=== PATIENT | female | born 1995 | race African-American/Black ===

== ENCOUNTER 2021-12-07 07:15 | Emergency (ER) | payer BC, SELFPAY ==
--- NOTE | ~2021-12-07 | CT_ITS ---
EXAMINATION: CT abdomen pelvis w con DATE: 12/07/2021 09:13 INDICATION: Right lower quadrant abdominal pain TECHNIQUE: Computed tomography (CT) of the abdomen and pelvis was performed with 100 cc Omnipaque 350 intravenous contrast. Automated exposure control and iterative reconstruction technique were employe d. Exam dose: 885.40 mGy-cm total exam DLP. COMPARISON: None. FINDINGS: There is minimal dependent atelectasis in the left lower lobe. Heart size is normal. No per icardial or pleural effusion. The liver, gallbladder, bile ducts, pancreas, pancreatic duct, spleen, adrenal glands and kidneys are unremarkable. No urinary tract calculus or hydroureteronephrosis. The urinary bladder is largely janna cuated. The uterus and adnexal areas are unremarkable. No evidence of appendicitis is noted. No bowel obstruction, bowel wall thickening, pneumatosis or int raperitoneal free air is detected. Normal caliber of the abdominal aorta. No intraperitoneal or retroperitoneal or pelvic mass lesion or adenopathy or ascites. There is mild to moderate degenerative disc disease at L5-S1 with posterior disc bulging at this leve l. Included skeletal structures are otherwise unremarkable. IMPRESSION: Degenerative disc disease and posterior disc bulging at L5-S1 No significant abnormality of the abdomen or pelvis Reviewed, dictated and finalized at [facility]. Reviewed, dictated and finalized at location A. DRYER
[2021-12-07 07:32] VITALS: BP 132/72; PULSE 82; RESP 16; TEMP 36.1; O2SAT 100
--- NOTE | 2021-12-07 07:54 | ED.ABDPAIN ---
HPI - Abdominal Pain General Chief Complaint: Abdominal Pain Stated Complaint: abd pain, nausea Time Seen by Provider: 12/07/21 07:24 Source: patient Mode of arrival: ambulatory Limitations: no limitations History of Present Illness HPI narrative: Patient complaining of right lower quadrant pain started 2 days ago, sharp, stabbing, intermittent, is constant today. Worse when she bends over, better if she keeps standing. Patient denies any fever, chills, vomiting, diarrhea, constipation. Patient have history of dysfunctional uterine bleeding for the last 6 months, has been on Provera for the last 2 months without significant improvement. Patient is sexually active, never been before. Patient drove herself to the emergency room from work, no history of abdominal surgery, smoking or drug use Related Data Allergies Allergy/AdvReac Type Severity Reaction Status Date / Time No Known Allergies Allergy Verified 12/07/21 07:38 Review of Systems Review of Systems: CONSTITUTIONAL: Denies fever, chills, or sweats. EYES: Denies visual changes, redness, or discharge. ENT: Denies rhinorrhea, congestion, sore throat, or otalgia. CARDIOVASCULAR: Denies chest pain, palpitations, or edema. RESPIRATORY: Denies cough or dyspnea. GASTROINTESTINAL: Denies abdominal pain, nausea, vomiting, or diarrhea. GENITOURINARY: Denies dysuria or hematuria. SKIN: Denies rash or itching. MUSCULOSKELETAL: Denies back pain, joint pain, or myalgia. NEUROLOGIC: Denies headache, numbness, or weakness. PSYCHIATRIC: Denies anxiety or depression. Exam Narrative: General appearance: Well-developed, well-nourished Skin: Normal color Head: Normocephalic, nontraumatic Eyes: Clear conjunctiva ENT: Oropharynx normal, ears normal, nose normal Neck: Supple, nontender Chest and respiratory: Airway patent, no respiratory distress, no accessory muscle use Heart: Regular rate/rhythm Abdomen: Soft, moderate tenderness right lower quadrant, positive guarding and rebound, no organomegaly, quiet bowel sounds Vascular: Normal peripheral pulses, normal capillary refill. Musculoskeletal: Normal range of motion, nontender back Neurologic: Alert and oriented ?3, CLAIMS CORRESPONDENCE CLERK is normal as tested, no gross motor deficit Course Course Emergency Course: Stable Vital Signs Vital signs: Vital Signs Temperature 36.1 C L 12/07/21 07:32 Pulse Rate 82 12/07/21 07:32 Respiratory Rate 16 12/07/21 07:32 Blood Pressure 132/72 12/07/21 07:32 Pulse Oximetry 100 12/07/21 07:32 Temperature 36.1 C L 12/07/21 07:32 Pulse Rate 82 12/07/21 07:32 Respiratory Rate 16 12/07/21 07:32 Blood Pressure 132/72 12/07/21 07:32 Pulse Oximetry 100 12/07/21 07:32 MDM - Abdominal Pain MDM Narrative Medical decision making narrative: Right lower quadrant pain. Depression diagnosis as below Differential Diagnosis Differential diagnosis: Likely abdominal pain, acute appendicitis, calculus of kidney, constipation, diverticulitis and other (Ovarian cyst, urinary tract infection) Lab Data Result diagrams: 12/07/21 07:59 12/07/21 07:59 Labs: Lab Results 12/07/21 12/07/21 12/07/21 Range/Units 07:59 07:59 08:29 WBC 4.3 L (4.5-10.0) K/mm3 RBC 3.80 L (4.2-5.4) M/mm3 Hgb 8.1 L (12.0-15.0) g/dL Hct 27.7 L (37.0-47.0) % MCV 72.9 L (80-100) fl MCH 21.3 L (26-34) pg MCHC 29.2 L (32-36) g/dl RDW 16.8 H (11.5-14.5) % Plt Count 341 (150-375) k/mm3 MPV 10.0 (7.4-10.4) fl Immature Gran % (Auto) 0.2 (0-0.5) % Neut % (Auto) 50.4 (45.5-73.1) % Lymph % (Auto) 38.2 (18.3-44.2) % [place] % (Auto) 7.2 (2.6-8.5) % Eos
[2021-12-07] MEDS: MORPHINE SULFATE (*CRX) 4 MG/ML INJ IV PUSH (08:02)
[2021-12-07] MEDS: ONDANSETRON INJ 4 MG/2 ML VIAL IV PUSH (08:02)
[2021-12-07] MEDS: SODIUM CHLORIDE 0.9% IV 1,000 ML 999 ML IV CONT (08:03)
[2021-12-07 08:06] LABS: Basophils Absolute Auto 0.1 K/mm3 (0.0-0.1); Basophils Percent Auto 1.2 % (0.2-1.2); Eosinophils Absolute Auto 0.1 K/mm3 (0-0.3); Eosinophils Percent Auto 2.8 % (0-4.4); Hematocrit 27.7 % (37.0-47.0); Hemoglobin 8.1 g/dL (12.0-15.0); Immature Granulocyte Absolute 0.01 K/mm3 (0.00-0.031); Immature Granulocyte Percent A 0.2 % (0-0.5); Lymphocytes Absolute Auto 1.64 K/mm3 (0.9-3.2); Lymphocytes Percent Auto 38.2 % (18.3-44.2); Mean Corpuscular HGB Conc 29.2 g/dl (32-36); Mean Corpuscular Hemoglobin 21.3 pg (26-34); Mean Corpuscular Volume 72.9 fl (80-100); Monocytes Absolute Auto 0.3 K/mm3 (0.1-0.6); Monocytes Percent Auto 7.2 % (2.6-8.5); Neutrophils Absolute Auto 2.2 K/mm3 (1.3-6.7); Neutrophils Percent Auto 50.4 % (45.5-73.1); Platelet Count Result 341 k/mm3 (150-375); Red Cell Distribution Width 16.8 % (11.5-14.5); White Blood Count 4.3 K/mm3 (4.5-10.0)
[2021-12-07 08:17] LABS: Anisocytosis 1+ (NORMAL); Hypochromasia 2+ (NORMAL); Platelet Estimate Adequate (Adequate)
[2021-12-07 08:18] LABS: Acanthocytes 1+ (NORMAL); Helmet Cells 1+ (NORMAL); Ovalocytes 2+ (NORMAL); Schistocytes 1+ (NORMAL); Tear Drop Cells 1+ (NORMAL)
[2021-12-07 08:20] LABS: Alanine Aminotransferase 18 U/L (4-35); Albumin Level 4.1 g/dL (3.5-5.1); Alkaline Phosphatase 37 U/L (38-126); Anion Gap 6 mmol/L (8-16); Aspartate Amino Transferase 43 U/L (14-36); Bilirubin,Total 0.5 mg/dL (0.2-1.3); Blood Urea Nitrogen 13 mg/dL (7-17); Calcium 8.5 mg/dL (8.4-10.2); Carbon Dioxide 23 mmol/L (22-30); Chloride 107 mmol/L (98-107); Estimated CRCL calculation 93 ml/min; Estimated Glomerular Filt Rate > 60; Glucose 91 mg/dL (65-110); Lipase 66 U/L (23-300); Potassium 3.9 mmol/L (3.4-5.0); Sodium 136 mmol/L (137-145)
[2021-12-07 08:40] LABS: Add Urine Microscopic? YES; Appearance Urine Clear (Clear); Bilirubin Urine Negative (Negative); Blood Urine Negative (Negative); Color Urine Yellow (Yellow); Glucose Urine UA Negative (Negative); Ketones Urine Negative (Negative); Leukocyte Esterase Ur Negative LEU/UL (Negative); Mucus Urine Heavy /lpf; Nitrate Urine Negative (Negative); Protein Urine 1+ mg/dL (Negative); RBC Urine 0-2 /hpf (0-2); Squamous Epithelial Cell Urine Occasional /hpf (Few); Urobilinogen Urine Negative mg/dL (<2.0); WBC Urine 0-3 /hpf
[2021-12-07 08:43] LABS: Specific Grav Ur 1.031 (1.001-1.035)
[2021-12-07 08:47] LABS: SPREG INTERNAL CONTROL Positive; Serum Qual hCG Negative
[2021-12-07 10:07] VITALS: BP 112/78; PULSE 73; RESP 16
== END 2021-12-07 10:07 | disposition home or self-care (01) ==
PROVIDERS: Emergency Provider Emergency Medicine
DX: N93.8 Other specified abnormal uterine and vaginal bleeding (principal); R10.30 Lower abdominal pain, unspecified; D50.0 Iron deficiency anemia secondary to blood loss (chronic)
CPT/HCPCS: 36415; 74177; 80053; 81001; 83690; 84703; 85025; 96361; 96374; 96375; 99284; J2270; J2405; J7030; Q9967

== ENCOUNTER 2022-01-03 15:04 | Outpatient (CLI) | payer BC, SELFPAY ==
--- NOTE | ~2022-01-03 | US_ITS ---
EXAMINATION: US pelvic complete w TV DATE: 01/03/2022 15:55 INDICATION: Abnormal uterine and vaginal bleeding. TECHNIQUE: Multiple transabdominal and endovaginal sonographic images of the pelvis were obtained. COMPARISON: None. FINDINGS: The uterus measures 7.5 x 3.6 x 4.6 cm. The endometrial complex measures 3 mm in thickness. The righ t ovary measures 4.1 x 3.2 x 2.5 cm. The left ovary measures 4.0 x 2.6 x 2.2 cm. There are multiple s ubcentimeter cysts at the periphery of both ovaries. Larger 2.2 cm anechoic cyst at the periphery of the left ovary. There is normal vascular flow in the ovaries. There is no free fluid in the pelvis. IMPRESSION: 1. 2.2 cm left adnexal cyst with multiple subcentimeter cysts at the periphery of both ovaries, the l atter which can be seen in the setting of polycystic ovarian disease. Reviewed, dictated and finalized at location A. CULTURAL ENGINEERING TEACHER IMPRESSION: 1. 2.2 cm left adnexal cyst with multiple subcentimeter cysts at the periphery of both ovaries, the latter which can be seen in the setting of polycystic ovar yuliana disease.
== END 2022-01-03 15:05 | disposition home or self-care (01) ==
LOC: ANHIMG 15:09
PROVIDERS: Visit Provider Student in an Organized Health Care Education/Training Program
DX: N93.8 Other specified abnormal uterine and vaginal bleeding (principal); R19.09 Other intra-abdominal and pelvic swelling, mass and lump
CPT/HCPCS: 76830; 76856

== ENCOUNTER 2022-01-25 11:41 | Outpatient (CLI) | payer BC, SELFPAY ==
[2022-01-25 12:22] LABS: Glucose 90 mg/dL (65-110)
[2022-01-25 12:42] LABS: Free T4 Free Thyroxine 0.82 ng/mL (0.78-2.19)
[2022-01-28 03:14] LABS: DHEA-Sulfate 127 mcg/dL (18-391); Insulin Level Total 4.3 uIU/mL (<=19.6)
[2022-01-28 08:19] LABS: LH 21.7 mIU/mL (***); Prolactin 11.1 ng/mL (***); Triiodothyronine T3 Free 3.2 pg/mL (2.3-4.2)
[2022-01-29 14:14] LABS: Testosterone Free 10.3 pg/mL (0.2-5.0); Testosterone Total 137 ng/dL (2-45)
== END 2022-01-25 11:42 | disposition home or self-care (01) ==
LOC: ANHLAB 11:43
PROVIDERS: Visit Provider Student in an Organized Health Care Education/Training Program
DX: E28.2 Polycystic ovarian syndrome (principal)
CPT/HCPCS: 36415; 82627; 82947; 83001; 83002; 83498; 83525; 84146; 84402; 84403; 84439; 84443; 84481

== ENCOUNTER 2022-03-01 11:15 | Outpatient (CLI) | payer OTHER, SELFPAY ==
[2022-03-01 11:49] LABS: Hemoglobin A1C 4.9 % (<5.7)
[2022-03-01 12:03] LABS: Beta HCG Quantitative < 2.39 mIU/ML
== END 2022-03-01 11:16 | disposition home or self-care (01) ==
LOC: ANHLAB 11:21
PROVIDERS: Visit Provider Student in an Organized Health Care Education/Training Program
DX: E28.2 Polycystic ovarian syndrome (principal)
CPT/HCPCS: 36415; 83036; 84702

== ENCOUNTER 2022-05-08 21:42 | Emergency (ER) | payer OTHER, SELFPAY ==
--- NOTE | ~2022-05-08 | CT_ITS ---
EXAMINATION: CT abdomen pelvis w con DATE: 05/09/2022 04:55 INDICATION: Left lower quadrant abdominal pain. TECHNIQUE: Computed tomography (CT) of the abdomen and pelvis was performed with 100 mL Omnipaque 300 intravenous contrast. Automated exposure control and iterative reconstruction technique were employe d. The dose-length product was 998.96 mGy-cm. COMPARISON: CT abdomen and pelvis 12/07/2021 FINDINGS: The visualized portions of the lung bases are clear without pneumonia or pleural effusion. The heart size is normal. No pericardial effusion. The liver, gallbladder, spleen, pancreas, adrenal glands, and kidneys are normal. There are no dilated loops of bowel. The appendix is normal. There ar e no pathologically enlarged lymph nodes. There is physiologic fluid in the pelvis. There is severe d egenerative disc disease at L5-S1. IMPRESSION: 1. No etiology for the patient's symptoms. Reviewed, dictated and finalized at location A.
[2022-05-08 21:57] VITALS: BP 129/94; PULSE 78; RESP 16; TEMP 36.3; O2SAT 98
[2022-05-09] VITALS (16 sets, daily range): BP systolic 123–137; BP diastolic 85–93; PULSE 52–100; RESP 16–18; TEMP 36.8; O2SAT 98–100
[2022-05-09 03:22] LABS: Basophils Absolute Auto 0.1 K/mm3 (0.0-0.1); Eosinophils Absolute Auto 0.4 K/mm3 (0-0.3); Eosinophils Percent Auto 5.7 % (0-4.4); Hematocrit 40.9 % (37.0-47.0); Hemoglobin 12.6 g/dL (12.0-15.0); Immature Granulocyte Absolute 0.02 K/mm3 (0.00-0.031); Immature Granulocyte Percent A 0.3 % (0-0.5); Lymphocytes Absolute Auto 3.04 K/mm3 (0.9-3.2); Lymphocytes Percent Auto 41.6 % (18.3-44.2); Mean Corpuscular HGB Conc 30.8 g/dl (32-36); Mean Corpuscular Volume 81.3 fl (80-100); Mean Platelet Volume 9.6 fl (7.4-10.4); Monocytes Absolute Auto 0.6 K/mm3 (0.1-0.6); Monocytes Percent Auto 8.6 % (2.6-8.5); Neutrophils Absolute Auto 3.1 K/mm3 (1.3-6.7); Neutrophils Percent Auto 42.8 % (45.5-73.1); Platelet Count Result 239 k/mm3 (150-375); Red Blood Count 5.03 M/mm3 (4.2-5.4); Red Cell Distribution Width 15.3 % (11.5-14.5); White Blood Count 7.3 K/mm3 (4.5-10.0)
[2022-05-09 03:31] LABS: Appearance Urine Clear (Clear); Bilirubin Urine Negative (Negative); Blood Urine Negative (Negative); Color Urine Yellow (Yellow); Glucose Urine UA Negative (Negative); Ketones Urine Trace mg/dL (Negative); Leukocyte Esterase Ur Negative LEU/UL (Negative); Nitrate Urine Negative (Negative); Protein Urine Trace mg/dL (Negative); Specific Grav Ur >= 1.030 (1.001-1.035); Urobilinogen Urine 0.2 mg/dL (<2.0)
[2022-05-09 03:32] LABS: Alanine Aminotransferase 27 U/L (6-35); Albumin Level 4.4 g/dL (3.5-5.1); Alkaline Phosphatase 53 U/L (38-126); Anion Gap 5 mmol/L (8-16); Aspartate Amino Transferase 41 U/L (14-36); Bilirubin,Total 0.3 mg/dL (0.2-1.3); Blood Urea Nitrogen 19 mg/dL (7-17); Carbon Dioxide 28 mmol/L (22-30); Chloride 107 mmol/L (98-107); Estimated CRCL calculation 99 ml/min; Estimated Glomerular Filt Rate > 60; Glucose 88 mg/dL (65-110); Lipase 73 U/L (23-300); Potassium 4.2 mmol/L (3.4-5.0); Sodium 140 mmol/L (137-145)
[2022-05-09 03:42] LABS: Mucus Urine Few /lpf; Squamous Epithelial Cell Urine Occasional /hpf (Few); WBC Urine 0-3 /hpf
[2022-05-09 03:47] LABS: Add Urine Microscopic? YES
--- NOTE | 2022-05-09 06:04 | ED.GENADULT ---
HPI - General Adult General Chief complaint: Abdominal Pain Stated complaint: abd pain Time Seen by Provider: 05/09/22 03:31 History of Present Illness HPI narrative: Patient is a 27-year-old female who presents ER with left-sided abdominal pain. Ongoing for 3 to 4 days. Associate with some diarrhea. Developed some bright red blood within her stool today that is only when she wipes. No fevers or chills or sweats. Pain is become more sharp in the left lower quadrant. No history of diverticulitis. No known sick contacts. Has not had any recent travel. Has not treated from any untreated water sources. Related Data Allergies Allergy/AdvReac Type Severity Reaction Status Date / Time No Known Allergies Allergy Verified 05/08/22 22:01 Review of Systems Review of Systems: All systems reviewed & are unremarkable except as noted in HPI and below Constitutional: Constitutional: Denies chills and Denies fever(s) Cardiovascular: Cardiovascular: Denies chest pain and Denies rapid heart rate Respiratory: Respiratory: Denies cough and Denies dyspnea Gastrointestinal: Gastrointestinal: Reports abdominal pain, Reports diarrhea, Denies nausea and Denies vomiting Genitourinary: Genitourinary: Denies dysuria and Denies flank pain PMFSH Past Medical History Medical History Anemia Asthma History of pulmonary embolism From OCP's History of uterine fibroid ??? Per pt Surgical History Surgical History [place] teeth removed Family History Family History Mother Asthma Diabetes mellitus Hypertension Heart disease Cerebrovascular accident Thyroid disorder Sibling Asthma Diabetes mellitus Depression Social History Social History Smoking status: Never smoker Alcohol intake: current Substance use: never Exam Narrative: GENERAL: Well-appearing, well-nourished, and in no acute distress. HEAD: Normocephalic, atraumatic. EYES: PERRL and EOMI. ENT: Mucous membranes moist. CHEST: Clear to auscultation. No respiratory distress. HEART: Regular rate and rhythm. Normal peripheral pulses. ABDOMEN: Soft, tender palpation left lower quadrant, no rebound or guarding. Nondistended. EXTREMITIES: Normal range of motion. No edema. SKIN: Warm, dry, no rash. NEURO: Alert and oriented x3. PSYCH: Normal mood and affect. Course Course Emergency Course: Patient resting comfortably. Informed results. Discharge home. Vital Signs Vital signs: Vital Signs Temperature 97.3 F L 05/08/22 21:57 Pulse Rate 78 05/08/22 21:57 Respiratory Rate 16 05/08/22 21:57 Blood Pressure 129/94 H 05/08/22 21:57 Pulse Oximetry 98 05/08/22 21:57 Oxygen Delivery Room Air 05/08/22 21:57 Temperature 98.2 F 05/09/22 02:33 Pulse Rate 76 05/09/22 03:46 Respiratory Rate 16 05/09/22 03:46 Blood Pressure 132/92 H 05/09/22 04:31 Pulse Oximetry 100 05/09/22 05:45 Oxygen Delivery Room Air 05/08/22 21:57 Medical Decision Making Vital Signs Vital Signs: Vital Signs Temperature 97.3 F L 05/08/22 21:57 Pulse Rate 78 05/08/22 21:57 Respiratory Rate 16 05/08/22 21:57 Blood Pressure 129/94 H 05/08/22 21:57 Pulse Oximetry 98 05/08/22 21:57 Oxygen Delivery Room Air 05/08/22 21:57 Temperature 98.2 F 05/09/22 02:33 Pulse Rate 76 05/09/22 03:46 Respiratory Rate 16 05/09/22 03:46 Blood Pressure 132/92 H 05/09/22 04:31 Pulse Oximetry 100 05/09/22 05:45 Oxygen Delivery Room Air 05/08/22 21:57 Lab Data Result diagrams: 05/09/22 03:14 05/09/22 03:14 Labs: Lab Results 05/09/22 05/09/22 05/09/22 Range/Units 03:14 03:14 03:25 WBC 7.3 (4.5-10.0) K/mm3 RBC 5.03 (4.2-5.4) M/mm3 Hgb 12.6 D (12.0-1
== END 2022-05-09 06:57 | disposition home or self-care (01) ==
PROVIDERS: Emergency Provider Emergency Medicine
DX: K52.9 Noninfective gastroenteritis and colitis, unspecified (principal); D64.9 Anemia, unspecified; J45.909 Unspecified asthma, uncomplicated; Z86.711 Personal history of pulmonary embolism
CPT/HCPCS: 36415; 74177; 80053; 81001; 81025; 83690; 85025; 99284; Q9967

== ENCOUNTER 2022-07-20 15:21 | Outpatient (CLI) | payer OTHER, SELFPAY ==
--- NOTE | ~2022-07-20 | CT_ITS ---
EXAMINATION: CT BRAIN W/O DATE: 07/20/2022 15:37 INDICATION: Headache TECHNIQUE: Computed tomography (CT) of the head was performed without intravenous contrast. The dose- length product was 605.33 mGy-cm. Automated exposure control and iterative reconstruction technique w ere employed. COMPARISON: No prior studies for comparison. FINDINGS: Normal brain parenchymal volume for age. Normal mark-white differentiation. No acute intrac ranial hemorrhage, infarction, mass or mass effect. No ventriculomegaly or midline shift. Midline sagittal images demonstrate a normal corpus callosum, c raniovertebral junction and sella turcica. Basilar cisterns are patent. Paranasal sinuses and mastoids are pneumatized. No depressed skull fractures. IMPRESSION: 1. No acute intracranial abnormality. Reviewed, dictated and finalized at location A.
== END 2022-07-20 15:22 | disposition home or self-care (01) ==
PROVIDERS: PCP Emergency Medicine; Visit Provider Emergency Medicine
DX: R51.9 Headache, unspecified (principal)
CPT/HCPCS: 70450

== ENCOUNTER 2022-08-21 11:18 | Emergency (ER) | payer OTHER, SELFPAY ==
[2022-08-21 11:22] VITALS: BP 113/85; PULSE 63; RESP 16; TEMP 36.4; O2SAT 100
--- NOTE | 2022-08-21 11:46 | ED.HA ---
HPI - Headache General Chief Complaint: Headache Stated Complaint: Headache Time Seen by Provider: 08/21/22 11:22 History of Present Illness HPI Narrative: 27-year-old female with a history of migraine headaches presents the emergency room for evaluation of a headache. Patient states that headache has been present since last night and located behind her right eye. Describes pain as a stabbing pain. Headache is associated with photophobia, phonophobia. Patient also endorses nausea. Headache is typical of prior migraines headaches. Related Data Allergies Allergy/AdvReac Type Severity Reaction Status Date / Time No Known Allergies Allergy Verified 08/21/22 12:05 Review of Systems Review of Systems: CONSTITUTIONAL: Denies fever, chills, or sweats. EYES: Denies visual changes, redness, or discharge. ENT: Denies rhinorrhea, congestion, sore throat, or otalgia. CARDIOVASCULAR: Denies chest pain, palpitations, or edema. RESPIRATORY: Denies cough or dyspnea. GASTROINTESTINAL: Reports nausea GENITOURINARY: Denies dysuria or hematuria. SKIN: Denies rash or itching. MUSCULOSKELETAL: Denies back pain, joint pain, or myalgia. NEUROLOGIC: Reports headache PSYCHIATRIC: Denies anxiety or depression. PMFSH Past Medical History Medical History Anemia Asthma History of pulmonary embolism From OCP's History of uterine fibroid ??? Per pt Surgical History Surgical History [place] teeth removed Family History Family History Mother Asthma Diabetes mellitus Hypertension Heart disease Cerebrovascular accident Thyroid disorder Sibling Asthma Diabetes mellitus Depression Social History Social History Smoking status: Never smoker Alcohol intake: current Substance use: never Exam Narrative: GENERAL: Well-appearing, well-nourished, no physical limitations, and in no acute distress. HEAD: Normocephalic, atraumatic. EYES: Conjunctivae normal, PERRLA and EOMI. ENT: External nose normal, Nares clear, no rhinorrhea or epistaxis. Mucous membranes moist. Oropharynx without tonsillar hypertrophy exudate or other lesions. External ears normal, bilateral TMs normal bilaterally NECK: Supple. No meningeal signs. CHEST: Clear to auscultation. No respiratory distress. No wheezes rales or rhonchi. HEART: Regular rate and rhythm. No murmur heard. Normal peripheral pulses. EXTREMITIES: Normal range of motion. No edema. No clubbing or cyanosis SKIN: Warm, dry, no rash. No noted wounds NEURO: No focal deficits. Alert and oriented x3. MAEW. CN's II-XI intact bilaterally, normal gait PSYCH: Cooperative. Normal mood and affect. Course Vital Signs Vital signs: Vital Signs Temperature 36.4 C L 08/21/22 11:22 Pulse Rate 63 08/21/22 11:22 Respiratory Rate 16 08/21/22 11:22 Blood Pressure 113/85 08/21/22 11:22 Pulse Oximetry 100 08/21/22 11:22 Oxygen Delivery Room Air 08/21/22 11:22 Temperature 36.4 C L 08/21/22 11:22 Pulse Rate 63 08/21/22 11:22 Respiratory Rate 16 08/21/22 11:22 Blood Pressure 113/85 08/21/22 11:22 Pulse Oximetry 100 08/21/22 11:22 Oxygen Delivery Room Air 08/21/22 11:22 Discharge Plan Discharge Clinical Impression: Headache Patient Disposition: Home, Self-Care Condition: Stable Instructions: Antibiotic Form, Acute Headache (ED) Additional Instructions: May take Tylenol as needed today for your headaches. Recommend following with your primary care physician, as you may need a medication to alleviate future migraines such as rizatriptan or sumatriptan. Prescriptions: No Action ferrous sulfate 325 mg (65 mg iron) tablet 325 mg PO DAILY Qty: 90 0RF metformin 500 mg tablet 500 mg PO DAILY Qty: 90 0RF Follow-up/Re
[2022-08-21] MEDS: SODIUM CHLORIDE 0.9% IV 1,000 ML 999 ML IV CONT (12:02)
[2022-08-21] MEDS: METOCLOPRAMIDE HCL INJ 10 MG/2 ML VIAL IV PUSH (12:02)
[2022-08-21] MEDS: KETOROLAC 30 MG/ML VIAL (*BKC) IV PUSH (12:03)
[2022-08-21] MEDS: methylPREDNISolone SOD SUCC 125 MG VIAL IV PUSH (12:03)
[2022-08-21] MEDS: diphenhydrAMINE HCl INJ 50 MG/ML VIAL 25 MG IV PUSH (12:03)
[2022-08-21 14:04] VITALS: BP 115/80; PULSE 74; RESP 18; O2SAT 100
== END 2022-08-21 14:05 | disposition home or self-care (01) ==
PROVIDERS: Emergency Provider Nurse Practitioner Family; PCP Emergency Medicine
DX: R51.9 Headache, unspecified (principal); J45.909 Unspecified asthma, uncomplicated; Z86.711 Personal history of pulmonary embolism; Z86.2 Personal history of diseases of the blood and blood-forming organs and certain disorders involving the immune mechanism
CPT/HCPCS: 96361; 96374; 96375; 99284; J1200; J1885; J2765; J2930; J7030

== ENCOUNTER 2022-08-28 15:06 | Outpatient (CLI) | payer OTHER, SELFPAY ==
[2022-08-28 15:49] LABS: Iron 87 ug/dL (37-170)
[2022-08-28 15:59] LABS: Percent Iron Saturation 25 % (20-50)
== END 2022-08-28 15:07 | disposition home or self-care (01) ==
PROVIDERS: PCP Emergency Medicine; Visit Provider Emergency Medicine
DX: D64.9 Anemia, unspecified (principal)
CPT/HCPCS: 36415; 83540; 83550

== ENCOUNTER 2022-10-09 14:52 | Emergency (ER) | payer OTHER, SELFPAY ==
--- NOTE | ~2022-10-09 | CT_ITS ---
EXAMINATION: CTA chest PE protocol DATE: 10/09/2022 20:12 INDICATION: SOA, h/o PE TECHNIQUE: Computed tomography angiography (CTA) of the chest was performed with 100 mL Omnipaque-350 intravenous contrast timed to evaluate the pulmonary arteries. Coronal maximum intensity projection 3D-reconstructions were created by the technologist. The dose-length product (DLP) was 497.81 mGy-cm. Automated exposure control and iterative reconstruction technique were employed. COMPARISON: X-ray chest, same date; CT abdomen and pelvis 05/09/2022. FINDINGS: Lung parenchyma and airways: Granuloma or intrapulmonary lymph node in the left upper lobe adjacent t o the major fissure. Minimal dependent atelectasis. The lungs are otherwise clear. Pleura: Unremarkable. Thoracic inlet, axillae and chest wall: Unremarkable. Thoracic aorta: Normal. Mediastinum: Normal. Heart and pericardium: Normal. Coronary artery calcifications: Absent. Upper abdomen: No significant finding. Bones: No acute osseous finding. Pulmonary arteries: Study quality: Adequate. No pulmonary emboli detected. IMPRESSION: No CT evidence of acute pulmonary embolus. No acute thoracic process detected. Reviewed, dictated and finalized at location K. OECONOMICS PROFESSOR
--- NOTE | ~2022-10-09 | XR_ITS ---
Clinical Indication: Shortness of breath, hemoptysis PA and lateral views of the chest: Comparison: None Findings: The lungs are clear, without evidence of focal consolidation or pleural effusion. Cardiome diastinal silhouette is within normal limits. Bones and soft tissues are unremarkable. Impression: Normal chest. Reviewed, dictated and finalized at location [] TIVE WRITING PROFESSOR Impression: Normal chest.
[2022-10-09 15:00] VITALS: BP 132/75; PULSE 63; RESP 18; TEMP 36.7; O2SAT 100
--- NOTE | 2022-10-09 15:03 | ECG_ITS ---
Measurements Intervals [place] Rate: 61 P: 41 OR: 180 QRS: 49 QRSD: 102 T: 29 QT: 432 QTc: 436 Interpretive Statements SINUS RHYTHM WITH SINUS ARRHYTHMIA INCOMPLETE RIGHT BUNDLE BRANCH BLOCK NO PREVIOUS ECG AVAILABLE FOR COMPARISON Electronically Signed On 10-09-2022 16:39:35 MEMBERSHIP COUNSELOR by Morenita Nevarez M.D.
[2022-10-09 15:30] LABS: Basophils Absolute Auto 0.1 K/mm3 (0.0-0.1); Basophils Percent Auto 0.9 % (0.2-1.2); Eosinophils Absolute Auto 0.3 K/mm3 (0-0.3); Eosinophils Percent Auto 4.5 % (0-4.4); Hematocrit 41.2 % (37.0-47.0); Immature Granulocyte Absolute 0.01 K/mm3 (0.00-0.031); Immature Granulocyte Percent A 0.1 % (0-0.5); Lymphocytes Absolute Auto 3.17 K/mm3 (0.9-3.2); Lymphocytes Percent Auto 47.5 % (18.3-44.2); Mean Corpuscular HGB Conc 31.6 g/dl (32-36); Mean Corpuscular Hemoglobin 26.1 pg (26-34); Mean Corpuscular Volume 82.7 fl (80-100); Mean Platelet Volume 9.9 fl (7.4-10.4); Monocytes Absolute Auto 0.5 K/mm3 (0.1-0.6); Monocytes Percent Auto 6.9 % (2.6-8.5); Neutrophils Absolute Auto 2.7 K/mm3 (1.3-6.7); Neutrophils Percent Auto 40.1 % (45.5-73.1); Platelet Count Result 247 k/mm3 (150-375); Red Blood Count 4.98 M/mm3 (4.2-5.4); Red Cell Distribution Width 13.8 % (11.5-14.5); White Blood Count 6.7 K/mm3 (4.5-10.0)
[2022-10-09 15:38] LABS: Alanine Aminotransferase 25 U/L (6-35); Albumin Level 4.2 g/dL (3.5-5.1); Alkaline Phosphatase 49 U/L (38-126); Anion Gap 6 mmol/L (8-16); Aspartate Amino Transferase 33 U/L (14-36); Bilirubin,Total 0.6 mg/dL (0.2-1.3); Blood Urea Nitrogen 15 mg/dL (7-17); Calcium 8.5 mg/dL (8.4-10.2); Carbon Dioxide 27 mmol/L (22-30); Chloride 104 mmol/L (98-107); Estimated CRCL calculation 91 ml/min; Estimated Glomerular Filt Rate > 60; Glucose 97 mg/dL (65-110); Potassium 3.5 mmol/L (3.4-5.0); Sodium 137 mmol/L (137-145)
[2022-10-09] MEDS: KETOROLAC 30 MG/ML VIAL (*BKC) IV PUSH (19:52)
--- NOTE | 2022-10-09 20:53 | ED.SOB ---
HPI - SOB/Dyspnea General Chief Complaint: Shortness of Breath/Dyspnea Stated Complaint: shortness of breath with cough - hemoptysis Time Seen by Provider: 10/09/22 19:19 History of Present Illness HPI Narrative: Patient is a 27-year-old female with history of PE who presents ER with concerns for recurrence of PE. Her previous one was related to control which she is no longer on. She completed her course of blood thinners and is no longer taking those. She reports over the last couple days she is developed some cough and pain with deep breaths. She has had some scant hemoptysis. No exertional chest pain or chest pressure. 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 She has not noticed any lower extremity swelling but has felt fatigue in her legs recently. Related Data Allergies Allergy/AdvReac Type Severity Reaction Status Date / Time No Known Allergies Allergy Verified 10/09/22 14:53 Review of Systems Review of Systems: All systems reviewed & are unremarkable except as noted in HPI and below Constitutional: Constitutional: Denies chills, Denies fatigue and Denies fever(s) ENT: Denies nasal congestion and Denies sore throat Cardiovascular: Cardiovascular: Reports chest pain, Denies rapid heart rate and Denies radiating jaw, neck or arm pain Respiratory: Respiratory: Denies cough and Denies dyspnea Comments: Pain with deep breath Gastrointestinal: Gastrointestinal: Denies abdominal pain, Denies nausea and Denies vomiting PMFSH Past Medical History Medical History Anemia Asthma History of pulmonary embolism From OCP's History of uterine fibroid ??? Per pt Surgical History Surgical History [place] teeth removed Family History Family History Mother Asthma Diabetes mellitus Hypertension Heart disease Cerebrovascular accident Thyroid disorder Sibling Asthma Diabetes mellitus Depression Social History Social History Smoking status: Never smoker Alcohol intake: current Substance use: never Exam Narrative: GENERAL: Well-appearing, well-nourished, and in no acute distress. HEAD: Normocephalic, atraumatic. EYES: PERRL and EOMI. CHEST: Clear to auscultation. No respiratory distress. HEART: Regular rate and rhythm. Normal peripheral pulses. ABDOMEN: Soft, nontender, nondistended. EXTREMITIES: Normal range of motion. No edema. Negative Homans' sign. SKIN: Warm, dry, no rash. NEURO: Alert and oriented x3. PSYCH: Normal mood and affect. Course Course Emergency Course: No PE. Suspect pleurisy. Will place on anti-inflammatories. She had improvement with Toradol. Vital Signs Vital signs: Vital Signs Temperature 98.0 F 10/09/22 15:00 Pulse Rate 63 10/09/22 15:00 Respiratory Rate 18 10/09/22 15:00 Blood Pressure 132/75 10/09/22 15:00 Pulse Oximetry 100 10/09/22 15:00 Oxygen Delivery Room Air 10/09/22 15:00 Temperature 98.0 F 10/09/22 15:00 Pulse Rate 64 10/09/22 21:15 Respiratory Rate 19 10/09/22 21:15 Blood Pressure 122/92 H 10/09/22 21:15 Pulse Oximetry 100 10/09/22 21:15 Oxygen Delivery Room Air 10/09/22 19:28 MDM - SOB/Dyspnea Lab Data 10/09/22 15:16 10/09/22 15:16 Labs: Lab Results 10/09/22 10/09/22 Range/Units 15:16 15:16 WBC 6.7 (4.5-10.0) K/mm3 RBC 4.98 (4.2-5.4) M/mm3 Hgb 13.0 (12.0-15.0) g/dL Hct 41.2 (37.0-47.0) % MCV 82.7 (80-100) fl MCH 26.1 (26-34) pg MCHC 31.6 L (32-36) g/dl RDW 13.8 (11.5-14.5) % Plt Count 247 (150-375) k/mm3 MPV 9.9 (7.4-10.4) fl Immature Gran % (Auto) 0.1 (0-0.5) % Neut % (Auto) 40.1 L (45.5-73.1) % Lymph % (Auto) 47.
[2022-10-09 21:03] VITALS: BP 120/72; PULSE 55; RESP 18; O2SAT 100
[2022-10-09 21:15] VITALS: BP 122/92; PULSE 64; RESP 19; O2SAT 100
== END 2022-10-09 21:16 | disposition home or self-care (01) ==
PROVIDERS: Emergency Medicine; Emergency Provider Emergency Medicine; PCP Emergency Medicine
DX: R09.1 Pleurisy (principal); Z86.711 Personal history of pulmonary embolism
CPT/HCPCS: 36415; 71046; 71275; 80053; 81025; 85025; 93005; 96374; 99284; J1885; Q9967

== ENCOUNTER 2022-11-18 09:49 | Emergency (ER) | payer OTHER, SELFPAY ==
--- NOTE | ~2022-11-18 | XR_ITS ---
EXAMINATION: XR knee RT min 4V DATE: 11/18/2022 10:08 INDICATION: Right knee injury and pain. TECHNIQUE: 4 views of right knee were obtained. COMPARISON: None. FINDINGS: Bone alignment is normal. No fracture. There is mild tricompartmental osteoarthritis. No kn ee joint effusion. IMPRESSION: 1. Mild right knee osteoarthritis. Reviewed, dictated and finalized at location A. 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
[2022-11-18 09:52] VITALS: BP 127/95; PULSE 61; RESP 16; TEMP 36.6; O2SAT 100
--- NOTE | 2022-11-18 10:04 | ED.EXTPRO ---
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 Patient has been evaluated by her primary care provider was instructed to wait before they ordered an x-ray . Patient is here today requesting an x-ray of her right knee. No new injury. Related Data Allergies Allergy/AdvReac Type Severity Reaction Status Date / Time No Known Allergies Allergy Verified 11/18/22 10:05 Review of Systems Review of Systems: CONSTITUTIONAL: Denies chills, or sweats. Reports fever and generalized body aches EYES: Denies visual changes, redness, or discharge. ENT: Denies otalgia. Reports nasal congestion runny nose and sore throat CARDIOVASCULAR: Denies chest pain, palpitations, or edema. RESPIRATORY: Denies dyspnea. Reports occasional cough GASTROINTESTINAL: Denies abdominal pain, nausea, vomiting, or diarrhea. GENITOURINARY: Denies dysuria or hematuria. SKIN: Denies rash or itching. MUSCULOSKELETAL: Denies back pain, joint pain, or myalgia. Reports generalized body aches NEUROLOGIC: Denies headache, numbness, or weakness. PSYCHIATRIC: Denies anxiety or depression. PMFSH Past Medical History Medical History Anemia Asthma History of pulmonary embolism From OCP's History of uterine fibroid ??? Per pt Surgical History Surgical History [place] teeth removed Family History Family History Mother Asthma Diabetes mellitus Hypertension Heart disease Cerebrovascular accident Thyroid disorder Sibling Asthma Diabetes mellitus Depression Social History Social History Smoking status: Never smoker Alcohol intake: current Substance use: never Comments At time of signature, agree with nursing past medical, surgical, social and family history. There is no relevant family history pertinent to the presenting complaint Exam Narrative: GENERAL: Well-appearing, well-nourished, and in no acute distress. HEAD: Normocephalic, atraumatic. EYES: PERRLA and EOMI. ENT: Nares clear, no rhinorrhea or epistaxis. Mucous membranes moist. NECK: Supple. CHEST: Clear to auscultation. No respiratory distress. HEART: Regular rate and rhythm. No murmur heard. Normal peripheral pulses. ABDOMEN: Soft, nontender, nondistended, normal active bowel sounds. EXTREMITIES: Normal range of motion. No edema. SKIN INTACT. NO DEFORMITY. NORMAL ROM, HAS FULL EXTENSION AND FLEXION. COMPARTMENTS SOFT. NEGATIVE ANTERIOR, POSTERIOR DRAWER SIGNS ON TEST. NO CREPITUS. DP PULSE, NORMAL CAPILLARY REFILL MCMURRAYS, PAIN TO RIGHT MEDIAL AND DISTAL KNEE WITH KNEE FLEXION, INTERNAL AND EXTERNAL FOOT ROTATION.NO ERYTHEMA OR INCREASED WARMTH TO CALF. . SKIN: Warm, dry, no rash. NEURO: No focal deficits. Alert and oriented x3. John Coma Scale Eye Opening: Spontaneous 4 John Coma Scale Motor: Obeys Commands 6 John Coma Scale Verbal: Oriented 5 Jackson Coma Scale Total 15 Course Course Level of Care: Express Care Visit Vital Signs Vital signs: Vital Signs Temperature 36.6 C 11/18/22 09:52 Pulse Rate 61 11/18/22 09:52 Respiratory Rate 16 11/18/22 09:52 Blood Pressure 127/95 H 11/18/22 09:52 Pulse Oximetry 100 11/18/22 09:52 Oxygen Delivery Room Air 11/18/22 09:52 Temperature 36.6 C 11/18/22 09:52 Pulse Rate 61 11/18/22 09:52 Respiratory Rate 16 11/18/22 09:52 Blood Pressure 127/95 H 11/18/22 09:52 Pulse Oximetry 100 11/18/22 09:52 Oxygen Delivery Room Air 11/18/22 09:52 MDM - Extremity (Nontraumatic) Different
== END 2022-11-18 10:30 | disposition home or self-care (01) ==
PROVIDERS: Emergency Provider Nurse Practitioner Family; PCP Emergency Medicine
DX: S80.01XA Contusion of right knee, initial encounter (principal); X58.XXXA Exposure to other specified factors, initial encounter; Y93.9 Activity, unspecified; Y99.0 Civilian activity done for income or pay; J45.909 Unspecified asthma, uncomplicated
CPT/HCPCS: 73564; 99213; G0463

== ENCOUNTER → 2022-12-20 16:20 | Outpatient (CLI) | payer OTHER, SELFPAY ==
--- NOTE | ~2022-12-20 | MR_ITS ---
MRI of the right knee Clinical history: Patellar dislocation Technique: Coronal proton density and proton density-weighted images, sagittal proton-density and T2 fat-sat images, and axial proton-density fat-saturated images were acquired. Findings: Anterior and posterior cruciate ligaments are intact. Medial collateral ligament and the la teral collateral ligament complex are intact. Popliteus tendon is intact. Horizontal tear of the posterior horn of the medial meniscus is present, extending into the body segm ent. No lateral meniscus tear seen. Articular cartilage in the medial lateral compartments, and along the femoral trochlea, as well prese rved. There is extensive high-grade chondromalacia along the lateral patellar facet. Tricompartmental osteophytes are present. Bone marrow signals are unremarkable. Minimal joint effusion present. No Tadeo's cyst. There is mild amorphous edema within Hoffa's fat pad . Impression: Horizontal tear of the posterior horn of the medial meniscus, extending into the body segment. 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 Moderate tricompartmental degen erative spurring. No imaging findings to suggest acute lateral patellar dislocation injury. Mild amorphous edema within Hoffa's fat pad, consistent with nonspecific inflammatory/edematous padilla e. Minimal joint effusion. Reviewed, dictated and finalized at location . 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 Moderate tricompartmental degenerative spurring. No imaging findings to suggest acute lateral patellar dislocation injury. Mild amorphous edema within Hoffa's fat pad, consistent with nonspecific inflam matory/edematous change. Minimal joint effusion.
== END ==
PROVIDERS: PCP Emergency Medicine; Visit Provider Orthopaedic Surgery
DX: M25.461 Effusion, right knee (principal); S83.241A Other tear of medial meniscus, current injury, right knee, initial encounter; X58.XXXA Exposure to other specified factors, initial encounter
CPT/HCPCS: 73721

== ENCOUNTER 2023-04-24 09:24 | Outpatient (CLI) | payer OTHER, SELFPAY ==
[2023-04-24 09:49] LABS: Basophils Absolute Auto 0.1 K/mm3 (0.0-0.1); Eosinophils Absolute Auto 0.4 K/mm3 (0-0.3); Eosinophils Percent Auto 5.3 % (0-4.4); Hematocrit 35.8 % (37.0-47.0); Immature Granulocyte Absolute 0.02 K/mm3 (0.00-0.031); Immature Granulocyte Percent A 0.3 % (0-0.5); Lymphocytes Absolute Auto 2.75 K/mm3 (0.9-3.2); Lymphocytes Percent Auto 39.1 % (18.3-44.2); Mean Corpuscular HGB Conc 30.7 g/dl (32-36); Mean Corpuscular Hemoglobin 24.9 pg (26-34); Mean Platelet Volume 9.8 fl (7.4-10.4); Monocytes Absolute Auto 0.5 K/mm3 (0.1-0.6); Monocytes Percent Auto 7.1 % (2.6-8.5); Neutrophils Absolute Auto 3.3 K/mm3 (1.3-6.7); Neutrophils Percent Auto 47.2 % (45.5-73.1); Platelet Count Result 270 k/mm3 (150-375); Red Blood Count 4.42 M/mm3 (4.2-5.4); Red Cell Distribution Width 16.4 % (11.5-14.5)
[2023-04-24 09:53] LABS: Alanine Aminotransferase 25 U/L (6-35); Alkaline Phosphatase 45 U/L (38-126); Anion Gap 5 mmol/L (8-16); Aspartate Amino Transferase 33 U/L (14-36); Bilirubin,Total 0.4 mg/dL (0.2-1.3); Blood Urea Nitrogen 11 mg/dL (7-17); Calcium 8.7 mg/dL (8.4-10.2); Carbon Dioxide 29 mmol/L (22-30); Chloride 107 mmol/L (98-107); Cholesterol 159 mg/dL (0-200); Estimated Glomerular Filt Rate > 60; Glucose 89 mg/dL (65-110); HDL Direct 54 mg/dL; Sodium 141 mmol/L (137-145); Triglycerides 45 mg/dL (<150)
[2023-04-24 10:04] LABS: LDL Cholesterol Direct 78 mg/dL
== END 2023-04-24 09:25 | disposition home or self-care (01) ==
LOC: ANHLAB 09:25
PROVIDERS: PCP Emergency Medicine; Visit Provider Nurse Practitioner Family
DX: Z13.0 Encounter for screening for diseases of the blood and blood-forming organs and certain disorders involving the immune mechanism (principal); Z13.228 Encounter for screening for other metabolic disorders
CPT/HCPCS: 36415; 80053; 80061; 85025

== ENCOUNTER 2023-04-26 15:19 | Outpatient (CLI) | payer OTHER, SELFPAY ==
[2023-04-26 15:56] LABS: Hematocrit 34.5 % (37.0-47.0); Hemoglobin 10.5 g/dL (12.0-15.0)
== END 2023-04-26 15:20 | disposition home or self-care (01) ==
LOC: ANHLAB 15:21
PROVIDERS: PCP Emergency Medicine; Visit Provider Registered Nurse
DX: N93.9 Abnormal uterine and vaginal bleeding, unspecified (principal)
CPT/HCPCS: 36415; 85014; 85018

== ENCOUNTER 2023-04-29 12:36 | Outpatient (CLI) | payer OTHER, SELFPAY ==
--- NOTE | ~2023-04-29 | US_ITS ---
EXAMINATION: US pelvic complete w TV DATE: 04/29/2023 14:28 INDICATION: Abnormal vaginal bleeding TECHNIQUE: Multiple transabdominal and endovaginal sonographic images of the pelvis were obtained. COMPARISON: None. FINDINGS: The uterus measures 6.6 x 3.8 x 4.0 cm. The endometrial complex measures 9 mm. A nabothian cyst is noted in the cervix. The right ovary measures 3.9 x 4.0 x 2.8 cm. The left ovary measures 4.6 x 2.6 x 3.6 cm. There is a 2.4 cm left adnexal cyst. There is normal vascular flow in the ovaries. T here is no free fluid in the pelvis. IMPRESSION: 1. No sonographic correlate for the patient's symptoms. Reviewed, dictated and finalized at location A.
== END 2023-04-29 12:37 | disposition home or self-care (01) ==
PROVIDERS: PCP Nurse Practitioner Family; Visit Provider Registered Nurse
DX: N93.9 Abnormal uterine and vaginal bleeding, unspecified (principal)
CPT/HCPCS: 76830; 76856

== ENCOUNTER 2023-06-25 11:02 | Emergency (ER) | payer OTHER, SELFPAY ==
[2023-06-25 11:02] VITALS: BP 147/72; PULSE 77; RESP 16; TEMP 36.6; O2SAT 100
--- NOTE | 2023-06-25 12:15 | ED.GENADULT ---
HPI - General Adult General Chief complaint: Unspecified Stated complaint: tongue pain Time Seen by Provider: 06/25/23 12:15 Source: patient Mode of arrival: ambulatory Limitations: no limitations History of Present Illness HPI narrative: Ms. White is a 28-year-old female patient presenting to the clinic today with complaints of tongue pain x2 weeks. She reports that the pain got worse yesterday when she was eating an onion ring. States that she had a burning sensation to her tongue and the pain radiated into her right ear. She denies any known injury to her tongue. Rates her pain currently 07/07. Related Data Home Medications Medication Instructions Recorded Confirmed rizatriptan 5 mg tablet See Rx Instructions PO .COMPLEX 04/23/23 04/23/23 topiramate 25 mg tablet 25 mg PO DAILY 04/23/23 04/23/23 Allergies Allergy/AdvReac Type Severity Reaction Status Date / Time No Known Allergies Allergy Verified 06/25/23 11:40 Review of Systems Review of Systems: Pertinent positives per HPI. Patient denies any fever, chills, rash, headache, visual changes, dizziness, cough, runny nose, sore throat, shortness of breath, chest pain, palpitations, nausea, vomiting, diarrhea, constipation, abdominal pain, or any urinary issues. [facility] Past Medical History Medical History Anemia Anxiety Asthma History of airborne allergies History of pulmonary embolism From OCP's History of uterine fibroid ??? Per pt Osteoporosis Surgical History Surgical History [place] teeth removed Family History Family History Mother Asthma Diabetes mellitus Hypertension Heart disease Cerebrovascular accident Thyroid disorder Depression Sibling Asthma Diabetes mellitus Depression Hypertension Heart disease Grandparent Asthma Hypertension Father Hypertension Social History Social History Smoking status: Never smoker Alcohol intake: current Alcohol use details: Rarely, special occasions Substance use: never Substance use type: does not use Lack of Transportation: No Lack of Food: Never True Current Housing: I Have Housing Concerned About Future Housing: No Difficulty Paying Gas/Electric Bills: No Difficulty Paying for Meds: No Currently Unemployed: No Education: Bachelor's Degree Difficulty w/ Childcare or Family Care: No Living arrangements: alone Gender identity (if verbalized by the patient): Female Exam Narrative: General: Well-developed, well nourished, in no apparent distress Head: Normocephalic, atraumatic Eyes: Pupils equally round and reactive to light bilaterally, EOM intact, sclera and conjunctive clear, no discharge, lids normal Ears: TMs intact and clear, ear canals clear, no drainage, grossly hearing normal. Nose: Nares patent, no discharge, no inflammation, no sinus tenderness. Mouth: Oropharynx without lesions or masses, good dentition, MMM. Pain along the right lateral aspect of the tongue without any obvious lesion or mass. No plaque-like lesions suggestive of thrush Neck: Supple, trachea midline, no enlargement of anterior or posterior cervical nodes, no thyroid masses or goiter palpable. Cardio: Regular rate and rhythm, s1 and s2 normal, no murmur appreciated. Resp: Clear to auscultation bilaterally anteriorly and posteriorly, no rhonchi, rales, wheezing or rubs Course Vital Signs Vital signs: Vital Signs Temperature 36.6 C 06/25/23 11:02 Pulse Rate 77 06/25/23 11:02 Respiratory Rate 16 06/25/23 11:02 Blood Pressure 147/72 H 06/25/23 11:02 Pulse Oximetry 100 06/25/23 11:02 Oxygen Delivery Room Air 06/25/23 11:02 Temperature 36.6 C 06/25/23 11:02 Pulse Rate 77 06/25/23 11:02
== END 2023-06-25 12:52 | disposition home or self-care (01) ==
LOC: ANHED 12:49
PROVIDERS: Emergency Provider Nurse Practitioner Family; PCP Nurse Practitioner Family
DX: K14.6 Glossodynia (principal); D64.9 Anemia, unspecified; J45.909 Unspecified asthma, uncomplicated; M81.0 Age-related osteoporosis without current pathological fracture; F41.9 Anxiety disorder, unspecified; Z86.711 Personal history of pulmonary embolism
CPT/HCPCS: 99283

== ENCOUNTER 2023-06-26 08:48 | Emergency (ER) | payer OTHER, SELFPAY ==
--- NOTE | 2023-06-26 09:04 | ED.GENADULT ---
[facility] - General Adult General Chief complaint: Unspecified Stated complaint: nerve pain Time Seen by Provider: 06/26/23 09:03 Source: patient Mode of arrival: ambulatory Limitations: no limitations History of Present Illness HPI narrative: This is a 28-year-old female who presents to the ED with chief complaint of right-sided tongue pain ongoing intermittently for the past 2 weeks. Patient states that in the last couple of days the pain seems to be radiating into the inner ear on the right side of the tongue. She reports a burning sensation. Denies electric shock pain. Denies any loss of taste. She reports sometimes swallowing is painful but not difficult. Denies any injuries. Denies any history of oral associated viral infections. Denies shingles. Denies fevers, chills, numbness, weakness, speech difficulty, drooling, trismus, recent illness. Related Data Home Medications Medication Instructions Recorded Confirmed rizatriptan 5 mg tablet See Rx Instructions PO .COMPLEX 04/23/23 04/23/23 topiramate 25 mg tablet 25 mg PO DAILY 04/23/23 04/23/23 Allergies Allergy/AdvReac Type Severity Reaction Status Date / Time No Known Allergies Allergy Verified 06/26/23 09:17 Review of Systems Review of Systems: All systems as dictated in [facility] Past Medical History Medical History Anemia Anxiety Asthma History of airborne allergies History of pulmonary embolism From OCP's History of uterine fibroid ??? Per pt Osteoporosis Surgical History Surgical History [place] teeth removed Family History Family History Mother Asthma Diabetes mellitus Hypertension Heart disease Cerebrovascular accident Thyroid disorder Depression Sibling Asthma Diabetes mellitus Depression Hypertension Heart disease Grandparent Asthma Hypertension Father Hypertension Social History Social History Smoking status: Never smoker Alcohol intake: current Alcohol use details: Rarely, special occasions Substance use: never Substance use type: does not use Lack of Transportation: No Lack of Food: Never True Current Housing: I Have Housing Concerned About Future Housing: No Difficulty Paying Gas/Electric Bills: No Difficulty Paying for Meds: No Currently Unemployed: No Education: Bachelor's Degree Difficulty w/ Childcare or Family Care: No Living arrangements: alone Gender identity (if verbalized by the patient): Female Exam Narrative: GENERAL: Well-appearing, well-nourished, and in no acute distress. HEAD: Normocephalic, atraumatic. EYES: PERRLA and EOMI. ENT: No lesions throughout the entire oral cavity. No lesions of the tongue. No loss of papillae. Nares clear, no rhinorrhea or epistaxis. Mucous membranes moist. Oropharynx without tonsillar hypertrophy exudate or other lesions. NECK: Supple. No adenopathy or masses. CHEST: No respiratory distress. Clear to auscultation. No wheezes rales or rhonchi HEART: Regular rate and rhythm. No murmur heard. Normal peripheral pulses. ABDOMEN: Soft, nontender, nondistended, normal active bowel sounds. MSK: Normal range of motion. No edema. SKIN: Warm, dry, no rash. NEURO: Alert and oriented x3. No focal deficits. PSYCH: Normal mood and affect. Course Vital Signs Vital signs: Vital Signs Temperature 97.6 F 06/26/23 09:09 Pulse Rate 65 06/26/23 09:09 Respiratory Rate 18 06/26/23 09:09 Blood Pressure 161/89 H 06/26/23 09:09 Pulse Oximetry 100 06/26/23 09:09 Oxygen Delivery Room Air 06/26/23 09:09 Temperature 97.6 F 06/26/23 09:09 Pulse Rate 65 06/26/23 09:09 Respiratory Rate 18 06/26/23 09:09 Blood Pressure 161/89 H 06/26/23 09:09 Pulse Oximetry 100
[2023-06-26 09:09] VITALS: BP 161/89; PULSE 65; RESP 18; TEMP 36.4; O2SAT 100
== END 2023-06-26 09:54 | disposition home or self-care (01) ==
PROVIDERS: Emergency Provider Physician Assistant; PCP Nurse Practitioner Family
DX: K14.6 Glossodynia (principal)
CPT/HCPCS: 99281

== ENCOUNTER 2023-06-27 07:51 | Outpatient (CLI) | payer OTHER, SELFPAY | END 2023-06-27 07:52 | disposition home or self-care (01) | PROVIDERS: PCP Nurse Practitioner Family; Visit Provider Registered Nurse | DX: N92.0 Excessive and frequent menstruation with regular cycle (principal) | CPT/HCPCS: 36415; 85014; 85018 ==

== ENCOUNTER 2023-08-11 08:24 | Outpatient (CLI) | payer OTHER, SELFPAY ==
--- NOTE | ~2023-08-11 | MR_ITS ---
EXAMINATION: MRA brain wo con DATE: 08/11/2023 09:16 INDICATION: Disorder of trigeminal nerve, unspecified. Right jaw and tongue pain. TECHNIQUE: Magnetic resonance angiography (MRA) of the brain was performed without intravenous contra st with T1-weighted SPGR by the 3D [id number] technique. Maximum intensity projection 3D-reconstr uctions were obtained. COMPARISON: Head CT 07/20/2022 FINDINGS: There are mucous retention cysts in the maxillary sinuses. The vertebral arteries are codominant. The re is no significant stenosis of basilar artery or the posterior cerebral arteries. There is no signi ficant stenosis of the intracranial internal carotid arteries or anterior or middle cerebral arteries . Anterior communicating artery is normal. The posterior communicating arteries are normal. There is no aneurysm. Right trigeminal nerve is normal. IMPRESSION: 1. Normal MRA. No vascular loop compression to explain right face pain. Reviewed, dictated and finalized at location A.
== END 2023-08-11 08:25 | disposition home or self-care (01) ==
PROVIDERS: PCP Nurse Practitioner Family; Visit Provider Nurse Practitioner Family
DX: G50.9 Disorder of trigeminal nerve, unspecified (principal)
CPT/HCPCS: 70544

== ENCOUNTER 2023-11-01 11:56 | Outpatient (CLI) | payer OTHER, SELFPAY ==
--- NOTE | ~2023-11-01 | MR_ITS ---
EXAMINATION: MR shoulder LT wo con DATE: 11/01/2023 12:31 INDICATION: Unspecified left shoulder injury TECHNIQUE: Magnetic resonance imaging (MRI) of the left shoulder was performed without intravenous co ntrast. Sequences included axial PD-weighted FS FSE, coronal oblique PD-weighted FS FSE, coronal obli que T2-weighted FS FSE, sagittal PD-weighted FS FSE, and sagittal T1-weighted SE. COMPARISON: None. FINDINGS: Coracoacromial arch: The acromion undersurface is flat in morphology (type I). The coracoacromial ligament is normal. Mild acromioclavicular osteoarthritis. Rotator cuff: The supraspinatus, infraspinatus and teres minor tendons are normal. The subscapularis tendon is norm al. Normal rotator cuff muscle bulk and signal. Biceps tendon, glenoid labrum and glenohumeral cartilage: Long head of the biceps tendon is normal. Glenoid labrum is normal. Glenohumeral cartilage is normal. Fluid: Small amount of fluid in the long head biceps tendon sheath which is disproportionate to the physiolo gic amount fluid in the glenohumeral joint space consistent with mild bicipital tenosynovitis. No loo se osteochondral bodies. Prior small amount of fluid in the subacromial/subdeltoid bursa consistent w ith minimal bursitis. Bones: Normal marrow signal with no edema, fracture or abnormal marrow replacing process. IMPRESSION: 1. Mild bicipital tenosynovitis. 2. Mild acromioclavicular osteoarthritis. 3. Minimal subacromial/subdeltoid bursitis. Reviewed, dictated and finalized at location A. FIREMAN
== END 2023-11-01 11:57 ==
LOC: MICIMG 11:57
PROVIDERS: PCP Orthopaedic Surgery; Visit Provider Nurse Practitioner Family
DX: S49.92XA Unspecified injury of left shoulder and upper arm, initial encounter (principal); M75.22 Bicipital tendinitis, left shoulder; M19.012 Primary osteoarthritis, left shoulder; M75.52 Bursitis of left shoulder; X58.XXXA Exposure to other specified factors, initial encounter
CPT/HCPCS: 73221

== ENCOUNTER 2024-01-24 15:46 | Outpatient (CLI) | payer OTHER, SELFPAY ==
--- NOTE | ~2024-01-24 | XR_ITS ---
EXAMINATION: XR chest 2V Exam Date/Time: 01/24/2024 16:14 CDT HISTORY: R05.8 - Other specified cough WITH CHEST PAIN Comparison: 10/09/2022. RESULT: Lines, tubes, and devices: None. Lungs and pleura: Clear. Cardiomediastinal silhouette: Stable. Other: No acute osseous or upper abdominal finding. IMPRESSION: No acute cardiopulmonary process. Reviewed, dictated and finalized at location K.
[2024-01-24 16:28] LABS: D Dimer 0.33 ug/mL (<0.48)
== END 2024-01-24 15:47 | disposition home or self-care (01) ==
LOC: ANHLAB 15:47
PROVIDERS: PCP Nurse Practitioner Family; Visit Provider Nurse Practitioner Family
DX: M79.604 Pain in right leg (principal); R05.8 Other specified cough; R06.02 Shortness of breath; R07.9 Chest pain, unspecified
CPT/HCPCS: 36415; 71046; 85380

== ENCOUNTER 2024-05-23 12:50 | Emergency (ER) | payer OTHER, SELFPAY ==
[2024-05-23 12:52] VITALS: BP 132/95; PULSE 75; RESP 16; TEMP 36.6; O2SAT 100
--- NOTE | 2024-05-23 13:28 | ED.HA ---
HPI - Headache General Chief Complaint: Headache Stated Complaint: Spinal Tab Pain Since Yesterday Time Seen by Provider: 05/23/24 13:09 History of Present Illness HPI Narrative: This is a 29-year-old female with a past medical history significant for chronic migraine headaches. Yesterday she underwent a lumbar puncture at [facility]. Patient states she had an uncomplicated procedure and went home feeling okay but woke up in the middle of the night with a headache she describes as a pulling sensation down her neck. She states that it is worse when she sits up and her back at the insertion site of the needle also hurts slightly. Denies any fever, chills, vision changes, nausea, vomiting, weakness, fatigue. Patient states that she underwent a lumbar puncture for evaluation for chronic headaches that are not explained according to her neurologist. She has a follow-up neurology appointment in the upcoming weeks. Denies any trauma and does not take any blood thinner medications or any kind of antiepileptic medications. Related Data Home Medications Medication Instructions Recorded Confirmed rizatriptan 5 mg tablet See Rx Instructions PO .COMPLEX 04/23/23 02/10/24 topiramate 25 mg tablet 25 mg PO DAILY 04/23/23 02/10/24 levonorgestrel 21 mcg/24 hr (up to 1 device intrauterine ONCE 11/20/23 02/10/24 8 years) 52 mg intrauterine device (Mirena) Allergies Allergy/AdvReac Type Severity Reaction Status Date / Time No Known Allergies Allergy Verified 05/23/24 12:55 Review of Systems Review of Systems: As reviewed [facility] Past Medical History Medical History Anemia Anxiety Asthma History of airborne allergies History of pulmonary embolism From OCP's History of uterine fibroid ??? Per pt Osteoporosis Surgical History Surgical History [place] teeth removed Family History Family History Mother Asthma Diabetes mellitus Hypertension Heart disease Cerebrovascular accident Thyroid disorder Depression Sibling Asthma Diabetes mellitus Depression Hypertension Heart disease Grandparent Asthma Hypertension Father Hypertension Social History Social History Smoking status: Never smoker Alcohol intake: current Alcohol use details: Rarely, special occasions Substance use: never Substance use type: does not use Lack of Transportation: No Lack of Food: Never True Current Housing: I Have Housing Concerned About Future Housing: No Difficulty Paying Gas/Electric Bills: No Difficulty Paying for Meds: No Currently Unemployed: No Education: Bachelor's Degree Difficulty w/ Childcare or Family Care: No Living arrangements: alone Gender identity (if verbalized by the patient): Female Exam Narrative: GENERAL: [Well-appearing, well-nourished, and in no acute distress.] HEAD: [Normocephalic, atraumatic.] EYES: [PERRLA and EOMI.] ENT: Nares clear, no rhinorrhea or epistaxis. Mucous membranes moist. NECK: Supple. CHEST: [Clear to auscultation. No respiratory distress.] HEART: [Regular rate and rhythm]. No murmur heard. [Normal peripheral pulses.] ABDOMEN: [Soft, nondistended], [nontender], [No rigidity or guarding] EXTREMITIES: Normal range of motion. [No edema.] SKIN: Warm, dry, no rash. NEURO: [No focal deficits]. Alert and oriented [x3.] PSYCH: [Normal mood and affect.] Course Vital Signs Vital signs: Vital Signs Temperature 36.6 C 05/23/24 12:52 Pulse Rate 75 05/23/24 12:52 Respiratory Rate 16 05/23/24 12:52 Blood Pressure 132/95 H 05/23/24 12:52 Pulse Oximetry 100 05/23/24 12:52 Oxygen Delivery Room Air 05/23/24 12:52 Temperature 36.6 C 04/28
[2024-05-23] MEDS: LACTATED RINGERS 1,000 ML 999 ML IV CONT (13:55)
[2024-05-23] MEDS: dexAMETHasone SOD PHOS INJ 10 MG/ML 1 ML VIAL IV PUSH (13:57)
[2024-05-23] MEDS: diphenhydrAMINE HCl INJ 50 MG/ML VIAL 25 MG IV PUSH (13:59)
[2024-05-23] MEDS: PROCHLORPERAZINE EDISYLATE 10 MG/2 ML VIAL IV PUSH ×2 (14:00→15:42)
[2024-05-23] MEDS: MAGNESIUM SULF 2 GM/WATER 50ML 2 GM/50 ML BAG IVPB (14:05)
[2024-05-23 14:19] LABS: Basophils Percent Auto 0.8 % (0.2-1.2); Eosinophils Absolute Auto 0.1 K/mm3 (0-0.3); Eosinophils Percent Auto 2.8 % (0-4.4); Hemoglobin 12.6 g/dL (12.0-15.0); Immature Granulocyte Absolute 0.02 K/mm3 (0.00-0.031); Immature Granulocyte Percent A 0.4 % (0-0.5); Lymphocytes Absolute Auto 1.37 K/mm3 (0.9-3.2); Lymphocytes Percent Auto 27.1 % (18.3-44.2); Mean Corpuscular HGB Conc 31.5 g/dl (32-36); Mean Corpuscular Hemoglobin 26.3 pg (26-34); Mean Corpuscular Volume 83.5 fl (80-100); Mean Platelet Volume 9.6 fl (7.4-10.4); Monocytes Absolute Auto 0.4 K/mm3 (0.1-0.6); Monocytes Percent Auto 7.7 % (2.6-8.5); Neutrophils Absolute Auto 3.1 K/mm3 (1.3-6.7); Neutrophils Percent Auto 61.2 % (45.5-73.1); Platelet Count Result 229 k/mm3 (150-375); Red Blood Count 4.79 M/mm3 (4.2-5.4); Red Cell Distribution Width 15.2 % (11.5-14.5); White Blood Count 5.1 K/mm3 (4.5-10.0)
[2024-05-23 14:29] LABS: Alanine Aminotransferase 22 U/L (6-35); Alkaline Phosphatase 50 U/L (38-126); Anion Gap 7 mmol/L (4-12); Aspartate Amino Transferase 29 U/L (14-36); Bilirubin,Total 0.2 mg/dL (0.2-1.3); Blood Urea Nitrogen 16 mg/dL (7-17); Calcium 8.8 mg/dL (8.4-10.2); Carbon Dioxide 30 mmol/L (22-30); Chloride 102 mmol/L (98-107); Estimated CRCL calculation 83 ml/min; Estimated Glomerular Filt Rate > 60; Glucose 99 mg/dL (65-110); Potassium 3.7 mmol/L (3.4-5.0); Sodium 139 mmol/L (137-145)
[2024-05-23 14:51] LABS: BEDSIDEPREGUCG Negative
[2024-05-23] MEDS: methocarbamoL 500 MG TABLET PO (15:42)
[2024-05-23 16:05] VITALS: BP 140/90; PULSE 64; RESP 16; O2SAT 100
== END 2024-05-23 16:05 | disposition home or self-care (01) ==
PROVIDERS: Emergency Provider Student in an Organized Health Care Education/Training Program; PCP Nurse Practitioner Family
DX: G97.1 Other reaction to spinal and lumbar puncture (principal); G43.909 Migraine, unspecified, not intractable, without status migrainosus; F41.9 Anxiety disorder, unspecified; J45.909 Unspecified asthma, uncomplicated; M81.0 Age-related osteoporosis without current pathological fracture; Z86.711 Personal history of pulmonary embolism
CPT/HCPCS: 36415; 80053; 81025; 83735; 85025; 96365; 96366; 96375; 99284; A9270; J0780; J1100; J1200; J3475; J7120

== ENCOUNTER 2024-06-22 14:53 | Outpatient (CLI) | payer OTHER, SELFPAY ==
--- NOTE | ~2024-06-22 | US_ITS ---
EXAMINATION: US soft tissue head and neck DATE: 06/22/2024 15:28 INDICATION: Right submandibular lump. TECHNIQUE: Multiple grayscale and Doppler ultrasound images of the head and neck were obtained. COMPARISON: None FINDINGS: There is a normal submandibular lymph node in the patient's area of concern in right neck. There is a borderline-enlarged left submandibular lymph node measuring 2.8 x 1.0 cm. IMPRESSION: 1. No abnormal neck mass or lymphadenopathy in the patient's area of concern in right submandibular r egion. 2. Borderline enlarged left submandibular lymph node, likely reactive. Reviewed, dictated and finalized at location A. IMPRESSION: 1. No abnormal neck mass or lymphadenopathy in the patient's area of concern in right submandibular region. 2. Borderline enlarged left submandibular lymph node, likely reactive.
== END 2024-06-22 14:54 | disposition home or self-care (01) ==
LOC: ANHIMG 14:55
PROVIDERS: PCP Nurse Practitioner Family; Visit Provider Nurse Practitioner Family
DX: R22.1 Localized swelling, mass and lump, neck (principal)
CPT/HCPCS: 76536

== ENCOUNTER 2024-12-01 06:00 | Emergency (ER) | payer OTHER, SELFPAY ==
[2024-12-01 06:01] VITALS: BP 126/87; PULSE 73; RESP 18; TEMP 36.8; O2SAT 100
--- OUTSIDE RECORDS SUMMARY | 2024-12-01 06:02 | XMS_ITS | Patient Health Summary ---
Author Organization [facility] Address [address] [place] [address] Care Team Providers Care Reading Instructor Name Role Phone Suzanna Soto LACHELLE-DRAWER FITTER Primary Care Provider + Note from [facility],non-owned Affiliates and Associated Physician Practices is amultiple site organization consisting of ambulatory clinics and hospital sitesin [place], [place], [place] and [place]. This disclosure is being madepursuant to the Care Everywhere program and may not contain all information available regarding this patient. Last updated 18.[facility] Allergies * Seasonal(Cough,Eye Discomfort,Eye Itching,Eye Redness,Headache,Itching, Shortness of Breath,Wheezing) -High Criticality Medications * Be aware that medications may not be up to date on this document. Alwaysverify current medications with the patient. * rizatriptan (Maxalt) 5 MG tablet(Started 02/19/2024) TAKE 1 TABLET BY MOUTH 1 TIME AT EARLY ONSET OF MIGRAINE. MAY REPEAT 1 TIME AFTER 2 HOURS NEEDED 11 refills by 02/18/2025 * fluticasone propionate (Flonase) 50 MCG/ACT nasal spray(Started 05/31/2023) SHAKE LIQUID AND USE 1 SPRAY IN EACH NOSTRIL TWICE DAILY * hydrocortisone (Hytone) 1 % ointment(Started 02/10/2024) APPLY TOPICALLY TO THE AFFECTED AREA THREE TIMES DAILY NEEDED FOR RASH * Mirena, 52 MG, 20 MCG/DAY IUD(Started 11/04/2023) * acetaZOLAMIDE ER 12hr (Diamox Sequel) 500 MG capsule(Started 05/26/2024) Take 1 (one) capsule by mouth 2 times daily 11 refills by 05/26/2025 * doxycycline hyclate 100 MG tablet(Started 07/02/2024) * buPROPion XL 24hr (Wellbutrin-XL) 300 MG tablet 1 tablet in the morning Orally Once a day for 90 days * sertraline (Zoloft) 50 MG tablet 1.5 tablet Oral Once a day for 90 days * traZODone (Desyrel) 50 MG tablet(Started 02/26/2024) 1 tablet at bedtime as needed Oral Once a day for 90 days * albuterol HFA (Proventil; Ventolin; Proair) 108 (90 Base) MCG/ACT inhaler (Started 07/28/2024) * Levonorgestrel (MIRENA, 52 MG, IU)(Started 02/26/2024) MIRENA 21 MCG/24 HR (UP TO 8 YEARS) 52 MG INTRAUTERINE DEVICE * valACYclovir (Valtrex) 500 MG tablet(Started 02/26/2024) Oral * fluticasone diskus (Flovent Diskus) 50 MCG/ACT inhaler(Started 02/26/2024) Inhalation * topiramate (Topamax) 25 MG tablet(Started 09/07/2024) TAKE 1 TABLET BY MOUTH TWICE DAILY 3 refills by 09/07/2025 Active Problems No known active problems Social History Tobacco Use Types Packs/Day Years Used Date Smoking Tobacco: Never Smokeless Tobacco: Never Tobacco Cessation:Counseling Given: Not Answered Alcohol Use Standard Drinks/Week Comments Yes 0 (1 standard drink = 0.6 oz pur e alcohol) Occassionally AUDIT-C Answer Date Recorded Q1: How often do you have a drink containing alc ohol? 2-4 times a month 05/22/2024 Average Number of Drinks Not on file 024 Frequency of Binge Drinking Not on file 04/28 Sex and Gender Information Value Date Recorded Sex Assigned at Female 05/11/2024 7:36 AM CDT Gender Identity Female 05/11/2024 7:36 AM CDT Sexual Orientation Straight 05/11/2024 7: 36 AM CDT Last Filed Vital Signs Vital Sign Reading Time Taken Comments Blood Pressure 154/95 05/26/2024 6:54 AM CDT Pulse 65 05/26/2024 6:54 AM CDT Temperature 36.4 ??C (97.6 ??F) 05/26/2024 6:54 AM CD T Respiratory Rate 18 05/26/2024 6:54 AM CDT Oxygen Saturation 100% 05/26/2024 6:54 AM CDT Inhaled Oxygen Concentration - - Weight 86.2 kg (190 lb) 05/26/2024 6:54 AM CDT Height 180.3 cm (5' 11 ) 05/26/2024 6:54 AM CDT Body Mass Index 26.5 05/26/2024 6:54 AM CDT Procedures * OPTIC NERVE ANALYSIS OCT(Performed 08/05/2024) Performed for IIH (idiopathic intracranial hypertension) * BRANCH AUTO VISUAL FIELD EXTENDED(Performed 08/05/2024) Performed for IIH (idiopathic intracranial hypertension) * FUNDUS PHOTO BOTH EYES(Performed 07/15/2024) Performed for IIH (idiopathic intracranial hypertension) * RETINAL ANALYSIS OCT(Performed 07/15/2024) Performed for IIH (idiopathic intracranial hypertension) * BRANCH AUTO VISUAL FIELD EXTENDED(Performed 07/15/2024) Performed for Papilledema * MRI ANGIO BRAIN VENOUS WWO CONT(Performed 07/04/2024) Performed for Papilledema * MRI BRAIN WWO CONTRAST(Performed 07/04/2024) Performed for Papilledema * MRI ORBITS OR FACE WWO CONTRAST(Performed 07/04/2024) Performed for Papilledema * CREATININE - POCT INTERFACED(Performed 07/04/2024) * CBC W AUTO DIFFERENTIAL(Performed 05/26/2024) * COMPREHENSIVE METABOLIC PANEL(Performed 05/26/2024) * CELL COUNT W DIFFERENTIAL CSF(Performed 05/22/2024) Performed for Papilledema * PROTEIN CSF(Performed 05/22/2024) Performed for Papilledema * GLUCOSE CSF(Performed 05/22/2024) Performed for Papilledema * FL LUMBAR PUNCTURE(Performed 05/22/2024) Performed for Papilledema * HCG URINE QUALITATIVE - POCT (IP) INTERFACED(Performed 05/22/2024) * HCG URINE QUAL POCT NOTIFICATION(Performed 05/22/2024) Performed for Preop examination * PROPHYLAXIS RETINA DETACH PHOTOCOAG OS(Performed 05/15/2024) 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 * PROPHYLAXIS RETINA DETACH PHOTOCOAG OD(Performed 05/07/2024) 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, Lattice degeneration of peripheral retina, bilateral * RETINAL ANALYSIS OCT(Performed 05/07/2024) Performed for Retinal tear of right eye * MRI ORBITS OR FACE WWO CONTRAST(Performed 03/21/2024) Performed for Trigeminal neuralgia, Other complicated headache syndrome * MRI ANGIO BRAIN ARTERIAL WO CONT(Performed 03/21/2024) Performed for Trigeminal neuralgia, Other complicated headache syndrome * MRI BRAIN WWO CONTRAST(Performed 03/21/2024) Performed for Trigeminal neuralgia, Other complicated headache syndrome * CREATININE - POCT INTERFACED(Performed 03/21/2024) * CT HEAD WO CONTRAST(Performed 10/29/2022) Performed for Other complicated headache syndrome * XR LUMBAR SPINE 2 OR 3VW(Performed 09/06/2022) Performed for Low back pain, unspecified back pain laterality, unspecified chronicity, unspecified whether sciatica present Results * OPTIC NERVE ANALYSIS OCT (08/05/2024 9:18 AM CDT) Anatomical Region Laterality Modality Head External-Camera Photography Narrative 08/05/2024 10:44 AM CDT Images from the original result were not included. Pieter Knott MD OPHTHALMOLOGY SCHED ORD W PACS * BRANCH AUTO VISUAL FIELD EXTENDED (08/05/2024 9:18 AM CDT) Anatomical Region Laterality Modality Head External-Camera Photography Pieter Knott MD OPHTHALMOLOGY SCHED ORD W PACS * FUNDUS PHOTO BOTH EYES (07/15/2024 12:32 PM CDT) Anatomical Region Laterality Modality Head External-Camera Photography Narrative 07/15/2024 12:44 PM CDT Images from the original result were not included. Fundus photos: No papilledema, Jaron's lines, high water violeta seen OU. Retinopexy seen far temporal periphery OD. Pieter Knott MD OPHTHALMOLOGY SCHED ORD W PACS * RETINAL ANALYSIS OCT (07/15/2024 12:32 PM CDT) Anatomical Region Laterality Modality Head External-Camera Photography Narrative 07/15/2024 12:59 PM CDT Images from the original result were not included. OCT [place] Nerve - no significant swelling/edema or thinning of RNFL OU. Avg 102 OD, 103 OS. OCT [place] Macula - normal retinal layers without disruption OU Pieter Knott MD OPHTHALMOLOGY SCHED ORD W PACS * BRANCH AUTO VISUAL FIELD EXTENDED (07/15/2024 10:20 AM CDT) Anatomical Region Laterality Modality Head External-Camera Photography Narrative 07/15/2024 1:12 PM CDT Images from the original result were not included. HVF 24-2 07/15/24 Superonasal defect OD. Full field OS. Good reliability OU. Foveal threshold 36 dB OD, 37 dB OS. VFI 93% OD, 97% OS. MD -2.85 OD, -1.95 OS. Pieter Knott MD OPHTHALMOLOGY SCHED ORD W PACS * MRI ANGIO BRAIN VENOUS WWO CONT (07/04/2024 2:00 PM CDT) Anatomical Region Laterality Modality Head Magnetic Resonan ce 07/06/2024 1:30 PM CDT Impressions 07/06/2024 10:08 PM CDT IMPRESSION: Compared to the prior MRI from 03/21/2024: 1.No significant change in the scan features compared to the prior. 2.No evidence of acute intracranial findings or abnormal enhancement. 3.No acute MRI findings are identified in the orbits. 4.The right transverse and sigmoid sinuses and the right internal jugular vein are dominant. The left transverse and sigmoid sinuses and the left internal jugular vein are nondominant and small in caliber. There is mild to moderate stenosis of the proximal and distal aspects of the nondominant left transverse sinus. 5.Considering the recent lumbar puncture demonstrating elevated intracranial hypertension, patient's symptoms, and the presence of low-lying cerebellar tonsils, and the presence of reduced caliber of the left transverse sinus with mild proximal and distal stenosis, the overall findings are concerning for idiopathic intracranial hypertension, (IIH). Clinical correlation is recommended. 6.No evidence of dural venous sinus thrombosis. > Interpreting Provider: Taj Ramos MD on 07/06/2024 10:08 PM Narrative 07/06/2024 10:08 PM CDT PROCEDURE: ??MRI BRAIN WWO CONTRAST, MRI ORBITS OR FACE WWO CONTRAST, MRI ANGIO BRAIN VENOUS WWO CONT, DATE/TIME OF EXAM: ??07/04/2024 1:56 PM, LOCATION [facility] INDICATION: H47.10: Papilledema ADDITIONAL CLINICAL INFORMATION: Ordering Provider Reason For Exam: ??Papilledema. Technologist Note: ??None. Additional: ??None. CONTRAST: ??GADOBUTROL 1 MMOL/ML IV SSM SO:10 mL EXAMINATION: 1.Magnetic resonance imaging (MRI) of the brain without and with contrast 2.MRI of the orbits without and with contrast 3.Magnetic resonance venography (MRV) of the head with contrast HISTORY: H47.10: Papilledema TECHNIQUE: 1.MRI of the brain was performed prior to and following the uneventful administration of 10 mL intravenous GADAVIST contrast according to standard protocol. 2.MRI of the orbits was performed prior to and following the uneventful administration of 10 mL intravenous GADAVIST contrast according to standard protocol. 3.MRV of the head was performed utilizing contrast enhanced time-resolved technique after the uneventful administration of 10 mL GADAVIST intravenous gadolinium contrast. COMPARISON: MRI of the brain, orbits, and MRV from 03/21/2024. FINDINGS: Brain: Small linear focus of susceptibility artifacts in the medial anterior right parietal region, (series 9, image 36), correlates with a small developmental venous anomaly, a normal variant. Otherwise, no evidence of acute or chronic hemorrhage is identified. No evidence of acute cerebral infarction is seen. The ventricles are of stable size, shape, and morphology. A tiny septum pellucidum is present. No mass effect or midline shift is seen. Trace periventricular white matter FLAIR hyperintensity is a nonspecific finding. A small developmental venous anomaly is noted in the medial anterior parasagittal right parietal lobe, a normal variant, grossly similar to the prior. There is a smaller developmental venous anomaly in the left cerebellar hemisphere posterior lateral aspect. No enhancing lesions are otherwise identified. The pituitary height measures approximately 5.4 mm, within normal limits. The corpus callosum and sella appear normal and stable compared to the prior. Borderline low-lying cerebellar tonsils approximately 2 mm below the level of the foramen magnum, resulting in mild crowding at the level of the foramen magnum, likely representing mild cerebellar ectopia, grossly unchanged from prior. The posterior fossa, brainstem, and craniocervical junction appear otherwise grossly unremarkable. The visualized portions of the mastoids appear normal. Normal flow voids are demonstrated in the carotid arteries and basilar artery. The calvarium and visualized cervical spine appear normal. Orbits: The globes and extraocular muscles appear normal. The lacrimal glands appear normal. Mildly dilated optic nerve sheaths. The optic nerves are symmetric in size and signal. No abnormal enhancement is identified in either optic nerve. The optic chiasm and suprasellar cistern appear normal. Meckel's cave and the cavernous sinuses appear normal. There is a mucous retention cyst in the left maxillary sinus, grossly similar to prior. There is a smaller mucous retention cyst in the right maxillary sinus, grossly similar or slightly decreased compared to prior. Trace mucosal thickening in the ethmoid air cells. Mild hypertrophy of the inferior turbinates, right more than left. There is a small small focus of T2 hyperintensity adjacent to the left middle turbinate, (series 12, image 5), and appears abutting the nasal septum and the inferior turbinate as well. Venographic findings: The right transverse and sigmoid sinuses and the right internal jugular vein are dominant. The left transverse and sigmoid sinuses and the left internal jugular vein are nondominant and small in caliber. There is mild to moderate stenosis of the proximal and distal aspects of the nondominant left transverse sinus. The dural sinuses appear otherwise grossly normal without evidence of thrombosis. The internal cerebral veins, veins of Joseph, and visible portions of the internal jugular veins appear otherwise grossly normal without evidence of thrombosis. Procedure Note Taj Ramos MD - 07/06/2024 PROCEDURE: MRI BRAIN WWO CONTRAST, MRI ORBITS OR FACE WWO CONTRAST, MRI ANGIO BRAIN VENOUS WWO CONT, DATE/TIME OF EXAM: 07/04/2024 1:56 PM,LOCATION [facility] INDICATION: H47.10: Papilledema ADDITIONAL CLINICAL INFORMATION: Ordering Provider Reason For Exam: Papilledema. Technologist Note: None. Additional: None. CONTRAST: GADOBUTROL 1 MMOL/ML IV SSM SO:10 mL EXAMINATION: 1.Magnetic resonance imaging (MRI) of the brain without and withcontrast 2.MRI of the orbits without and with contrast 3.Magnetic resonance venography (MRV) of the head with contrast HISTORY: H47.10: Papilledema TECHNIQUE: 1.MRI of the brain was performed prior to and following the uneventful administration of 10 mL intravenous GADAVIST contrast according tostandard protocol. 2.MRI of the orbits was performed prior to and following the uneventful administration of 10 mL intravenous GADAVIST contrast according tostandard protocol. 3.MRV of the head was performed utilizing contrast enhancedtime-resolved technique after the uneventful administration of 10 mL GADAVISTintravenous gadolinium contrast. COMPARISON: MRI of the brain, orbits, and MRV from 03/21/2024. FINDINGS: Brain: Small linear focus of susceptibility artifacts in the medial anteriorright parietal region, (series 9, image 36), correlates with a small developmental venous anomaly, a normal variant. Otherwise, no evidenceof acute or chronic hemorrhage is identified. No evidence of acute cerebral infarction is seen. The ventricles are of stable size, shape, and morphology. A tiny septum pellucidum is present. No mass effect ormidline shift is seen. Trace periventricular white matter FLAIR hyperintensity shaji nonspecific finding. A small developmental venous anomaly is noted inthe medial anterior parasagittal right parietal lobe, a normal variant,grossly similar to the prior. There is a smaller developmental venous anomaly in the left cerebellar hemisphere posterior lateral aspect. No enhancing lesions are otherwise identified. The pituitary height measures approximately 5.4 mm, within normal limits. The corpus callosum andsella appear normal and stable compared to the prior. Borderline low-lying cerebellar tonsils approximately 2 mm below the level of the foramen magnum, resulting in mild crowding at the level of the foramen magnum, likely representing mild cerebellar ectopia, grossly unchanged fromprior. The posterior fossa, brainstem, and craniocervical junction appear otherwise grossly unremarkable. The visualized portions of the mastoids appear normal. Normal flow voids are demonstrated in the carotid arteries and basilar artery. Thecalvarium and visualized cervical spine appear normal. Orbits: The globes and extraocular muscles appear normal. The lacrimal glands appear normal. Mildly dilated optic nerve sheaths. The optic nerves are symmetric in size and signal. No abnormal enhancement is identified in either optic nerve. The optic chiasm and suprasellar cistern appearnormal. Meckel's cave and the cavernous sinuses appear normal. There is a mucous retention cyst in the left maxillary sinus, grossly similar to prior. There is a smaller mucous retention cyst in the right maxillary sinus, grossly similar or slightly decreased compared toprior. Trace mucosal thickening in the ethmoid air cells. Mild hypertrophy ofthe inferior turbinates, right more than left. There is a small small focusof T2 hyperintensity adjacent to the left middle turbinate, (series 12,image 5), and appears abutting the nasal septum and the inferior turbinate as well. Venographic findings: The right transverse and sigmoid sinuses and the right internal jugular vein are dominant. The left transverse and sigmoid sinuses and the left internal jugular vein are nondominant and small in caliber. There ismild to moderate stenosis of the proximal and distal aspects of thenondominant left transverse sinus. The dural sinuses appear otherwise grossly normal without evidence of thrombosis. The internal cerebral veins, veins of Joseph, and visible portions of the internal jugular veins appearotherwise grossly normal without evidence of thrombosis. IMPRESSION: Compared to the prior MRI from 03/21/2024: 1.No significant change in the scan features compared to the prior. 2.No evidence of acute intracranial findings or abnormal enhancement. 3.No acute MRI findings are identified in the orbits. 4.The right transverse and sigmoid sinuses and the right internaljugular vein are dominant. The left transverse and sigmoid sinuses and the left internal jugular vein are nondominant and small in caliber. There ismild to moderate stenosis of the proximal and distal aspects of thenondominant left transverse sinus. 5.Considering the recent lumbar puncture demonstrating elevated intracranial hypertension, patient's symptoms, and the presence of low-lying cerebellar tonsils, and the presence of reduced caliber of the left transverse sinus with mild proximal and distal stenosis, theoverall findings are concerning for idiopathic intracranial hypertension, (IIH). Clinical correlation is recommended. 6.No evidence of dural venous sinus thrombosis. > Interpreting Provider: Taj Ramos MD on 07/06/2024 10:08 PM Pieter Knott MD MR ORDERABLES * MRI BRAIN WWO CONTRAST (07/04/2024 1:55 PM CDT) Only the most recent of2 resultswithin the time period is included. Anatomical Region Laterality Modality Head Magnetic Resonan ce 07/06/2024 1:30 PM CDT Impressions 07/06/2024 10:08 PM CDT IMPRESSION: Compared to the prior MRI from 03/21/2024: 1.No significant change in the scan features compared to the prior. 2.No evidence of acute intracranial findings or abnormal enhancement. 3.No acute MRI findings are identified in the orbits. 4.The right transverse and sigmoid sinuses and the right internal jugular vein are dominant. The left transverse and sigmoid sinuses and the left internal jugular vein are nondominant and small in caliber. There is mild to moderate stenosis of the proximal and distal aspects of the nondominant left transverse sinus. 5.Considering the recent lumbar puncture demonstrating elevated intracranial hypertension, patient's symptoms, and the presence of low-lying cerebellar tonsils, and the presence of reduced caliber of the left transverse sinus with mild proximal and distal stenosis, the overall findings are concerning for idiopathic intracranial hypertension, (IIH). Clinical correlation is recommended. 6.No evidence of dural venous sinus thrombosis. > Interpreting Provider: Taj Ramos MD on 07/06/2024 10:08 PM Narrative 07/06/2024 10:08 PM CDT PROCEDURE: ??MRI BRAIN WWO CONTRAST, MRI ORBITS OR FACE WWO CONTRAST, MRI ANGIO BRAIN VENOUS WWO CONT, DATE/TIME OF EXAM: ??07/04/2024 1:56 PM, LOCATION [facility] INDICATION: H47.10: Papilledema ADDITIONAL CLINICAL INFORMATION: Ordering Provider Reason For Exam: ??Papilledema. Technologist Note: ??None. Additional: ??None. CONTRAST: ??GADOBUTROL 1 MMOL/ML IV SSM SO:10 mL EXAMINATION: 1.Magnetic resonance imaging (MRI) of the brain without and with contrast 2.MRI of the orbits without and with contrast 3.Magnetic resonance venography (MRV) of the head with contrast HISTORY: H47.10: Papilledema TECHNIQUE: 1.MRI of the brain was performed prior to and following the uneventful administration of 10 mL intravenous GADAVIST contrast according to standard protocol. 2.MRI of the orbits was performed prior to and following the uneventful administration of 10 mL intravenous GADAVIST contrast according to standard protocol. 3.MRV of the head was performed utilizing contrast enhanced time-resolved technique after the uneventful administration of 10 mL GADAVIST intravenous gadolinium contrast. COMPARISON: MRI of the brain, orbits, and MRV from 03/21/2024. FINDINGS: Brain: Small linear focus of susceptibility artifacts in the medial anterior right parietal region, (series 9, image 36), correlates with a small developmental venous anomaly, a normal variant. Otherwise, no evidence of acute or chronic hemorrhage is identified. No evidence of acute cerebral infarction is seen. The ventricles are of stable size, shape, and morphology. A tiny septum pellucidum is present. No mass effect or midline shift is seen. Trace periventricular white matter FLAIR hyperintensity is a nonspecific finding. A small developmental venous anomaly is noted in the medial anterior parasagittal right parietal lobe, a normal variant, grossly similar to the prior. There is a smaller developmental venous anomaly in the left cerebellar hemisphere posterior lateral aspect. No enhancing lesions are otherwise identified. The pituitary height measures approximately 5.4 mm, within normal limits. The corpus callosum and sella appear normal and stable compared to the prior. Borderline low-lying cerebellar tonsils approximately 2 mm below the level of the foramen magnum, resulting in mild crowding at the level of the foramen magnum, likely representing mild cerebellar ectopia, grossly unchanged from prior. The posterior fossa, brainstem, and craniocervical junction appear otherwise grossly unremarkable. The visualized portions of the mastoids appear normal. Normal flow voids are demonstrated in the carotid arteries and basilar artery. The calvarium and visualized cervical spine appear normal. Orbits: The globes and extraocular muscles appear normal. The lacrimal glands appear normal. Mildly dilated optic nerve sheaths. The optic nerves are symmetric in size and signal. No abnormal enhancement is identified in either optic nerve. The optic chiasm and suprasellar cistern appear normal. Meckel's cave and the cavernous sinuses appear normal. There is a mucous retention cyst in the left maxillary sinus, grossly similar to prior. There is a smaller mucous retention cyst in the right maxillary sinus, grossly similar or slightly decreased compared to prior. Trace mucosal thickening in the ethmoid air cells. Mild hypertrophy of the inferior turbinates, right more than left. There is a small small focus of T2 hyperintensity adjacent to the left middle turbinate, (series 12, image 5), and appears abutting the nasal septum and the inferior turbinate as well. Venographic findings: The right transverse and sigmoid sinuses and the right internal jugular vein are dominant. The left transverse and sigmoid sinuses and the left internal jugular vein are nondominant and small in caliber. There is mild to moderate stenosis of the proximal and distal aspects of the nondominant left transverse sinus. The dural sinuses appear otherwise grossly normal without evidence of thrombosis. The internal cerebral veins, veins of Joseph, and visible portions of the internal jugular veins appear otherwise grossly normal without evidence of thrombosis. Procedure Note Taj Ramos MD - 07/06/2024 PROCEDURE: MRI BRAIN WWO CONTRAST, MRI ORBITS OR FACE WWO CONTRAST, MRI ANGIO BRAIN VENOUS WWO CONT, DATE/TIME OF EXAM: 07/04/2024 1:56 PM,[facility]ATION [facility] [facility] INDICATION: H47.10: Papilledema ADDITIONAL CLINICAL INFORMATION: Ordering Provider Reason For Exam: Papilledema. Technologist Note: None. Additional: None. CONTRAST: GADOBUTROL 1 MMOL/ML IV SSM SO:10 mL EXAMINATION: 1.Magnetic resonance imaging (MRI) of the brain without and withcontrast 2.MRI of the orbits without and with contrast 3.Magnetic resonance venography (MRV) of the head with contrast HISTORY: H47.10: Papilledema TECHNIQUE: 1.MRI of the brain was performed prior to and following the uneventful administration of 10 mL intravenous GADAVIST contrast according tostandard protocol. 2.MRI of the orbits was performed prior to and following the uneventful administration of 10 mL intravenous GADAVIST contrast according tostandard protocol. 3.MRV of the head was performed utilizing contrast enhancedtime-resolved technique after the uneventful administration of 10 mL GADAVISTintravenous gadolinium contrast. COMPARISON: MRI of the brain, orbits, and MRV from 03/21/2024. FINDINGS: Brain: Small linear focus of susceptibility artifacts in the medial anteriorright parietal region, (series 9, image 36), correlates with a small developmental venous anomaly, a normal variant. Otherwise, no evidenceof acute or chronic hemorrhage is identified. No evidence of acute cerebral infarction is seen. The ventricles are of stable size, shape, and morphology. A tiny septum pellucidum is present. No mass effect ormidline shift is seen. Trace periventricular white matter FLAIR hyperintensity shaji nonspecific finding. A small developmental venous anomaly is noted inthe medial anterior parasagittal right parietal lobe, a normal variant,grossly similar to the prior. There is a smaller developmental venous anomaly in the left cerebellar hemisphere posterior lateral aspect. No enhancing lesions are otherwise identified. The pituitary height measures approximately 5.4 mm, within normal limits. The corpus callosum andsella appear normal and stable compared to the prior. Borderline low-lying cerebellar tonsils approximately 2 mm below the level of the foramen magnum, resulting in mild crowding at the level of the foramen magnum, likely representing mild cerebellar ectopia, grossly unchanged fromprior. The posterior fossa, brainstem, and craniocervical junction appear otherwise grossly unremarkable. The visualized portions of the mastoids appear normal. Normal flow voids are demonstrated in the carotid arteries and basilar artery. Thecalvarium and visualized cervical spine appear normal. Orbits: The globes and extraocular muscles appear normal. The lacrimal glands appear normal. Mildly dilated optic nerve sheaths. The optic nerves are symmetric in size and signal. No abnormal enhancement is identified in either optic nerve. The optic chiasm and suprasellar cistern appearnormal. Meckel's cave and the cavernous sinuses appear normal. There is a mucous retention cyst in the left maxillary sinus, grossly similar to prior. There is a smaller mucous retention cyst in the right maxillary sinus, grossly similar or slightly decreased compared toprior. Trace mucosal thickening in the ethmoid air cells. Mild hypertrophy ofthe inferior turbinates, right more than left. There is a small small focusof T2 hyperintensity adjacent to the left middle turbinate, (series 12,image 5), and appears abutting the nasal septum and the inferior turbinate as well. Venographic findings: The right transverse and sigmoid sinuses and the right internal jugular vein are dominant. The left transverse and sigmoid sinuses and the left internal jugular vein are nondominant and small in caliber. There ismild to moderate stenosis of the proximal and distal aspects of thenondominant left transverse sinus. The dural sinuses appear otherwise grossly normal without evidence of thrombosis. The internal cerebral veins, veins of Joseph, and visible portions of the internal jugular veins appearotherwise grossly normal without evidence of thrombosis. IMPRESSION: Compared to the prior MRI from 03/21/2024: 1.No significant change in the scan features compared to the prior. 2.No evidence of acute intracranial findings or abnormal enhancement. 3.No acute MRI findings are identified in the orbits. 4.The right transverse and sigmoid sinuses and the right internaljugular vein are dominant. The left transverse and sigmoid sinuses and the left internal jugular vein are nondominant and small in caliber. There ismild to moderate stenosis of the proximal and distal aspects of thenondominant left transverse sinus. 5.Considering the recent lumbar puncture demonstrating elevated intracranial hypertension, patient's symptoms, and the presence of low-lying cerebellar tonsils, and the presence of reduced caliber of the left transverse sinus with mild proximal and distal stenosis, theoverall findings are concerning for idiopathic intracranial hypertension, (IIH). Clinical correlation is recommended. 6.No evidence of dural venous sinus thrombosis. > Interpreting Provider: Taj Ramos MD on 07/06/2024 10:08 PM Pieter Knott MD MR ORDERABLES * MRI ORBITS OR FACE WWO CONTRAST (07/04/2024 1:54 PM CDT) Only the most recent of2 resultswithin the time period is included. Anatomical Region Laterality Modality Head Magnetic Resonan ce 07/06/2024 1:30 PM CDT Impressions 07/06/2024 10:08 PM CDT IMPRESSION: Compared to the prior MRI from 03/21/2024: 1.No significant change in the scan features compared to the prior. 2.No evidence of acute intracranial findings or abnormal enhancement. 3.No acute MRI findings are identified in the orbits. 4.The right transverse and sigmoid sinuses and the right internal jugular vein are dominant. The left transverse and sigmoid sinuses and the left internal jugular vein are nondominant and small in caliber. There is mild to moderate stenosis of the proximal and distal aspects of the nondominant left transverse sinus. 5.Considering the recent lumbar puncture demonstrating elevated intracranial hypertension, patient's symptoms, and the presence of low-lying cerebellar tonsils, and the presence of reduced caliber of the left transverse sinus with mild proximal and distal stenosis, the overall findings are concerning for idiopathic intracranial hypertension, (IIH). Clinical correlation is recommended. 6.No evidence of dural venous sinus thrombosis. > Interpreting Provider: Taj Ramos MD on 07/06/2024 10:08 PM Narrative 07/06/2024 10:08 PM CDT PROCEDURE: ??MRI BRAIN WWO CONTRAST, MRI ORBITS OR FACE WWO CONTRAST, MRI ANGIO BRAIN VENOUS WWO CONT, DATE/TIME OF EXAM: ??07/04/2024 1:56 PM, LOCATION [facility] INDICATION: H47.10: Papilledema ADDITIONAL CLINICAL INFORMATION: Ordering Provider Reason For Exam: ??Papilledema. Technologist Note: ??None. Additional: ??None. CONTRAST: ??GADOBUTROL 1 MMOL/ML IV SSM SO:10 mL EXAMINATION: 1.Magnetic resonance imaging (MRI) of the brain without and with contrast 2.MRI of the orbits without and with contrast 3.Magnetic resonance venography (MRV) of the head with contrast HISTORY: H47.10: Papilledema TECHNIQUE: 1.MRI of the brain was performed prior to and following the uneventful administration of 10 mL intravenous GADAVIST contrast according to standard protocol. 2.MRI of the orbits was performed prior to and following the uneventful administration of 10 mL intravenous GADAVIST contrast according to standard protocol. 3.MRV of the head was performed utilizing contrast enhanced time-resolved technique after the uneventful administration of 10 mL GADAVIST intravenous gadolinium contrast. COMPARISON: MRI of the brain, orbits, and MRV from 03/21/2024. FINDINGS: Brain: Small linear focus of susceptibility artifacts in the medial anterior right parietal region, (series 9, image 36), correlates with a small developmental venous anomaly, a normal variant. Otherwise, no evidence of acute or chronic hemorrhage is identified. No evidence of acute cerebral infarction is seen. The ventricles are of stable size, shape, and morphology. A tiny septum pellucidum is present. No mass effect or midline shift is seen. Trace periventricular white matter FLAIR hyperintensity is a nonspecific finding. A small developmental venous anomaly is noted in the medial anterior parasagittal right parietal lobe, a normal variant, grossly similar to the prior. There is a smaller developmental venous anomaly in the left cerebellar hemisphere posterior lateral aspect. No enhancing lesions are otherwise identified. The pituitary height measures approximately 5.4 mm, within normal limits. The corpus callosum and sella appear normal and stable compared to the prior. Borderline low-lying cerebellar tonsils approximately 2 mm below the level of the foramen magnum, resulting in mild crowding at the level of the foramen magnum, likely representing mild cerebellar ectopia, grossly unchanged from prior. The posterior fossa, brainstem, and craniocervical junction appear otherwise grossly unremarkable. The visualized portions of the mastoids appear normal. Normal flow voids are demonstrated in the carotid arteries and basilar artery. The calvarium and visualized cervical spine appear normal. Orbits: The globes and extraocular muscles appear normal. The lacrimal glands appear normal. Mildly dilated optic nerve sheaths. The optic nerves are symmetric in size and signal. No abnormal enhancement is identified in either optic nerve. The optic chiasm and suprasellar cistern appear normal. Meckel's cave and the cavernous sinuses appear normal. There is a mucous retention cyst in the left maxillary sinus, grossly similar to prior. There is a smaller mucous retention cyst in the right maxillary sinus, grossly similar or slightly decreased compared to prior. Trace mucosal thickening in the ethmoid air cells. Mild hypertrophy of the inferior turbinates, right more than left. There is a small small focus of T2 hyperintensity adjacent to the left middle turbinate, (series 12, image 5), and appears abutting the nasal septum and the inferior turbinate as well. Venographic findings: The right transverse and sigmoid sinuses and the right internal jugular vein are dominant. The left transverse and sigmoid sinuses and the left internal jugular vein are nondominant and small in caliber. There is mild to moderate stenosis of the proximal and distal aspects of the nondominant left transverse sinus. The dural sinuses appear otherwise grossly normal without evidence of thrombosis. The internal cerebral veins, veins of Joseph, and visible portions of the internal jugular veins appear otherwise grossly normal without evidence of thrombosis. Procedure Note Taj Ramos MD - 07/06/2024 PROCEDURE: MRI BRAIN WWO CONTRAST, MRI ORBITS OR FACE WWO CONTRAST, MRI ANGIO BRAIN VENOUS WWO CONT, DATE/TIME OF EXAM: 07/04/2024 1:56 PM,LOCATION [facility] INDICATION: H47.10: Papilledema ADDITIONAL CLINICAL INFORMATION: Ordering Provider Reason For Exam: Papilledema. Technologist Note: None. Additional: None. CONTRAST: GADOBUTROL 1 MMOL/ML IV SSM SO:10 mL EXAMINATION: 1.Magnetic resonance imaging (MRI) of the brain without and withcontrast 2.MRI of the orbits without and with contrast 3.Magnetic resonance venography (MRV) of the head with contrast HISTORY: H47.10: Papilledema TECHNIQUE: 1.MRI of the brain was performed prior to and following the uneventful administration of 10 mL intravenous GADAVIST contrast according tostandard protocol. 2.MRI of the orbits was performed prior to and following the uneventful administration of 10 mL intravenous GADAVIST contrast according tostandard protocol. 3.MRV of the head was performed utilizing contrast enhancedtime-resolved technique after the uneventful administration of 10 mL GADAVISTintravenous gadolinium contrast. COMPARISON: MRI of the brain, orbits, and MRV from 03/21/2024. FINDINGS: Brain: Small linear focus of susceptibility artifacts in the medial anteriorright parietal region, (series 9, image 36), correlates with a small developmental venous anomaly, a normal variant. Otherwise, no evidenceof acute or chronic hemorrhage is identified. No evidence of acute cerebral infarction is seen. The ventricles are of stable size, shape, and morphology. A tiny septum pellucidum is present. No mass effect ormidline shift is seen. Trace periventricular white matter FLAIR hyperintensity shaji nonspecific finding. A small developmental venous anomaly is noted inthe medial anterior parasagittal right parietal lobe, a normal variant,grossly similar to the prior. There is a smaller developmental venous anomaly in the left cerebellar hemisphere posterior lateral aspect. No enhancing lesions are otherwise identified. The pituitary height measures approximately 5.4 mm, within normal limits. The corpus callosum andsella appear normal and stable compared to the prior. Borderline low-lying cerebellar tonsils approximately 2 mm below the level of the foramen magnum, resulting in mild crowding at the level of the foramen magnum, likely representing mild cerebellar ectopia, grossly unchanged fromprior. The posterior fossa, brainstem, and craniocervical junction appear otherwise grossly unremarkable. The visualized portions of the mastoids appear normal. Normal flow voids are demonstrated in the carotid arteries and basilar artery. Thecalvarium and visualized cervical spine appear normal. Orbits: The globes and extraocular muscles appear normal. The lacrimal glands appear normal. Mildly dilated optic nerve sheaths. The optic nerves are symmetric in size and signal. No abnormal enhancement is identified in either optic nerve. The optic chiasm and suprasellar cistern appearnormal. Meckel's cave and the cavernous sinuses appear normal. There is a mucous retention cyst in the left maxillary sinus, grossly similar to prior. There is a smaller mucous retention cyst in the right maxillary sinus, grossly similar or slightly decreased compared toprior. Trace mucosal thickening in the ethmoid air cells. Mild hypertrophy ofthe inferior turbinates, right more than left. There is a small small focusof T2 hyperintensity adjacent to the left middle turbinate, (series 12,image 5), and appears abutting the nasal septum and the inferior turbinate as well. Venographic findings: The right transverse and sigmoid sinuses and the right internal jugular vein are dominant. The left transverse and sigmoid sinuses and the left internal jugular vein are nondominant and small in caliber. There ismild to moderate stenosis of the proximal and distal aspects of thenondominant left transverse sinus. The dural sinuses appear otherwise grossly normal without evidence of thrombosis. The internal cerebral veins, veins of Joseph, and visible portions of the internal jugular veins appearotherwise grossly normal without evidence of thrombosis. IMPRESSION: Compared to the prior MRI from 03/21/2024: 1.No significant change in the scan features compared to the prior. 2.No evidence of acute intracranial findings or abnormal enhancement. 3.No acute MRI findings are identified in the orbits. 4.The right transverse and sigmoid sinuses and the right internaljugular vein are dominant. The left transverse and sigmoid sinuses and the left internal jugular vein are nondominant and small in caliber. There ismild to moderate stenosis of the proximal and distal aspects of thenondominant left transverse sinus. 5.Considering the recent lumbar puncture demonstrating elevated intracranial hypertension, patient's symptoms, and the presence of low-lying cerebellar tonsils, and the presence of reduced caliber of the left transverse sinus with mild proximal and distal stenosis, theoverall findings are concerning for idiopathic intracranial hypertension, (IIH). Clinical correlation is recommended. 6.No evidence of dural venous sinus thrombosis. > Interpreting Provider: Taj Ramos MD on 07/06/2024 10:08 PM Pieter Knott MD MR ORDERABLES * CREATININE - POCT INTERFACED (07/04/2024 12:31 PM CDT) Only the most recent of2 resultswithin the time period is included. [facility] Creatinine POCT 0.58 0.30 - 1.30 mg/dL 07/04/2024 12:58 PM [facility] Comment:Range ok for MRI eGFR >90 >=90 mL/min/1.7 3 m2 07/04/2024 12:58 PM [facility] Blood BLOOD SPECIMEN / Unknown 07/04/2024 12:31 PM CDT 07/04/2024 12:58 PM CDT Pieter Knott MD LAB - POINT OF CARE ORDERABLES Performing Organization Address City/State/[facility] Co de Phone Number [facility] [address] [place] [address], [facility] [phone] * (ABNORMAL) CBC W AUTO DIFFERENTIAL (05/26/2024 7:23 AM CDT) [facility] WBC 7.7 4.0 - 10.7 x10E9/L 05/26/2024 7:39 AM [facility] RBC Count 4.88 3.90 - 5.20 x10E12/L 05/26/2024 7:39 AM [facility] Hemoglobin 12.6 11.9 - 15.8 g/dL 05/26/2024 7:39 AM [facility] Hematocrit 39.0 34.8 - 46.1 % 05/26/2024 7:39 AM [facility] MCV 79.9(L) 80.0 - 98.0 fL 05/26/2024 7:39 AM [facility] MCH 25.8(L) 26.7 - 33.6 pg 05/26/2024 7:39 AM [facility] MCHC 32.3 31.7 - 36.3 g/dL 05/26/2024 7:39 AM [facility] RDW-CV 14.6 11.3 - 14.8 % 05/26/2024 7:39 AM [facility] Platelet Count 233 150 - 420 x10E9/L 05/26/2024 7:39 AM [facility] MPV 9.3 7.8 - 11.4 fL 05/26/2024 7:39 AM [facility] Neutrophil % 59.2 41.0 - 74.0 % 05/26/2024 7:39 AM [facility] Lymphocyte % 30.7 17.0 - 47.0 % 05/26/2024 7:39 AM [facility] Monocyte % 7.6 3.0 - 11.0 % 05/26/2024 7:39 AM [facility] Eosinophil % 1.7 0.0 - 7.0 % 05/26/2024 7:39 AM [facility] Basophil % 0.7 0.0 - 1.6 % 05/26/2024 7:39 AM [facility] Immature Granulocytes % 0.1 0.0 - 1.0 % 05/26/2024 7:39 AM [facility] Neutrophil Absolute 4.55 1.60 - 7.50 x10E9/L 05/26/2024 7:39 AM [facility] Lymphocyte Absolute 2.36 1.00 - 4.40 x10E9/L 05/26/2024 7:39 AM [facility] Monocyte Absolute 0.58 0.15 - 1.00 x10E9/L 05/26/2024 7:39 AM [facility] Eosinophil Absolute 0.13 0.00 - 0.60 x10E9/L 05/26/2024 7:39 AM [facility] Basophil Absolute 0.05 0.00 - 0.13 x10E9/L 05/26/2024 7:39 AM [facility] Blood BLOOD SPECIMEN / Unknown Venipuncture / Unknown 05/26/2024 7:23 AM T 05/26/2024 7:29 AM [facility] Jasper Jade MD LAB - HEMATOLOGY ORD ERABLES [facility] [address] [place] [address], [facility] [phone] * (ABNORMAL) COMPREHENSIVE METABOLIC PANEL (05/26/2024 7:23 AM [facility]) BUN 13 7 - 26 mg/dL 05/26/2024 7:56 AM [facility] Creatinine 0.97(H) 0.56 - 0.96 mg/dL 05/26/2024 7:56 AM [facility] Sodium 137 136 - 145 mmol/L 05/26/2024 7:56 AM [facility] Potassium 3.9 3.5 - 4.5 mmol/L 05/26/2024 7:56 AM [facility] Chloride 106 98 - 107 mmol/L 05/26/2024 7:56 AM [facility] CO2 27 22 - 29 mmol/L 05/26/2024 7:56 AM [facility] Glucose 96 70 - 115 mg/dL 05/26/2024 7:56 AM [facility] Calcium 8.6 8.4 - 10.2 mg/dL 05/26/2024 7:56 AM [facility] Protein Total 7.0 6.0 - 8.3 g/dL 05/26/2024 7:56 AM [facility] Albumin 3.9 3.4 - 5.0 g/dL 05/26/2024 7:56 AM [facility] Bilirubin Total 0.5 0.2 - 1.2 mg/dL 05/26/2024 7:56 AM [facility] Alkaline Phosphatase 43 40 - 150 U/L 05/26/2024 7:56 AM [facility] ALT 24 5 - 55 U/L 05/26/2024 7:56 AM [facility] AST 23 5 - 34 U/L 05/26/2024 7:56 AM [facility] Anion Gap 4(L) 6 - 16 05/26/2024 7:56 AM [facility] BUN/Creatinine Ratio 13 7 - 23 05/26/2024 7:56 AM [facility] Osmolality Calculated 284 275 - 295 mOsm/kg 05/26/2024 7:56 AM [facility] Albumin/Globulin Ratio 1.3 1.1 - 2.3 05/26/2024 7:56 AM CDT [facility] eGFR by CKD-EPI 82(L) >=90 mL/min/1.7 3 m2 05/26/2024 7:56 AM CDT [facility] Blood BLOOD SPECIMEN / Unknown Venipuncture / Unknown 05/26/2024 7:23 AM CDT 05/26/2024 7:29 AM CDT Jasper Jade MD LAB - CHEMISTRY GLORIA VEGA Performing Organization Address City/[facility]/ZIP Co de Phone Number [address] [address], [facility] [phone] * (ABNORMAL) CELL COUNT W DIFFERENTIAL CSF (05/22/2024 12:54 PM CDT) Tube Number [id number] 05/22/2024 1:24 PM CDT [facility] Xanthochromia ABSENT ABSENT 05/22/2024 1:24 PM CDT [facility] CSF Appearance CLEAR 05/22/2024 1:24 PM CDT [facility] CSF Color COLORLESS 05/22/2024 1:24 PM CDT [facility] Total Nucleated Cells CSF 3 <=5 x10E6/L 05/22/2024 1:24 PM CDT [facility] Comment:No differential perf ormed per procedure RBC Count CSF 52(H) <1 x10E6/L 05/22/2024 1:24 PM CDT [facility] Cerebral spinal fluid CEREBROSPINAL FLUID SPECIMEN / Unknown Collection / Unknown 05/22/2024 12:54 PM CDT 05/22/2024 1:03 PM CDT Pieter Knott MD LAB - BODY FLUID ORD ZENA [address] [address], [place] [phone] * PROTEIN CSF (05/22/2024 12:54 PM CDT) Protein CSF 17 15 - 45 mg/dL 05/22/2024 5:41 PM CDT [facility] Cerebral spinal fluid CEREBROSPINAL FLUID SPECIMEN / Unknown Collection / Unknown 05/22/2024 12:54 PM CDT 05/22/2024 1:03 PM CDT Pieter Knott MD LAB - BODY FLUID ORD ERABLES Performing Organization Address City/[facility]/ZIP Co de Phone Number [address] [address], [facility] [phone] * GLUCOSE CSF (05/22/2024 12:54 PM CDT) Glucose CSF 48 40 - 70 mg/dL 05/22/2024 1:29 PM CDT [facility] Cerebral spinal fluid CEREBROSPINAL FLUID SPECIMEN / Unknown Collection / Unknown 05/22/2024 12:54 PM CDT 05/22/2024 1:03 PM CDT Pieter Knott MD LAB - BODY FLUID ORD ERABLES Performing Organization Address City/[facility]/ZIP Co de Phone Number [address] [address], [facility] [phone] * FL LUMBAR PUNCTURE (05/22/2024 12:43 PM CDT) Anatomical Region Laterality Modality Spine Radiographic Radha ging 05/22/2024 1:10 PM CDT Impressions 05/22/2024 2:52 PM CDT IMPRESSION: 1. Successful lumbar puncture under fluoroscopic guidance at L4-5. The report is dictated by Estevan Herndon MD, (family medicine resident) IDaysi MD have personally reviewed and interpreted this examination/study. > Interpreting Provider: Daysi El MD on 05/22/2024 2:52 PM Narrative 05/22/2024 2:52 PM CDT PROCEDURE: ??FL LUMBAR PUNCTURE, DATE/TIME OF EXAM: ??05/22/2024 12:56 PM, LOCATION ??[facility] INDICATION: H47.10: Papilledema EXAMINATION: Diagnostic lumbar puncture (LP) under fluoroscopic guidance TECHNIQUE: ??The risks and benefits of the lumbar puncture including, but not limited to, infection, bleeding, seizure, epidural hematoma, post spinal headache, cerebrospinal fluid (CSF) leak requiring blood patch procedure, nausea, vomiting, irritation or damage to nerves causing pain or permanent injury ??were discussed with the patient. After alternatives were discussed and the opportunity to ask questions was provided, the patient acknowledged understanding, gave verbal and written consent, and wished to proceed. Attending physician: Dr. El was present for the kellogg portions of this procedure. The L4-5 level was localized with fluoroscopy. The skin overlying this level was then sterilely prepped, draped, and infiltrated with 1% lidocaine for local anesthesia. Under intermittent fluoroscopic guidance, a 20 gauge 3.5 inch spinal needle was inserted into the thecal sac at this level. Clear CSF was identified. A total of 15 ml of CSF was removed and placed into 4 specimen tubes. The patient tolerated the procedure well. The patient was then transferred to the [facility] advisor unit for further observation and 2 hrs of bedrest. OPENING PRESSURE: Prone position: [id number]; Left lateral decubitus position: [id number]. FLUOROSCOPY TIME: 53.6 Procedure Note Daysi El MD - 05/22/2024 PROCEDURE: FL LUMBAR PUNCTURE, DATE/TIME OF EXAM: 05/22/2024 12:56 PM, LOCATION [facility] INDICATION: H47.10: Papilledema EXAMINATION: Diagnostic lumbar puncture (LP) under fluoroscopic guidance TECHNIQUE: The risks and benefits of the lumbar puncture including, but not limited to, infection, bleeding, seizure, epidural hematoma, post spinal headache, cerebrospinal fluid (CSF) leak requiring blood patch procedure, nausea, vomiting, irritation or damage to nerves causing painor permanent injury were discussed with the patient. After alternativeswere discussed and the opportunity to ask questions was provided, the patient acknowledged understanding, gave verbal and written consent, and wishedto proceed. Attending physician: Dr. El was present for the kellogg portions of this procedure. The L4-5 level was localized with fluoroscopy. The skin overlying this level was then sterilely prepped, draped, and infiltrated with 1%lidocaine for local anesthesia. Under intermittent fluoroscopic guidance, a 20gauge 3.5 inch spinal needle was inserted into the thecal sac at this level. Clear CSF was identified. A total of 15 ml of CSF was removed and placed into 4 specimen tubes. The patient tolerated the procedure well. The patient was then transferred to the career center advisor unit for further observation and 2 hrs of bedrest. OPENING PRESSURE: Prone position: [id number]; Left lateral decubitusposition: [id number]. FLUOROSCOPY TIME: 53.6 IMPRESSION: 1. Successful lumbar puncture under fluoroscopic guidance at L4-5. The report is dictated by Estevan Herndon MD, (family medicine resident) I, Daysi El MD have personally reviewed and interpreted this examination/study. > Interpreting Provider: Daysi El MD on 05/22/2024 2:52 PM Pieter Knott MD FLUOROSCOPY ORDERABL ES * HCG URINE QUALITATIVE - POCT (IP) INTERFACED (05/22/2024 10:31 AM CDT) HCG Qual Urine Negative Negative 05/22/2024 10:38 AM CDT [facility] Urine URINE / Unknown 05/22/2024 1 0:31 AM CDT 05/22/2024 10:38 AM CDT Pieter Knott MD LAB - POINT OF CARE ORDERABLES [address] [address], [place] [phone] * HCG URINE QUAL POCT NOTIFICATION (05/22/2024 10:24 AM CDT) Comment Notification Label Only - See Separate Report 05/22/2024 11:31 AM CDT [facility] Urine URINE / Unknown 05/22/2024 1 0:24 AM CDT 05/22/2024 10:28 AM CDT Pieter Knott MD LAB - URINALYSIS ORD ERABLES Performing Organization Address City/[facility]/ZIP Co de Phone Number [address] [address], [place] [phone] * PROPHYLAXIS RETINA DETACH PHOTOCOAG OS (05/15/2024 12:58 PM CDT) Anatomical Region Laterality Modality Head Other Narrative 05/15/2024 12:58 PM CDT Table formatting from the original result was not included. [facility] Ophthalmology Procedure Note 05/14/2024 Patient: Yovana White Age: [age] year old Date of : 1995 Retinal Laser Note: PREPROCEDURE DIAGNOSIS: Retinal hole without detachment, left eye POSTPROCEDURE DIAGNOSIS: same RESIDENT: ??None PROCEDURE PERFORMED: Laser retinopexy, left eye ANESTHESIA: Topical drops eye (Proparacaine) COMPLICATIONS: None. ESTIMATED BLOOD LOSS: None PROCEDURE IN DETAIL: Prior to retinopexy, risks, benefits, and alternatives discussed including progression of current situation to full blown RD, inadvertent laser to the macula, epiretinal membrane, anterior segment dwyer, new retinal break formation, need for further procedures. Informed consent was obtained and the surgical permission form was signed and witnessed. ??Timeout was performed and site was confirmed. Using Slit lamp laser was administered to the periphery of the retina using the following specifications: Lens : Retina 180 lens Spot size 200 Time: 80 msec Power: 140 mW Interval: 0.2 msec Total number of shots: 321 The hole was surrounded 360 by three rows of laser. Patient tolerated the procedure well. There was no complications. Postop instructions given. I personally performed the whole ??procedure for the patient. Sarah Perez MD Attending, Retina Service Date of service 05/14/2024 Sarah Perez MD OPHTHALMOLOGY SER VICES ORDERABLES * PROPHYLAXIS RETINA DETACH PHOTOCOAG OD (05/07/2024 5:16 PM CDT) Anatomical Region Laterality Modality Head Other Narrative 05/07/2024 5:16 PM CDT Table formatting from the original result was not included. 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 ESTIMATED BLOOD LOSS: None PROCEDURE IN DETAIL: Prior to retinopexy, risks, benefits, and alternatives discussed including progression of current situation to full blown RD, inadvertent laser to the macula, epiretinal membrane, anterior segment dwyer, new retinal break formation, need for further procedures. Informed consent was obtained and the surgical permission form was signed and witnessed. ??Timeout was performed and site was confirmed. Using Slit lamp laser was administered to the periphery of the retina using the following specifications: Lens : Retina 200 lens Spot size 200 Time: 80 msec Power: 140mW Interval: 0.2 msec Total number of shots: 630 Patient tolerated the procedure well. There was no complications. Postop instructions given. I personally performed the whole ??procedure for the patient. Sarah Perez MD Attending, Retina service Date of service 05/07/2024 Sarah Perez MD OPHTHALMOLOGY SER VICES ORDERABLES * RETINAL ANALYSIS OCT (05/07/2024 2:20 PM CDT) Anatomical Region Laterality Modality Head External-Camera Photography Narrative 05/07/2024 2:48 PM CDT Images from the original result were not included. OD: Normal contour OS: Normal contour Sarah Perez MD OPHTHALMOLOGY PIA ED ORD W PACS * MRI ANGIO BRAIN ARTERIAL WO CONT (03/21/2024 5:03 PM CDT) Anatomical Region Laterality Modality Head Magnetic Resonan ce 03/23/2024 11:1 9 PM CDT Impressions 03/24/2024 8:37 AM CDT IMPRESSION: 1.No evidence of acute intracranial findings or abnormal enhancement. 2.Fundus examination is recommended to exclude the possibility of papilledema. 3.Otherwise, no acute MRI findings are identified in the orbits.. 4.There is a 2 mm lateral outpouching at the cavernous segment of the left internal carotid artery, concerning for small aneurysm. 5.Otherwise, normal large arterial occlusions or hemodynamically significant stenoses identified in the head. > Interpreting Provider: Taj Ramos MD on 03/24/2024 8:37 AM Narrative 03/24/2024 8:37 AM CDT PROCEDURE: ??MRI BRAIN WWO CONTRAST, MRI ORBITS OR FACE WWO CONTRAST, MRI ANGIO BRAIN ARTERIAL WO CONT, DATE/TIME OF EXAM: ??03/21/2024 5:22 PM, LOCATION ??[facility] INDICATION: G50.0: Trigeminal neuralgia G44.59: Other complicated headache syndrome ADDITIONAL CLINICAL INFORMATION: Ordering Provider Reason For Exam: ??Trigeminal neuralgia. Technologist Note: ??None. Additional: ??None. CONTRAST: ??GADOBUTROL 1 MMOL/ML IV SSM SO:8.5 mL EXAMINATION: 1.Magnetic resonance imaging (MRI) of the brain without and with contrast 2.Magnetic resonance angiography (MRA) of the head without contrast 3.MRI of the orbits without and with contrast TECHNIQUE: 1.MRI of the brain was performed prior to and following the uneventful administration of 8.5 mL intravenous GADAVIST contrast according to standard protocol. 2.MR arteriography of the head was performed without contrast utilizing time of flight technique. 3.MRI of the orbits was performed prior to and following the uneventful administration of 8.5 mL intravenous GADAVIST contrast according to standard protocol. COMPARISON: CT of the head from 10/29/2022 FINDINGS: Brain: No evidence of acute or chronic hemorrhage is identified. No evidence of acute cerebral infarction is seen. The ventricles are of stable size, shape, and morphology. A tiny septum pellucidum is present. No mass effect or midline shift is seen. Trace periventricular white matter FLAIR hyperintensity is a nonspecific finding. No enhancing lesions are identified. The corpus callosum and sella appear normal. Borderline low-lying cerebellar tonsils approximately 2 mm below the level of the foramen magnum which could represent mild cerebellar ectopia. The posterior fossa, brainstem, and craniocervical junction appear normal. The visualized portions of the mastoids appear normal. Normal flow voids are demonstrated in the carotid arteries and basilar artery. The calvarium and visualized cervical spine appear normal. Angiographic findings: The distal internal carotid arteries appear normal. The anterior and middle cerebral arteries appear normal. The distal vertebral arteries appear normal. The basilar artery and posterior cerebral arteries appear normal. There is a 2 mm lateral outpouching at the cavernous segment of the left internal carotid artery, (series 3, image 71), concerning for small aneurysm. Otherwise, no additional aneurysms, vascular occlusions, or hemodynamically significant intracranial stenoses are identified. Orbits: The globes and extraocular muscles appear normal. The lacrimal glands appear normal. Mildly dilated optic nerve sheaths. The optic nerves are symmetric in size and signal. No abnormal enhancement is identified in either optic nerve. The optic chiasm and suprasellar cistern appear normal. Meckel's cave and the cavernous sinuses appear normal. There is a mucous retention cyst in the left maxillary sinus. There is a smaller mucous retention cyst in the right maxillary sinus. Trace mucosal thickening in the ethmoid air cells.. Procedure Note Taj Ramos MD - 03/24/2024 PROCEDURE: MRI BRAIN WWO CONTRAST, MRI ORBITS OR FACE WWO CONTRAST, MRI ANGIO BRAIN ARTERIAL WO CONT, DATE/TIME OF EXAM: 03/21/2024 5:22 PM, LOCATION [facility] INDICATION: G50.0: Trigeminal neuralgia G44.59: Other complicated headache syndrome ADDITIONAL CLINICAL INFORMATION: Ordering Provider Reason For Exam: Trigeminal neuralgia. Technologist Note: None. Additional: None. CONTRAST: GADOBUTROL 1 MMOL/ML IV SSM SO:8.5 mL EXAMINATION: 1.Magnetic resonance imaging (MRI) of the brain without and withcontrast 2.Magnetic resonance angiography (MRA) of the head without contrast 3.MRI of the orbits without and with contrast TECHNIQUE: 1.MRI of the brain was performed prior to and following the uneventful administration of 8.5 mL intravenous GADAVIST contrast according to standard protocol. 2.MR arteriography of the head was performed without contrast utilizing time of flight technique. 3.MRI of the orbits was performed prior to and following the uneventful administration of 8.5 mL intravenous GADAVIST contrast according to standard protocol. COMPARISON: CT of the head from 10/29/2022 FINDINGS: Brain: No evidence of acute or chronic hemorrhage is identified. No evidence of acute cerebral infarction is seen. The ventricles are of stable size, shape, and morphology. A tiny septum pellucidum is present. No masseffect or midline shift is seen. Trace periventricular white matter FLAIR hyperintensity is a nonspecific finding. No enhancing lesions are identified. The corpus callosum and sella appear normal. Borderline low-lying cerebellar tonsils approximately 2 mm below the level of the foramen magnum which could represent mild cerebellar ectopia. Theposterior fossa, brainstem, and craniocervical junction appear normal. The visualized portions of the mastoids appear normal. Normal flow voids are demonstrated in the carotid arteries and basilar artery. Thecalvarium and visualized cervical spine appear normal. Angiographic findings: The distal internal carotid arteries appear normal. The anterior andmiddle cerebral arteries appear normal. The distal vertebral arteries appear normal. The basilar artery and posterior cerebral arteries appearnormal. There is a 2 mm lateral outpouching at the cavernous segment of the left internal carotid artery, (series 3, image 71), concerning for small aneurysm. Otherwise, no additional aneurysms, vascular occlusions, or hemodynamically significant intracranial stenoses are identified. Orbits: The globes and extraocular muscles appear normal. The lacrimal glands appear normal. Mildly dilated optic nerve sheaths. The optic nerves are symmetric in size and signal. No abnormal enhancement is identified in either optic nerve. The optic chiasm and suprasellar cistern appearnormal. Meckel's cave and the cavernous sinuses appear normal. There is a mucous retention cyst in the left maxillary sinus. There is a smaller mucous retention cyst in the right maxillary sinus. Tracemucosal thickening in the ethmoid air cells.. IMPRESSION: 1.No evidence of acute intracranial findings or abnormal enhancement. 2.Fundus examination is recommended to exclude the possibility of papilledema. 3.Otherwise, no acute MRI findings are identified in the orbits.. 4.There is a 2 mm lateral outpouching at the cavernous segment of theleft internal carotid artery, concerning for small aneurysm. 5.Otherwise, normal large arterial occlusions or hemodynamically significant stenoses identified in the head. > Interpreting Provider: Taj Ramos MD on 03/24/2024 8:37 AM Simran Montes De Oca APRN-DRAWER FITTER MR ORDERABLES * CT HEAD WO CONTRAST (10/29/2022 6:46 AM CHIROPRACTIC DOCTOR) Anatomical Region Laterality Modality Head Computed Tomogra phy 10/30/2022 8:03 AM CHIROPRACTIC DOCTOR Impressions 10/30/2022 1:08 PM CHIROPRACTIC DOCTOR IMPRESSION: No acute intracranial abnormality. Daysi Flynn MD have personally reviewed and interpreted this examination/study. > Interpreting Provider: Daysi El MD on 10/30/2022 1:08 PM Narrative 10/30/2022 1:08 PM CHIROPRACTIC DOCTOR PROCEDURE: ??CT HEAD WO CONTRAST, DATE/TIME OF EXAM: ??10/29/2022 6:46 AM, LOCATION ??[facility] INDICATION: G44.59: Other complicated headache syndrome COMPARISON: None. EXAMINATION: CT scan of the head without intravenous contrast TECHNIQUE: CT of the head was performed without intravenous contrast according to standard protocol. CT dose reduction technique was used, including Automated Exposure Control. FINDINGS: The brain parenchyma is normal in appearance. There is no CT evidence of acute infarct. There is no acute hemorrhage within the limits of the study. There is no hydrocephalus, midline shift or extra-axial fluid collection. Moderate sized mucosal retention cyst within the left maxillary sinus. The orbits are unremarkable. No significant osseous abnormality is noted. No acute fracture is noted. Hyperdense punctate foci along the scalp predominantly along the vertex could be secondary to calcifications versus punctate foreign bodies. Procedure Note Daysi El MD - 10/30/2022 PROCEDURE: CT HEAD WO CONTRAST, DATE/TIME OF EXAM: 10/29/2022 6:46 AM, LOCATION [facility] INDICATION: G44.59: Other complicated headache syndrome COMPARISON: None. EXAMINATION: CT scan of the head without intravenous contrast TECHNIQUE: CT of the head was performed without intravenous contrast according to standard protocol. CT dose reduction technique was used, including Automated Exposure Control. FINDINGS: The brain parenchyma is normal in appearance. There is no CT evidence of acute infarct. There is no acute hemorrhage within the limits of the study. There is no hydrocephalus, midline shift or extra-axial fluid collection. Moderate sized mucosal retention cyst within the left maxillary sinus.The orbits are unremarkable. No significant osseous abnormality is noted. No acute fracture is noted. Hyperdense punctate foci along the scalp predominantly along the vertex could be secondary to calcificationsversus punctate foreign bodies. IMPRESSION: No acute intracranial abnormality. Daysi Flynn MD have personally reviewed and interpreted this examination/study. > Interpreting Provider: Daysi El MD on 10/30/2022 1:08 PM Simran Montes De Oca ICT QUALITY ASSURANCE ENGINEER-DRAWER FITTER CT ORDERABLES * XR LUMBAR SPINE 2 OR 3VW (09/06/2022 1:12 PM CHIROPRACTIC DOCTOR) Anatomical Region Laterality Modality Spine Radiographic Radha ging 09/06/2022 1:19 PM CHIROPRACTIC DOCTOR Impressions 09/06/2022 1:20 PM CHIROPRACTIC DOCTOR IMPRESSION: 1. ??L5-S1 chronic degenerative disc disease > Interpreting Provider: Julio Amezcua MD on 09/06/2022 1:20 PM Narrative 09/06/2022 1:20 PM CHIROPRACTIC DOCTOR PROCEDURE: ??XR LUMBAR SPINE 2 OR 3VW, DATE/TIME OF EXAM: ??09/06/2022 1:13 PM, LOCATION ??[facility] INDICATION: M54.50: Low back pain, unspecified ADDITIONAL CLINICAL INFORMATION: Ordering Provider Reason For Exam: ??low back pain Technologist Note: Additional: ??Weightbearing COMPARISON: None. FINDINGS: There is mild to moderate chronic degenerative disc disease at L5-S1 with slight loss of interspace height. ??There is no fracture or subluxation. Facets are unremarkable. ??SI joints are patent. Procedure Note Julio Amezcua MD - 09/06/2022 PROCEDURE: XR LUMBAR SPINE 2 OR 3VW, DATE/TIME OF EXAM: :13 PM, LOCATION [facility] INDICATION: M54.50: Low back pain, unspecified ADDITIONAL CLINICAL INFORMATION: Ordering Provider Reason For Exam: low back pain Technologist Note: Additional: Weightbearing COMPARISON: None. FINDINGS: There is mild to moderate chronic degenerative disc disease at L5-S1with slight loss of interspace height. There is no fracture or subluxation. Facets are unremarkable. SI joints are patent. IMPRESSION: 1. L5-S1 chronic degenerative disc disease > Interpreting Provider: Julio Amezcua MD on 09/06/2022 1:20 PM Nicholas Loza MD DIAGNOSTIC IMAGING O RDERABLES Care Teams Reading Instructor Relationship Specialty Start Date End Date Suzanna Soto APRN-RAMÓN [address] [place] [id number] PCP - General 02/06/24
--- OUTSIDE RECORDS SUMMARY | 2024-12-01 06:02 | XMS_ITS | Clinical Summary ---
Author Organization [facility] Address [address] [place] [address]. [place] [address] [place] [address] Care Team Providers Care Outreach Librarian Name Role Phone New Referring, Provider Primary Care Provider Un available Allergies No known active allergies Medications famotidine 20 MG tablet Take 1 tablet (20 mg total) by mouth daily. 30 tablet 06/01/2019 Active dicyclomine 10 MG capsule Take 1 capsule (10 mg total) by mouth 2 (two) times daily as needed. 20 capsule 06/01/2019 Active Family History Medical History Relation Comments None Father Relation Status Comments Father Alive Mother Social History Tobacco Use Types Packs/Day Years Used Date Smoking Tobacco: Never Smokeless Tobacco: Never Alcohol Use Standard Drinks/Week Comments Yes 0 (1 standard drink = 0.6 oz pur e alcohol) SOCIALLY Comments No Sex and Gender Information Value Date Recorded Sex Assigned at Not on file Legal Sex Female 2:25 PM CDT Gender Identity Not on file Sexual Orientation Not on file Last Filed Vital Signs Vital Sign Reading Time Taken Comments Blood Pressure 128/81 06/01/2019 2:39 PM CDT Pulse 56 06/01/2019 2:39 PM CDT Temperature 36.7 ??C (98.1 ??F) 06/01/2019 2:39 PM CD T Respiratory Rate 20 06/01/2019 2:39 PM CDT Oxygen Saturation 100% 06/01/2019 2:41 PM CDT Inhaled Oxygen Concentration - - Weight 81.2 kg (179 lb) 06/01/2019 2:39 PM CDT Height 180.3 cm (5' 11 ) 06/01/2019 2:39 PM CDT Body Mass Index 24.97 06/01/2019 2:39 PM CDT Plan of Treatment Health Maintenance Due Date Last Done Comments Cervical Cancer Screening Pa p Smear (Age 21 to 29) Every 3 Years 1995 Cervical Cancer Screening 1995 Annual Physical 01/13/1999 Hepatitis C 01/13/2014 DTaP, Tdap and Td Vaccines ( 1 - Tdap) 01/13/2015 Hepatitis B Vaccines (1 of 3 - 19+ 3-dose series) 01/13/2015 COVID-19 Vaccine ( - 2023-2 5 season) 2024 Influenza Adult (#1) 2024 HPV Vaccines Aged Out No longer eligi ble based on patient's age to complete this topic Meningococcal B Vaccine Aged Out No l onger eligible based on patient's age to complete this topic Meningococcal Vaccine Aged Out No arianna alexandrea eligible based on patient's age to complete this topic Pneumococcal Vaccine: Pediat rics (0 to 5 Years) and At-Risk Patients (6 to 64 Years) Aged Out No longer eligible b ased on patient's age to complete this topic RSV Immunizations Under 20 Months Aged Out No longer eligible based on patient's age to complete this topic Insurance GENERIC - COMMERCIAL Care Teams Outreach Librarian Relationship Specialty Start Date End Date New Referring, Provider PCP - General UNKNOWN PHYSICIAN SPECIALTY 06/01/19
--- OUTSIDE RECORDS SUMMARY | 2024-12-01 06:02 | XMS_ITS | Clinical Summary ---
Author Organization [facility] Address [address] [place] [address] Care Team Providers Care Producer Assistant Name Role Phone No, Physician Primary Care Provider [phone] Allergies Active Allergy Reactions Criticality Noted Date Comments Pollen Extracts Cough,Eye irritation,Redness,Headache,Itching,S hortness of breath,Wheezing High 03/21/2007 Medications albuterol HFA (PROVENTIL HFA,VENTOLIN HFA,PROAIR HFA) 90 mcg/actuation inhaler Inhale 2 puffs every 6 (six) hours as needed 5 Active medroxyPROGESTE Timothy (PROVERA) 10 mg tabletIndicatio ns:Menorrhagia with regular cycle,Abnormal uterine bleeding (AUB) Take 1 tablet (10 mg total) by mouth daily for 10 days 30 tablet 11 1 Active topiramate (TOPAMAX) 25 mg tablet Take 1 tablet (25 mg total) by mouth 2 (two) times a day 4 Active hydrocortisone 1 % ointment Apply 1 Application topically 3 (three) times a day as needed for rash 4 Active rizatriptan (MAXALT) 5 mg tablet Take 1 tablet (5 mg total) by mouth once as needed 4 Active sertraline (ZOLOFT) 50 mg tablet Take 1.5 tablets (75 mg total) by mouth daily Active buPROPion XL (WELLBUTRIN XL) 300 mg 24 hr tablet Take 1 tablet (300 mg total) by mouth every morning Active traZODone (DESYREL) 50 mg tablet Take 1 tablet (50 mg total) by mouth nightly as needed for sleep Active gabapentin (NEURONTIN) 100 mg capsule Take 1 capsule (100 mg total) by mouth 3 (three) times a day Active OXcarbazepine (TRILEPTAL) 600 mg tablet Take 1 tablet (600 mg total) by mouth 2 (two) times a day Active Active Problems Problem Noted Date Diagnosed Date Chronic migraine w/o aura w/ o status migrainosus, not intractable 10/08/2024 Pseudopapilledema of both optic discs 10/08/2024 Abnormal uterine bleeding (AUB) 10/23/2021 Encounters Date Type Department Care Team Description 10/13/2024 4:41 PM HOSPITAL LABORATORY TECHNICIAN - 10/13/2024 11:59 PM HOSPITAL LABORATORY TECHNICIAN Hospital Encounter [facility] ([facility]) [address] [place] [phone] Discharge Disposition: Discharge to home or self care 10/13/2024 4:39 PM HOSPITAL LABORATORY TECHNICIAN - 10/13/2024 11:59 PM HOSPITAL LABORATORY TECHNICIAN Hospital Encounter [facility] ([facility]) [address] [place] [address] Discharge Disposition: Discharge to home or self care 10/13/2024 4:37 PM HOSPITAL LABORATORY TECHNICIAN - 10/13/2024 11:59 PM HOSPITAL LABORATORY TECHNICIAN Hospital Encounter [facility] ([facility]) [address] [place] [phone] Discharge Disposition: Discharge to home or self care 10/13/2024 4:36 PM HOSPITAL LABORATORY TECHNICIAN - 10/13/2024 11:59 PM HOSPITAL LABORATORY TECHNICIAN Hospital Encounter [facility] ([facility]) [address] [place] [phone] Discharge Disposition: Discharge to home or self care 10/08/2024 10:52 AM HOSPITAL LABORATORY TECHNICIAN - 10/08/2024 11:59 PM HOSPITAL LABORATORY TECHNICIAN Hospital Encounter [facility] ([facility]) [address] [place] [phone] Discharge Disposition: Discharge to home or self care 10/08/2024 10:50 AM HOSPITAL LABORATORY TECHNICIAN - 10/08/2024 11:59 PM HOSPITAL LABORATORY TECHNICIAN Hospital Encounter [facility] ([facility]) [address] [place] [phone] Discharge Disposition: Discharge to home or self care 10/08/2024 10:41 AM HOSPITAL LABORATORY TECHNICIAN - 10/08/2024 11:59 PM HOSPITAL LABORATORY TECHNICIAN Hospital Encounter [facility] ([facility]) [address] [place] [phone] Discharge Disposition: Discharge to home or self care 10/07/2024 3:30 PM HOSPITAL LABORATORY TECHNICIAN Imaging Exam [facility] Ophthalmology [address] [place] [address] Outpatient Health [address] [place] [phone] 10/07/2024 3:20 PM HOSPITAL LABORATORY TECHNICIAN Imaging Exam [facility] Ophthalmology [address] [place] [phone] 10/07/2024 3:10 PM HOSPITAL LABORATORY TECHNICIAN Imaging Exam [facility] Ophthalmology [address] [place] [phone] 10/07/2024 2:30 PM HOSPITAL LABORATORY TECHNICIAN Office Visit [facility] Ophthalmology [address] [place] [phone] Eligio Payne MD Chronic migraine w/o aura w/o status migrainosus, not intractable (Primary Dx); Pseudopapilledema of both optic discs from Last 3 Months Medical History Medical History Date Comments Asthma PE (pulmonary thromboembolism) (CMS/HCC) (HCC) 2 016 Family History Medical History Relation Name Comments No Known Problems Father No Known Problems Maternal Grandfather No Known Problems Maternal Grandmother Diabetes Mother Heart attack Mother Heart disease Mother Hypertension Mother Stroke Mother No Known Problems Paternal Grandfather No Known Problems Paternal Grandmother Breast cancer Neg Hx Ovarian cancer Neg Hx Uterine cancer Neg Hx Relation Name Status Comments Father Alive Maternal Grandfather Alive Maternal Grandmother Alive Mother Paternal Grandfather Alive Paternal Grandmother Alive Social History Tobacco Use Types Packs/Day Years Used Date Smoking Tobacco: Never Smokeless Tobacco: Never Alcohol Use Standard Drinks/Week Comments Yes 0 (1 standard drink = 0.6 oz pur e alcohol) Comments No Sex and Gender Information Value Date Recorded Sex Assigned at Not on file Legal Sex Female 9:08 PM HOSPITAL LABORATORY TECHNICIAN Gender Identity Not on file Sexual Orientation Not on file Obstetrics History Last Filed Vital Signs Vital Sign Reading Time Taken Comments Blood Pressure 112/76 10/19/2021 10:44 AM HOSPITAL LABORATORY TECHNICIAN Pulse 76 09/26/2021 8:40 PM HOSPITAL LABORATORY TECHNICIAN Temperature 36.8 ??C (98.2 ??F) 09/26/2021 3:57 PM CS T Respiratory Rate 18 09/26/2021 8:40 PM HOSPITAL LABORATORY TECHNICIAN Oxygen Saturation 100% 09/26/2021 8:40 PM HOSPITAL LABORATORY TECHNICIAN Inhaled Oxygen Concentration - - Weight 106.6 kg (235 lb) 10/19/2021 10:44 AM HOSPITAL LABORATORY TECHNICIAN Height 180.3 cm (5' 10.98 ) 10/19/2021 10:44 AM HOSPITAL LABORATORY TECHNICIAN Body Mass Index 32.79 10/19/2021 10:44 AM HOSPITAL LABORATORY TECHNICIAN Plan of Treatment Health Maintenance Due Date Last Done Comments Cervical Cancer Screening 1996 Depression Screening 1996 Hepatitis C Screening 1996 Pneumococcal vaccine <65 (1 of 2 - PCV) 01/13/2002 Varicella Vaccines (1 of 2 - 13+ 2-dose series) 01/13/2009 Hepatitis B Screening 01/13/2014 Regular Well Visit/Exam 18-64 01/13/2014 Influenza Vaccine (#1) 2024 DTaP/Tdap/Td Vaccine (2 - Td or Tdap) 02/26/2030 02/27/2020 HPV Vaccines Aged Out No longer eligi ble based on patient's age to complete this topic Procedures Procedure Name Priority Date/Time Associated Diagnosis Comments NEURO CT OUTSIDE REFERENCE Routine 10/13/2024 4:41 PM HOSPITAL LABORATORY TECHNICIAN NEURO MR OUTSIDE REFERENCE Routine 10/13/2024 4:39 PM HOSPITAL LABORATORY TECHNICIAN XR TRANSFER OF OUTSIDE FILMS Routine 10/13/2024 4:37 PM HOSPITAL LABORATORY TECHNICIAN NEURO MR OUTSIDE REFERENCE Routine 10/13/2024 4:36 PM HOSPITAL LABORATORY TECHNICIAN NEURO MR OUTSIDE REFERENCE Routine 10/08/2024 10:52 AM HOSPITAL LABORATORY TECHNICIAN NEURO MR OUTSIDE REFERENCE Routine 10/08/2024 10:50 AM HOSPITAL LABORATORY TECHNICIAN NEURO MR OUTSIDE REFERENCE Routine 10/08/2024 10:41 AM HOSPITAL LABORATORY TECHNICIAN OCT, OPTIC NERVE - OU - BOTH EYES Routine 10/07/2024 3:59 PM HOSPITAL LABORATORY TECHNICIAN Pseudopapilledema of both optic discs OCT, RETINA - OU - BOTH EYES Routine 10/07/2024 3:59 PM HOSPITAL LABORATORY TECHNICIAN Pseudopapilledema of both optic discs FUNDUS PHOTOS/FAF - OU - BOTH EYES Routine 10/07/2024 2:30 PM HOSPITAL LABORATORY TECHNICIAN Pseudopapilledema of both optic discs HOLLIDAY VISUAL FIELD - OU - BOTH EYES Routine 10/07/2024 2:30 PM HOSPITAL LABORATORY TECHNICIAN Pseudopapilledema of both optic discs from Last 3 Months Results * Neuro CT Outside Reference (10/13/2024 4:41 PM HOSPITAL LABORATORY TECHNICIAN) Impressions [facility] - 10/13/2024 4:41 PM HOSPITAL LABORATORY TECHNICIAN These images are for Reference purposes only and have not been reviewed by [facility] Radiology. ??There will be no report generated by a [facility] Radiologist. Narrative [facility] - 10/13/2024 4:41 PM HOSPITAL LABORATORY TECHNICIAN EXAMINATION: ??Images For Reference Purposes Only Eligio Payne MD IMG CT PROCEDURES Fi nal Result [facility] * Neuro MR Outside Reference (10/13/2024 4:39 PM HOSPITAL LABORATORY TECHNICIAN) Impressions [facility] - 10/13/2024 4:39 PM HOSPITAL LABORATORY TECHNICIAN These images are for Reference purposes only and have not been reviewed by [facility] Radiology. ??There will be no report generated by a [facility] Radiologist. Narrative [facility] - 10/13/2024 4:39 PM HOSPITAL LABORATORY TECHNICIAN EXAMINATION: ??Images For Reference Purposes Only Eligio Payne MD IMG MRI PROCEDURES F inal Result Performing Organization Address [facility] de Phone Number [facility] * XR Outside Reference (10/13/2024 4:37 PM HOSPITAL LABORATORY TECHNICIAN) Impressions [facility] - 10/13/2024 4:37 PM HOSPITAL LABORATORY TECHNICIAN These images are for Reference purposes only and have not been reviewed by [facility] Radiology. ??There will be no report generated by a [facility] Radiologist. Narrative [facility] - 10/13/2024 4:37 PM HOSPITAL LABORATORY TECHNICIAN EXAMINATION: ??Images For Reference Purposes Only Eligio Payne MD IMG XR PROCEDURES Fi nal Result Performing Organization Address [facility] de Phone Number [facility] * Neuro MR Outside Reference (10/13/2024 4:36 PM HOSPITAL LABORATORY TECHNICIAN) Impressions [facility] - 10/13/2024 4:36 PM HOSPITAL LABORATORY TECHNICIAN These images are for Reference purposes only and have not been reviewed by [facility] Radiology. ??There will be no report generated by a [facility] Radiologist. Narrative [facility] - 10/13/2024 4:36 PM HOSPITAL LABORATORY TECHNICIAN EXAMINATION: ??Images For Reference Purposes Only Eligio Payne MD IMG MRI PROCEDURES F inal Result Performing Organization Address [facility] de Phone Number [facility] * Neuro MR Outside Reference (10/08/2024 10:52 AM HOSPITAL LABORATORY TECHNICIAN) Impressions [facility] - 10/08/2024 10:52 AM HOSPITAL LABORATORY TECHNICIAN These images are for Reference purposes only and have not been reviewed by [facility] Radiology. ??There will be no report generated by a [facility] Radiologist. Narrative [facility] - 10/08/2024 10:52 AM HOSPITAL LABORATORY TECHNICIAN EXAMINATION: ??Images For Reference Purposes Only Eligio Payne MD IM MRI PROCEDURES F inal Result Performing Organization Address [facility] de Phone Number [facility] * Neuro MR Outside Reference (10/08/2024 10:50 AM HOSPITAL LABORATORY TECHNICIAN) Impressions [facility] - 10/08/2024 10:50 AM HOSPITAL LABORATORY TECHNICIAN These images are for Reference purposes only and have not been reviewed by [facility] Radiology. ??There will be no report generated by a [facility] Radiologist. Narrative [facility] - 10/08/2024 10:50 AM HOSPITAL LABORATORY TECHNICIAN EXAMINATION: ??Images For Reference Purposes Only Eligio Payne MD [facility] MRI PROCEDURES F inal Result Performing Organization Address [facility] de Phone Number [facility] * Neuro MR Outside Reference (10/08/2024 10:41 AM HOSPITAL LABORATORY TECHNICIAN) Impressions [facility] - 10/08/2024 10:41 AM HOSPITAL LABORATORY TECHNICIAN These images are for Reference purposes only and have not been reviewed by [facility] Radiology. ??There will be no report generated by a [facility] Radiologist. Narrative [facility] - 10/08/2024 10:41 AM HOSPITAL LABORATORY TECHNICIAN EXAMINATION: ??Images For Reference Purposes Only Eligio Payne MD [facility] MRI PROCEDURES F inal Result Performing Organization Address [facility] de Phone Number [facility] * OCT, Optic Nerve - OU - Both Eyes (10/07/2024 3:59 PM HOSPITAL LABORATORY TECHNICIAN) RNFL OS 95 micrometers CONTINUUM RNFL OD 99 micrometers CONTINUUM Anatomical Region Laterality Modality Head Other Narrative 10/08/2024 9:42 AM HOSPITAL LABORATORY TECHNICIAN Right Eye Reliability was good. Average RNFL thickness 99 micrometers. Left Eye Reliability was good. Average RNFL thickness 95 micrometers. Notes No signs of thinning or thickening both eyes (OU) us Ivonne Foreman MD OPHTH TOMOGRAPHY Final Resu lt * OCT, Retina - OU - Both Eyes (10/07/2024 3:59 PM HOSPITAL LABORATORY TECHNICIAN) Central Macular Thickness OS 266 mircometers CONTINUUM Central Macular Thickness OD 270 micrometers CONTINUUM Anatomical Region Laterality Modality Head Other Narrative 10/08/2024 9:42 AM HOSPITAL LABORATORY TECHNICIAN Right Eye Quality was good. Macular thickness was 270 micrometers. Left Eye Quality was good. Macular thickness was 266 mircometers. Notes Normal OCT mac OU GCC without thinning OU; 81/80 us Ivonne Foreman MD OPHTH TOMOGRAPHY Final Resu lt * Fundus Photos/FAF - OU - Both Eyes (10/07/2024 2:30 PM HOSPITAL LABORATORY TECHNICIAN) Anatomical Region Laterality Modality Head Fundus Photograp hy Narrative 10/08/2024 9:42 AM HOSPITAL LABORATORY TECHNICIAN Right Eye Quality was good. Left Eye Quality was good. Notes OD crowded optic disc with no edema or pallor, temporal retinal tear with surrounding laser barricade OS crowded optic discs with no edema or pallor Fundus auto fluorescence photography showed no evidence of optic disc drusen in either eye. us Ivonne Foreman MD OPHTH PHOTOGRAPHY Final Res ult * Holliday Visual Field - OU - Both Eyes (10/07/2024 2:30 PM HOSPITAL LABORATORY TECHNICIAN) Pattern Deviation OS 1.73 CONTINUUM Pattern Deviation OD 1.17 CONTINUUM Mean Deviation OS -1.06 CONTINUUM Mean Deviation OD -1.71 CONTINUUM Anatomical Region Laterality Modality Head Other Narrative 10/08/2024 9:41 AM HOSPITAL LABORATORY TECHNICIAN Right Eye Fixation was good. Cooperation was good. Reliability was good. Mean Deviation was -1.71. Pattern Deviation was 1.17. Left Eye Fixation was good. Cooperation was good. Reliability was good. Mean Deviation was -1.06. Pattern Deviation was 1.73. Notes Full OU Ivonne Foreman MD OPHTH VISUAL FIELD Final Re sult from Last 3 Months Insurance [facility] PLAN [facility] CIG ALLEGIANCE Care Teams Producer Assistant Relationship Specialty Start Date End Date No, Physician PCP - General 02/28/20
--- OUTSIDE RECORDS SUMMARY | 2024-12-01 06:02 | XMS_ITS | Clinical Summary ---
Author Organization [facility] Address [address] [place] [address] Care Team Providers Care Investor Name Role Phone Suzanna Soto MANAGER ADVERTISING-TELEVISION SCHEDULE COORDINATOR Primary Care Provider + Source Comments [facility],non-owned Affiliates and Associated Physician Practices is amultiple site organization consisting of ambulatory clinics and hospital sitesin [place], [place] and [place]. This disclosure is being madepursuant to the Care Everywhere program and may not contain all information available regarding this patient. Last updated 18.[facility] Allergies Active Allergy Reactions Criticality Noted Date Comments Seasonal Cough,Eye Discomfort ,Eye Itching,Eye Redness,Headache,Itching,Shortness of Breath,Wheezing High 03/21/2007 Medications * Be aware that medications may not be up to date on this document. Alwaysverify current medications with the patient. Medication Sig Dispensed Refills Start Date End Date Status rizatriptan (Maxalt) 5 MG tabletIndications: Intractable migraine with status migrainosus, unspecified migraine type TAKE 1 TABLET BY MOUTH 1 TIME AT EARLY ONSET OF MIGRAINE. MAY REPEAT 1 TIME AFTER 2 HOURS NEEDED 9 tablet 11 02/19/2024 Active fluticasone propionate (Flonase) 50 MCG/ACT nasal spray SHAKE LIQUID AND USE 1 SPRAY IN EACH NOSTRIL TWICE DAILY 05/31/2023 Active hydrocortisone (Hytone) 1 % ointment APPLY TOPICALLY TO THE AFFECTED AREA THREE TIMES DAILY NEEDED FOR RASH 02/10/2024 Active Mirena, 52 MG, 20 MCG/DAY IUD 11/04/2023 Active acetaZOLAMIDE ER 12hr (Diamox Sequel) 500 MG capsule Take 1 (one) capsule by mouth 2 times daily 60 capsule 11 05/26/2024 05/26/2025 Active doxycycline hyclate 100 MG tablet 07/02/2024 Active buPROPion XL 24hr (Wellbutrin-XL) 300 MG tablet 1 tablet in the morning Orally Once a day for 90 days Active sertraline (Zoloft) 50 MG tablet 1.5 tablet Oral Once a day for 90 days Active traZODone (Desyrel) 50 MG tablet 1 tablet at bedtime as needed Oral Once a day for 90 days 02/26/2024 Active albuterol HFA (Proventil; Ventolin; Proair) 108 (90 Base) MCG/ACT inhaler 07/28/2024 Active Levonorgestrel (MIRENA, 52 MG, IU) MIRENA 21 MCG/24 HR (UP TO 8 YEARS) 52 MG INTRAUTERINE DEVICE 02/26/2024 Active valACYclovir (Valtrex) 500 MG tablet Oral 02/26/2024 Active fluticasone diskus (Flovent Diskus) 50 MCG/ACT inhaler Inhalation 02/26/2024 Active topiramate (Topamax) 25 MG tabletIndications: Intractable migraine with status migrainosus, unspecified migraine type TAKE 1 TABLET BY MOUTH TWICE DAILY 180 tablet 3 09/07/2024 Active Active Problems No known active problems Encounters Date Type Department Care Team Description 09/07/2024 Refill [facility] - Neurology [address] [place] [address], [facility] [place] [phone] Simran Montes De Oca APRN-CNP Refill Request from Last 3 Months Family History Medical History Relation Name Comments Blindness Neg Hx Cataract Neg Hx Glaucoma Neg Hx Macular Degeneration Neg Hx Social History Tobacco Use Types Packs/Day Years [...] Mass Index 26.5 05/26/2024 6:54 AM CDT Plan of Treatment Health Maintenance Due Date Last Done Comments PAP SMEAR 1996 HIV SCREENING 01/13/2011 HEPATITIS C SCREENING 01/09/2014 DTAP/TDAP/TD VACCINES (1 - Tdap) 01/13/2015 HEPATITIS B VACCINE (1 of 3 - 19+ 3-dose series) 01/13/2015 COVID-19 VACCINE ( - 2023-2 5 season) 2024 09/15/2021, 08/25/2021 INFLUENZA VACCINE (#1) 2024 DEPRESSION SCREENING 10/28/2024 ZOSTER VACCINE (1 of 2) 01/13/2046 HIB VACCINE Aged Out No longer eligi ble based on patient's age to complete this topic HPV VACCINE Aged Out No longer eligi ble based on patient's age to complete this topic MENINGOCOCCAL (Group B) VACCINE Aged Out No longer eligible b ased on patient's age to complete this topic MENINGOCOCCAL VACCINE Aged Out No arianna alexandrea eligible based on patient's age to complete this topic PNEUMOCOCCAL VACCINE Aged Out No long er eligible based on patient's age to complete this topic Care Teams Investor Relationship Specialty Start Date End Date Suzanna Soto APRN-TELEVISION SCHEDULE COORDINATOR [address] [place] [phone] PCP - General 02/06/24
--- OUTSIDE RECORDS SUMMARY | 2024-12-01 06:02 | XMS_ITS | Referral Summary ---
Author Organization [facility] Address [address] [place] [address] Care Team Providers Care Cook Station Name Role Phone No, Physician Primary Care Provider [phone] Encounters Date Type Department Care Team Description 10/13/2024 4:41 PM PAPER FOLDER - 10/13/2024 11:59 PM PAPER FOLDER Hospital Encounter [facility] ([facility]) [address] [place] [address] Discharge Disposition: Discharge to home or self care 10/13/2024 4:39 PM PAPER FOLDER - 10/13/2024 11:59 PM PAPER FOLDER Hospital Encounter [facility] ([facility]) [address] [place] [address] Discharge Disposition: Discharge to home or self care 10/13/2024 4:37 PM PAPER FOLDER - 10/13/2024 11:59 PM PAPER FOLDER Hospital Encounter [facility] ([facility]) [address] [place] [phone] Discharge Disposition: Discharge to home or self care 10/13/2024 4:36 PM PAPER FOLDER - 10/13/2024 11:59 PM PAPER FOLDER Hospital Encounter [facility] ([facility]) [address] [place] [phone] Discharge Disposition: Discharge to home or self care 10/08/2024 10:52 AM PAPER FOLDER - 10/08/2024 11:59 PM PAPER FOLDER Hospital Encounter [facility] ([facility]) [address] [place] [address] Discharge Disposition: Discharge to home or self care 10/08/2024 10:50 AM PAPER FOLDER - 10/08/2024 11:59 PM PAPER FOLDER Hospital Encounter [facility] ([facility]) [address] [place] [address] Discharge Disposition: Discharge to home or self care 10/08/2024 10:41 AM PAPER FOLDER - 10/08/2024 11:59 PM PAPER FOLDER Hospital Encounter [facility] ([facility]) [address] [place] [address] Discharge Disposition: Discharge to home or self care 10/07/2024 3:30 PM PAPER FOLDER Imaging Exam [facility] [address] [place] [phone] 10/07/2024 3:10 PM PAPER FOLDER Imaging Exam [facility] [address] [place] [phone] 10/07/2024 3:20 PM PAPER FOLDER Imaging Exam [facility] [address] [place] [phone] 10/07/2024 2:30 PM PAPER FOLDER Office Visit [facility] [address] [place] [phone] Eligio Payne MD Chronic migraine w/o aura w/o status migrainosus, not intractable (Primary Dx); Pseudopapilledema of both optic discs from Last 3 Months Allergies Active Allergy Reactions Criticality Noted Date [...] by mouth nightly as needed for sleep 4 Active gabapentin (NEURONTIN) 100 mg capsule Take [...] discs 10/08/2024 Abnormal uterine bleeding (AUB) 10/23/2021 Social History Tobacco Use Types Packs/Day Years Used Date Smoking Tobacco: Never Smokeless Tobacco: Never Alcohol Use Standard Drinks/Week Comments Yes 0 (1 standard drink = 0.6 oz pur e alcohol) Comments No Sex and Gender Information Value Date Recorded Sex Assigned at Not on file Legal Sex Female 9:08 PM PAPER FOLDER Gender Identity Not on file Sexual Orientation Not on file Last Filed Vital Signs Vital Sign Reading Time Taken Comments Blood Pressure 112/76 10/19/2021 10:44 AM PAPER FOLDER Pulse 76 09/26/2021 8:40 PM PAPER FOLDER Temperature 36.8 ??C (98.2 ??F) 09/26/2021 3:57 PM CS T Respiratory Rate 18 09/26/2021 8:40 PM PAPER FOLDER Oxygen Saturation 100% 09/26/2021 8:40 PM PAPER FOLDER Inhaled Oxygen Concentration - - Weight 106.6 kg (235 lb) 10/19/2021 10:44 AM PAPER FOLDER Height 180.3 cm (5' 10.98 ) 10/19/2021 10:44 AM PAPER FOLDER Body Mass Index 32.79 10/19/2021 10:44 AM PAPER FOLDER Plan of Treatment Not on file Procedures Procedure Name Priority Date/Time Associated Diagnosis Comments NEURO CT OUTSIDE REFERENCE Routine 10/13/2024 4:41 PM PAPER FOLDER NEURO MR OUTSIDE REFERENCE Routine 10/13/2024 4:39 PM PAPER FOLDER XR TRANSFER OF OUTSIDE FILMS Routine 10/13/2024 4:37 PM PAPER FOLDER NEURO MR OUTSIDE REFERENCE Routine 10/13/2024 4:36 PM PAPER FOLDER NEURO MR OUTSIDE REFERENCE Routine 10/08/2024 10:52 AM PAPER FOLDER NEURO MR OUTSIDE REFERENCE Routine 10/08/2024 10:50 AM PAPER FOLDER NEURO MR OUTSIDE REFERENCE Routine 10/08/2024 10:41 AM PAPER FOLDER OCT, OPTIC NERVE - OU - BOTH EYES Routine 10/07/2024 3:59 PM PAPER FOLDER Pseudopapilledema of both optic discs OCT, RETINA - OU - BOTH EYES Routine 10/07/2024 3:59 PM PAPER FOLDER Pseudopapilledema of both optic discs FUNDUS PHOTOS/FAF - OU - BOTH EYES Routine 10/07/2024 2:30 PM PAPER FOLDER Pseudopapilledema of both optic discs HOLLIDAY VISUAL FIELD - OU - BOTH EYES Routine 10/07/2024 2:30 PM PAPER FOLDER Pseudopapilledema of both optic discs from Last 3 Months Results * Neuro CT Outside Reference (10/13/2024 4:41 PM PAPER FOLDER) Impressions [facility] - 10/13/2024 4:41 PM PAPER FOLDER These images are for Reference purposes only and have not been reviewed by [facility]. ??There will be no report generated by a [facility] Radiologist. Narrative [facility] - 10/13/2024 4:41 PM PAPER FOLDER EXAMINATION: ??Images For Reference Purposes Only Eligio Payne MD IMG CT PROCEDURES Fi nal Result Performing Organization Address [facility] de Phone Number [facility] * Neuro MR Outside Reference (10/13/2024 4:39 PM PAPER FOLDER) Impressions [facility] - 10/13/2024 4:39 PM PAPER FOLDER These images are for Reference purposes only and have not been reviewed by [facility]. ??There will be no report generated by a [facility] Radiologist. Narrative [facility] - 10/13/2024 4:39 PM PAPER FOLDER EXAMINATION: ??Images For Reference Purposes Only Eligio Payne MD IMG MRI PROCEDURES F inal Result Performing Organization Address [facility] de Phone Number [facility] * XR Outside Reference (10/13/2024 4:37 PM PAPER FOLDER) Impressions [facility] - 10/13/2024 4:37 PM PAPER FOLDER These images are for Reference purposes only and have not been reviewed by [facility]. ??There will be no report generated by a [facility] Radiologist. Narrative [facility] - 10/13/2024 4:37 PM PAPER FOLDER EXAMINATION: ??Images For Reference Purposes Only Eligio Payne MD IMG XR PROCEDURES Fi nal Result Performing Organization Address [facility] de Phone Number [facility] * Neuro MR Outside Reference (10/13/2024 4:36 PM PAPER FOLDER) Impressions [facility] - 10/13/2024 4:36 PM PAPER FOLDER These images are for Reference purposes only and have not been reviewed by [facility]. ??There will be no report generated by a [facility] Radiologist. Narrative [facility] - 10/13/2024 4:36 PM PAPER FOLDER EXAMINATION: ??Images For Reference Purposes Only Result [facility] Eligio Payne MD IMG MRI PROCEDURES F inal Result Performing Organization Address [facility] Co de Phone Number [facility] * Neuro MR Outside Reference (10/08/2024 10:52 AM PAPER FOLDER) Impressions [facility] - 10/08/2024 10:52 AM PAPER FOLDER These images are for Reference purposes only and have not been reviewed by [facility]. ??There will be no report generated by a [facility] Radiologist. Narrative [facility] - 10/08/2024 10:52 AM PAPER FOLDER EXAMINATION: ??Images For Reference Purposes Only Eligio Payne MD IMG MRI PROCEDURES F inal Result Performing Organization Address [facility] de Phone Number [facility] * Neuro MR Outside Reference (10/08/2024 10:50 AM PAPER FOLDER) Impressions [facility] - 10/08/2024 10:50 AM PAPER FOLDER These images are for Reference purposes only and have not been reviewed by [facility]. ??There will be no report generated by a [facility] Radiologist. Narrative [facility] - 10/08/2024 10:50 AM PAPER FOLDER EXAMINATION: ??Images For Reference Purposes Only Eligio Payne MD IMG MRI PROCEDURES F inal Result Performing Organization Address [facility] de Phone Number [facility] * Neuro MR Outside Reference (10/08/2024 10:41 AM PAPER FOLDER) Impressions [facility] - 10/08/2024 10:41 AM PAPER FOLDER These images are for Reference purposes only and have not been reviewed by [facility]. ??There will be no report generated by a [facility] Radiologist. Narrative [facility] - 10/08/2024 10:41 AM PAPER FOLDER EXAMINATION: ??Images For Reference Purposes Only Eligio Payne MD IMG MRI PROCEDURES F inal Result [facility] * OCT, Optic Nerve - OU - Both Eyes (10/07/2024 3:59 PM PAPER FOLDER) RNFL OS 95 micrometers CONTINUUM RNFL OD 99 micrometers CONTINUUM Anatomical Region Laterality Modality Head Other Narrative 10/08/2024 9:42 AM PAPER FOLDER Right Eye Reliability was good. Average RNFL thickness 99 micrometers. Left Eye Reliability was good. Average RNFL thickness 95 micrometers. Notes No signs of thinning or thickening both eyes (OU) Ivonne Foreman MD OPHTH TOMOGRAPHY Final Resu lt * OCT, Retina - OU - Both Eyes (10/07/2024 3:59 PM PAPER FOLDER) Central Macular Thickness OS 266 mircometers CONTINUUM Central Macular Thickness OD 270 micrometers CONTINUUM Anatomical Region Laterality Modality Head Other Narrative 10/08/2024 9:42 AM PAPER FOLDER Right Eye Quality was good. Macular thickness was 270 micrometers. Left Eye Quality was good. Macular thickness was 266 mircometers. Notes Normal OCT mac OU GCC without thinning OU; 81/80 Ivonne Foreman MD OPHTH TOMOGRAPHY Final Resu lt * Fundus Photos/FAF - OU - Both Eyes (10/07/2024 2:30 PM PAPER FOLDER) Anatomical Region Laterality Modality Head Fundus Photograp hy Narrative 10/08/2024 9:42 AM PAPER FOLDER Right Eye Quality was good. Left Eye Quality was good. Notes OD crowded optic disc with no edema or pallor, temporal retinal tear with surrounding laser barricade OS crowded optic discs with no edema or pallor Fundus auto fluorescence photography showed no evidence of optic disc drusen in either eye. Ivonne Foreman MD OPHTH PHOTOGRAPHY Final Res ult * Holliday Visual Field - OU - Both Eyes (10/07/2024 2:30 PM PAPER FOLDER) Pattern Deviation OS 1.73 CONTINUUM Pattern Deviation OD 1.17 CONTINUUM Mean Deviation OS -1.06 CONTINUUM Mean Deviation OD -1.71 CONTINUUM Anatomical Region Laterality Modality Head Other Narrative 10/08/2024 9:41 AM PAPER FOLDER Right Eye Fixation was good. Cooperation was good. Reliability was good. Mean Deviation was -1.71. Pattern Deviation was 1.17. Left Eye Fixation was good. Cooperation was good. Reliability was good. Mean Deviation was -1.06. Pattern Deviation was 1.73. Notes Full OU Ivonne Foreman MD OPH VISUAL FIELD Final Re sult from Last 3 Months Insurance [facility] PLAN JOLENE ROCHA [id number] KIN MCGRAWCE KIN MCGRAWCE Care Teams Cook Station Relationship Specialty Start Date End Date No, Physician PCP - General 02/28/20
--- OUTSIDE RECORDS SUMMARY | 2024-12-01 06:02 | XMS_ITS | Clinical Summary ---
Author Organization [facility] [employer] [facility] Address [address] [address] Care Team Providers Care Dimensional Inspector Name Role Phone Unavailable Primary Care Provider Unavailabl e Active Problems No known active problems Social History Tobacco Use Types Packs/Day Years Used Date Smoking Tobacco: Never Assessed Comments Unknown Sex and Gender Information Value Date Recorded Sex Assigned at Not on file Legal Sex Female 8:47 AM CDT Gender Identity Not on file Sexual Orientation Not on file Last Filed Vital Signs Vital Sign Reading Time Taken Comments Blood Pressure 114/62 03/28/2023 9:47 AM CDT Pulse - - Temperature - - Respiratory Rate - - Oxygen Saturation - - Inhaled Oxygen Concentration - - Weight 92.5 kg (204 lb) 03/28/2023 9:47 AM CDT Height 180.3 cm (5' 11 ) 03/28/2023 9:47 AM CDT Body Mass Index 28.45 03/28/2023 9:47 AM CDT Plan of Treatment Upcoming Encounters Date Type Department Care Team (Late st Contact Info) Description 12/28/2024 9:40 AM CALENDER TENDER Office Visit [facility] [address] [phone] Health Maintenance Due Date Last Done Comments DTAP/TDAP/TD VACCINES (1 - Tdap) 01/13/2015 HEPATITIS B VACCINES (1 of 3 - 19+ 3-dose series) 01/13/2015 CERVICAL CANCER SCREENING 01/13/2017 INFLUENZA VACCINE (#1) 2024 HPV VACCINES Aged Out No longer eligi ble based on patient's age to complete this topic PNEUMOCOCCAL VACCINE 0-64 YEARS Aged Out No longer eligible based on patient's age to complete this topic Insurance [employer] OPEN [employer]ESS * Guarantor: [employer] Buckley (C) Account Type Relation to Patient Date of Phone Billing Address Corporate Employer ATTN: JULIUS CAPPS [id number] [address] [employer]ESS
--- OUTSIDE RECORDS SUMMARY | 2024-12-01 06:02 | XMS_ITS | Referral Summary ---
Author Organization [facility] Address [address] [place] [address] Care Team Providers Care Mushroom Sorter Grader Name Role Phone SotoSuzanna delacruz PADMINI Primary Care Provider + Source Comments [facility],non-owned Affiliates and Associated Physician Practices is amultiple site organization consisting of ambulatory clinics and hospital sitesin [place], [place], [place] and [place]. This disclosure is being madepursuant to the Care Everywhere program and may not contain all information available regarding this patient. Last updated 18.[facility] Encounters Date Type Department Care Team Description 09/07/2024 Refill [facility] - Neurology [address] [place] [phone] Simran Montes De Oca APRN-CNP Refill Request from Last 3 Months Allergies Active Allergy [...] Active Active Problems No known active problems Social [...] 05/26/2024 6:54 AM CDT Plan of Treatment Not on file Care Teams Mushroom Sorter Grader Relationship Specialty Start Date End Date Suzanna Soto APRN-RAMÓN [address] [place] [phone] [facility] - General 02/06/24
--- OUTSIDE RECORDS SUMMARY | 2024-12-01 06:02 | XMS_ITS | Encounter Summary ---
Author Organization [facility] Care Team Providers Care Sheet Metal Apprentice Name Role Phone No, Physician Primary Care Provider [phone] Encounter Details Date Type Department Care Team (Latest Contact Info) Description 12/22/2018 Orders Only [facility] ProviderDale MD [address] [place] [phone] Social History Tobacco Use Types Packs/Day Years Used Date Smoking Tobacco: Never Assessed Comments Unknown Sex and Gender Information Value Date Recorded Sex Assigned at Not on file Legal Sex Female 9:08 PM INDUSTRIAL CUSTODIAN Gender Identity Not on file Sexual Orientation Not on file documented as of this encounter Plan of Treatment Not on file documented as of this encounter Procedures Procedure Name Priority Date/Time Associated Diagnosis Comments CARDIOLOGY REPORT 01/08/2019 12: 00 AM CDT documented in this encounter Results * CARDIOLOGY REPORT (01/08/2019 12:00 AM CDT) Anatomical Region Laterality Modality Other Narrative 01/08/2019 12:00 AM CDT Ordered by an unspecified provider. Historical Provider [facility] VANESSA DEVINE Final Result documented in this encounter Visit Diagnoses Not on filedocumented in this encounter Additional Health Concerns Infection Onset Date Last Indicated Resolved Time MRSA Comment:thinks 5 years ago when in [place]. had iv antibiotics for days 08/05/2019 08/04/20192020 5:00 AM CDT documented as of this encounter Care Teams Sheet Metal Apprentice Relationship Specialty Start Date End Date No, Physician PCP - General 02/28/20 documented as of this encounter
[2024-12-01 06:06] VITALS: BP 126/78; PULSE 73; RESP 18; TEMP 36.8; O2SAT 100
--- NOTE | 2024-12-01 07:39 | ED_ITS ---
HPI - General Adult General Chief complaint: Unspecified Stated complaint: nerve pain in my mouth Time Seen by Provider: 12/01/24 06:54 Source: patient and family Mode of arrival: ambulatory Limitations: no limitations History of Present Illness HPI narrative: 29-year-old here with the complaints of right-sided facial pain which is been ongoing for several years she has seen oral maxillary surgery, neurology in the past and she states the pain is not getting any better. She was normalized recommended surgery however she has not followed up with anybody. Want for now she denies having any headache, problem swallowing. No history of fever. Onset (ago): year(s) Location: face (Right side of her face) Radiation: non-radiation Severity: mild Quality: constant Pain Consistency: constant Relieving factors: none Exacerbating factors: none Associated symptoms: denies other symptoms Treatments prior to arrival: none Related Data Home Medications ?Medication ?Instructions ?Recorded ?Confirmed ?Last Taken ?Type rizatriptan 5 mg tablet See Rx Instructions PO .COMPLEX 04/23/23 08/05/24 Unknown History topiramate 25 mg tablet 25 mg PO DAILY 04/23/23 08/05/24 Unknown History bupropion HCl 150 mg 24 hr tablet, 150 mg PO QAM 06/10/24 08/05/24 Unknown History extended release (Wellbutrin XL) sertraline 100 mg tablet 100 mg PO DAILY 06/10/24 08/05/24 Unknown History acetazolamide BYMOUTH 2XD 06/17/24 08/05/24 Unknown History Allergies Allergy/AdvReac Type Severity Reaction Status Date / Time No Known Allergies Allergy Verified 12/01/24 06:10 Review of Systems Review of Systems: All systems reviewed & are unremarkable except as noted in HPI and below Constitutional: Constitutional: Reports no additional constitutional com plaints Eyes: Eyes: Reports no additional eye complaints ENT: Reports system reviewed and no additional complaints, except as documented Cardiovascular: Cardiovascular: Reports no additional cardiovascular complaints Respiratory: Respiratory: Reports no additional respiratory complaints Gastrointestinal: Gastrointestinal: Reports no additional gastrointestinal complaints Musculoskeletal: Musculoskeletal: Reports no additional musculoskeletal complaints [facility] Past Medical History Medical History Glaucoma Vaginal odor IUD surveillance Laryngopharyngeal reflux Osteoporosis Anxiety History of airborne allergies History of uterine fibroid ??? Per pt History of pulmonary embolism From OCP's Anemia Asthma Surgical History Surgical History Lutz teeth removed Family History Family History Mother Asthma Diabetes mellitus Hypertension Heart disease Cerebrovascular accident Thyroid disorder Depression Sibling Asthma Diabetes mellitus Depression Hypertension Heart disease Grandparent Asthma Hypertension Father Hypertension Social History Social History Smoking status: Never smoker Alcohol intake: current Alcohol use details: Rarely, special occasions Substance use: never Substance use type: does not use Lack of Transportation: No Lack of Food: Never True Current Housing: I Have Housing Concerned About Future Housing: No Difficulty Paying Gas/Electric Bills: No Difficulty Paying for Meds: No Currently Unemployed: No Education: Bachelor's Degree Difficulty w/ Childcare or Family Care: No Living arrangements: alone Gender identity (if verbalized by the patient): Female Exam Narrative: GENERAL: Well-appearing, well-nourished, and in no acute distress. HEAD: Normocephalic, atraumatic. EYES: PERRLA and EOMI. ENT: Nares clear, no rhinorrhea or epistaxis. Mucous membranes moist. NECK: Supple. CHEST: Clear to auscultation. No respiratory distress. HEART: Regular rate and rhythm. No murmur heard. Normal peripheral pulse. EXTREMITIES: Normal range of motion. No edema. SKIN: Warm, dry, no rash. NEURO: No focal deficits. Alert and oriented x3. PSYCH: Normal mood and affect. Course Course Emergency Course: Her physical exam is unremarkable this pain is chronic in nature I recommended her to follow up with her oral maxillary surgery our neurologist at [facility] as she has seen before. I advised her to continue home medication there is nothing much I can offer here in the ER other than outpatient follow-up. Vital Signs Vital signs: Vital Signs Temperature 36.8 C 12/01/24 06:01 Pulse Rate 73 12/01/24 06:01 Respiratory Rate 18 12/01/24 06:01 Blood Pressure 126/87 12/01/24 06:01 Pulse Oximetry 100 12/01/24 06:01 Oxygen Delivery Room Air 12/01/24 06:01 Temperature 36.8 C 12/01/24 06:06 Pulse Rate 73 12/01/24 06:06 Respiratory Rate 18 12/01/24 06:06 Blood Pressure 126/78 12/01/24 06:06 Pulse Oximetry 100 12/01/24 06:06 Oxygen Delivery Room Air 12/01/24 06:06 Medical Decision Making Vital Signs Vital Signs: Vital Signs Temperature 36.8 C 12/01/24 06:01 Pulse Rate 73 12/01/24 06:01 Respiratory Rate 18 12/01/24 06:01 Blood Pressure 126/87 12/01/24 06:01 Pulse Oximetry 100 12/01/24 06:01 Oxygen Delivery Room Air 12/01/24 06:01 Temperature 36.8 C 12/01/24 06:06 Pulse Rate 73 12/01/24 06:06 Respiratory Rate 18 12/01/24 06:06 Blood Pressure 126/78 12/01/24 06:06 Pulse Oximetry 100 12/01/24 06:06 Oxygen Delivery Room Air 12/01/24 06:06 Discharge Plan Discharge Clinical Impression: Chronic facial pain Patient Disposition: Home, Self-Care Condition: Stable Instructions: Chronic Pain (ED) Additional Instructions: Continue home medications, follow up with the oral maxillary surgery at [facility] call [phone] for an appointment Patient Language: Nepalese Prescriptions: No Action doxycycline hyclate 100 mg tablet 100 mg PO DAILY Qty: 14 1RF Rx Instructions: take 1 tablet daily rizatriptan 5 mg tablet See Rx Instructions PO .COMPLEX Rx Instructions: take 1 tablet at onset of headache; if no relief, may repeat 1 tablet after at least 2 hrs PO topiramate 25 mg tablet 25 mg PO DAILY albuterol sulfate 90 mcg/actuation HFA aerosol inhaler 2 puff inhalation Q4H PRN (Reason: shortness of breath or wheezing) Qty: 8.5 0RF sertraline 100 mg tablet 100 mg PO DAILY bupropion HCl [Wellbutrin XL] 150 mg tablet extended release 24 hr 150 mg PO QAM acetazolamide 500 mg BYMOUTH 2XD hydrocortisone 1 % ointment See Rx Instructions .ROUTE .COMPLEX Qty: 28.35 0RF Dose Instruction: APPLY TOPICALLY TO THE AFFECTED AREA THREE TIMES DAILY NEEDED FOR RASH Rx Instructions: APPLY TOPICALLY TO THE AFFECTED AREA THREE TIMES DAILY NEEDED FOR RASH Follow-up/Referrals: Suzanna Soto APRN [Primary Care Provider] - Stand Alone Forms: Work/School Release IP Time of Disposition: 07:44
--- OUTSIDE RECORDS SUMMARY | 2024-12-01 08:15 | XMS_ITS | Referral Summary ---
Author Organization [facility] Address [address] [place] [address] Care Team Providers Care Historical Interpreter Name Role Phone No, Physician Primary Care Provider [phone] Encounters Date Type Department Care Team Description 10/13/2024 4:41 PM PATENTS EXAMINER - 10/13/2024 11:59 PM PATENTS EXAMINER Hospital Encounter [facility] ([facility]) [address] [place] [phone] Discharge Disposition: Discharge to home or self care 10/13/2024 4:39 PM PATENTS EXAMINER - 10/13/2024 11:59 PM PATENTS EXAMINER Hospital Encounter [facility] ([facility]) [address] [place] [phone] Discharge Disposition: Discharge to home or self care 10/13/2024 4:37 PM PATENTS EXAMINER - 10/13/2024 11:59 PM PATENTS EXAMINER Hospital Encounter [facility] ([facility]) [address] [place] [phone] Discharge Disposition: Discharge to home or self care 10/13/2024 4:36 PM PATENTS EXAMINER - 10/13/2024 11:59 PM PATENTS EXAMINER Hospital Encounter [facility] ([facility]) [address] [place] [address] Discharge Disposition: Discharge to home or self care 10/08/2024 10:52 AM PATENTS EXAMINER - 10/08/2024 11:59 PM PATENTS EXAMINER Hospital Encounter [facility] ([facility]) [address] [place] [phone] Discharge Disposition: Discharge to home or self care 10/08/2024 10:50 AM PATENTS EXAMINER - 10/08/2024 11:59 PM PATENTS EXAMINER Hospital Encounter [facility] ([facility]) [address] [place] [phone] Discharge Disposition: Discharge to home or self care 10/08/2024 10:41 AM PATENTS EXAMINER - 10/08/2024 11:59 PM PATENTS EXAMINER Hospital Encounter [facility] ([facility]) [address] [place] [address] Discharge Disposition: Discharge to home or self care 10/07/2024 3:30 PM PATENTS EXAMINER Imaging Exam [facility] [address] [place] [phone] 10/07/2024 3:10 PM PATENTS EXAMINER Imaging Exam [facility] [address] [place] [phone] 10/07/2024 3:20 PM PATENTS EXAMINER Imaging Exam [facility] [address] [place] [phone] 10/07/2024 2:30 PM PATENTS EXAMINER Office Visit [facility] [address] [place] [phone] Eligio Payne MD Chronic migraine w/o aura [...] on file Legal Sex Female 9:08 PM PATENTS EXAMINER Gender Identity Not on file Sexual Orientation Not on file Last Filed Vital Signs Vital Sign Reading Time Taken Comments Blood Pressure 112/76 10/19/2021 10:44 AM PATENTS EXAMINER Pulse 76 09/26/2021 8:40 PM PATENTS EXAMINER Temperature 36.8 ??C (98.2 ??F) 09/26/2021 3:57 PM CS T Respiratory Rate 18 09/26/2021 8:40 PM PATENTS EXAMINER Oxygen Saturation 100% 09/26/2021 8:40 PM PATENTS EXAMINER Inhaled Oxygen Concentration - - Weight 106.6 kg (235 lb) 10/19/2021 10:44 AM PATENTS EXAMINER Height 180.3 cm (5' 10.98 ) 10/19/2021 10:44 AM PATENTS EXAMINER Body Mass Index 32.79 10/19/2021 10:44 AM PATENTS EXAMINER Plan of Treatment Not on file Procedures Procedure Name Priority Date/Time Associated Diagnosis Comments NEURO CT OUTSIDE REFERENCE Routine 10/13/2024 4:41 PM PATENTS EXAMINER NEURO MR OUTSIDE REFERENCE Routine 10/13/2024 4:39 PM PATENTS EXAMINER XR TRANSFER OF OUTSIDE FILMS Routine 10/13/2024 4:37 PM PATENTS EXAMINER NEURO MR OUTSIDE REFERENCE Routine 10/13/2024 4:36 PM PATENTS EXAMINER NEURO MR OUTSIDE REFERENCE Routine 10/08/2024 10:52 AM PATENTS EXAMINER NEURO MR OUTSIDE REFERENCE Routine 10/08/2024 10:50 AM PATENTS EXAMINER NEURO MR OUTSIDE REFERENCE Routine 10/08/2024 10:41 AM PATENTS EXAMINER OCT, OPTIC NERVE - OU - BOTH EYES Routine 10/07/2024 3:59 PM PATENTS EXAMINER Pseudopapilledema of both optic discs OCT, RETINA - OU - BOTH EYES Routine 10/07/2024 3:59 PM PATENTS EXAMINER Pseudopapilledema of both optic discs FUNDUS PHOTOS/FAF - OU - BOTH EYES Routine 10/07/2024 2:30 PM PATENTS EXAMINER Pseudopapilledema of both optic discs HOLLIDAY VISUAL FIELD - OU - BOTH EYES Routine 10/07/2024 2:30 PM PATENTS EXAMINER Pseudopapilledema of both optic discs from Last 3 Months Results * Neuro CT Outside Reference (10/13/2024 4:41 PM PATENTS EXAMINER) Impressions [facility] - 10/13/2024 4:41 PM PATENTS EXAMINER These images are for Reference purposes only and have not been reviewed by [facility]. ??There will be no report generated by a [facility] Radiologist. Narrative [facility] - 10/13/2024 4:41 PM PATENTS EXAMINER EXAMINATION: ??Images For Reference Purposes Only Eligio Payne MD IMG CT PROCEDURES Fi nal Result Performing Organization Address [facility] de Phone Number [email or web address] * Neuro MR Outside Reference (10/13/2024 4:39 PM PATENTS EXAMINER) Impressions [facility] - 10/13/2024 4:39 PM PATENTS EXAMINER These images are for Reference purposes only and have not been reviewed by [facility]. ??There will be no report generated by a [facility] Radiologist. Narrative [facility] - 10/13/2024 4:39 PM PATENTS EXAMINER EXAMINATION: ??Images For Reference Purposes Only Eligio Payne MD IMG MRI PROCEDURES F inal Result Performing Organization Address [facility] de Phone Number [email or web address] * XR Outside Reference (10/13/2024 4:37 PM PATENTS EXAMINER) Impressions [facility] - 10/13/2024 4:37 PM PATENTS EXAMINER These images are for Reference purposes only and have not been reviewed by [facility]. ??There will be no report generated by a [facility] Radiologist. Narrative [facility] - 10/13/2024 4:37 PM PATENTS EXAMINER EXAMINATION: ??Images For Reference Purposes Only Eligio Payne MD IMG XR PROCEDURES Fi nal Result Performing Organization Address [facility] de Phone Number [email or web address] * Neuro MR Outside Reference (10/13/2024 4:36 PM PATENTS EXAMINER) Impressions [facility] - 10/13/2024 4:36 PM PATENTS EXAMINER These images are for Reference purposes only and have not been reviewed by [facility]. ??There will be no report generated by a [facility] Radiologist. Narrative [facility] - 10/13/2024 4:36 PM PATENTS EXAMINER EXAMINATION: ??Images For Reference Purposes Only Result [facility] Eligio Payne MD IMG MRI PROCEDURES F inal Result Performing Organization Address [facility] Co de Phone Number [email or web address] * Neuro MR Outside Reference (10/08/2024 10:52 AM PATENTS EXAMINER) Impressions [facility] - 10/08/2024 10:52 AM PATENTS EXAMINER These images are for Reference purposes only and have not been reviewed by [facility]. ??There will be no report generated by a [facility] Radiologist. Narrative [facility] - 10/08/2024 10:52 AM PATENTS EXAMINER EXAMINATION: ??Images For Reference Purposes Only Eligio Payne MD IMG MRI PROCEDURES F inal Result Performing Organization Address [facility] de Phone Number [email or web address] * Neuro MR Outside Reference (10/08/2024 10:50 AM PATENTS EXAMINER) Impressions [facility] - 10/08/2024 10:50 AM PATENTS EXAMINER These images are for Reference purposes only and have not been reviewed by [facility]. ??There will be no report generated by a [facility] Radiologist. Narrative [facility] - 10/08/2024 10:50 AM PATENTS EXAMINER EXAMINATION: ??Images For Reference Purposes Only Eligio Payne MD IMG MRI PROCEDURES F inal Result Performing Organization Address [facility] de Phone Number [email or web address] * Neuro MR Outside Reference (10/08/2024 10:41 AM PATENTS EXAMINER) Impressions [facility] - 10/08/2024 10:41 AM PATENTS EXAMINER These images are for Reference purposes only and have not been reviewed by [facility]. ??There will be no report generated by a [facility] Radiologist. Narrative [facility] - 10/08/2024 10:41 AM PATENTS EXAMINER EXAMINATION: ??Images For Reference Purposes Only Eligio Payne MD IMG MRI PROCEDURES F inal Result [facility] * OCT, Optic Nerve - OU - Both Eyes (10/07/2024 3:59 PM PATENTS EXAMINER) RNFL OS 95 micrometers CONTINUUM RNFL OD 99 micrometers CONTINUUM Anatomical Region Laterality Modality Head Other Narrative 10/08/2024 9:42 AM PATENTS EXAMINER Right Eye Reliability was good. Average RNFL thickness 99 micrometers. Left Eye Reliability was good. Average RNFL thickness 95 micrometers. Notes No signs of thinning or thickening both eyes (OU) Ivonne Foreman MD OPHTH TOMOGRAPHY Final Resu lt * OCT, Retina - OU - Both Eyes (10/07/2024 3:59 PM PATENTS EXAMINER) Central Macular Thickness OS 266 mircometers CONTINUUM Central Macular Thickness OD 270 micrometers CONTINUUM Anatomical Region Laterality Modality Head Other Narrative 10/08/2024 9:42 AM PATENTS EXAMINER Right Eye Quality was good. Macular thickness was 270 micrometers. Left Eye Quality was good. Macular thickness was 266 mircometers. Notes Normal OCT mac OU GCC without thinning OU; 81/80 Ivonne Foreman MD OPHTH TOMOGRAPHY Final Resu lt * Fundus Photos/FAF - OU - Both Eyes (10/07/2024 2:30 PM PATENTS EXAMINER) Anatomical Region Laterality Modality Head Fundus Photograp hy Narrative 10/08/2024 9:42 AM PATENTS EXAMINER Right Eye Quality was good. Left Eye [...] OU - Both Eyes (10/07/2024 2:30 PM PATENTS EXAMINER) Pattern Deviation OS 1.73 CONTINUUM Pattern Deviation OD 1.17 CONTINUUM Mean Deviation OS -1.06 CONTINUUM Mean Deviation OD -1.71 CONTINUUM Anatomical Region Laterality Modality Head Other Narrative 10/08/2024 9:41 AM PATENTS EXAMINER Right Eye Fixation was good. Cooperation was good. Reliability was good. Mean Deviation was -1.71. Pattern Deviation was 1.17. Left Eye Fixation was good. Cooperation was good. Reliability was good. Mean Deviation was -1.06. Pattern Deviation was 1.73. Notes Full OU Ivonne Foreman MD OPH VISUAL FIELD Final Re sult from Last 3 Months Insurance [facility] [employer] [place]ENE [place] [id number] [address] [place] K[place] Care Teams Historical Interpreter Relationship Specialty Start Date End Date No, Physician PCP - General 02/28/20
--- OUTSIDE RECORDS SUMMARY | 2024-12-01 08:15 | XMS_ITS | Encounter Summary ---
Author Organization [facility] Care Team Providers Care Agriculture Engineer Name Role Phone No, Physician Primary Care Provider [phone] Encounter Details Date Type Department Care Team (Latest Contact Info) Description 12/22/2018 Orders Only [facility] ProviderDale MD [address] [place] [phone] Social History Tobacco Use Types Packs/Day Years Used Date Smoking Tobacco: Never Assessed Comments Unknown Sex and Gender Information Value Date Recorded Sex Assigned at Not on file Legal Sex Female 9:08 PM CASING PULLER Gender Identity Not on file Sexual Orientation [...] MRSA Comment:thinks 5 years ago when in [place]. had iv antibiotics for days 08/05/2019 08/04/20192020 5:00 AM CDT documented as of this encounter Care Teams Agriculture Engineer Relationship Specialty Start Date End Date No, Physician PCP - General 02/28/20 documented as of this encounter
--- OUTSIDE RECORDS SUMMARY | 2024-12-01 08:15 | XMS_ITS | Clinical Summary ---
Author Organization [facility] Address [address] [place] [address] Care Team Providers Care Insurance Loss Assessor Name Role Phone Suzanna Soto ACADEMIC INTERN-CERTIFICATION ENGINEER Primary Care Provider + Source Comments [facility],non-owned Affiliates and Associated Physician Practices is amultiple site organization consisting of ambulatory clinics and hospital sitesin [place], [place], [place] and [place]. This disclosure is being madepursuant to the Care Everywhere program and may not contain all information available regarding this patient. Last updated 18.[facility] Allergies Active Allergy Reactions Criticality Noted Date [...] 09/07/2024 Refill [facility] - Neurology [address] [place] [address], [facility] [place] [phone] Simran Montes De Oca APRN-CNP Refill Request [...] age to complete this topic Care Teams Insurance Loss Assessor Relationship Specialty Start Date End Date Suzanna Soto APRN-CERTIFICATION ENGINEER [id number] [place] [phone] PCP - General 02/06/24
--- OUTSIDE RECORDS SUMMARY | 2024-12-01 08:15 | XMS_ITS | Clinical Summary ---
Author Organization [facility] Address [address] [place] [address] Care Team Providers Care Prep Manager Name Role Phone No, Physician Primary Care Provider [phone] Allergies Active Allergy Reactions Criticality Noted Date [...] Department Care Team Description 10/13/2024 4:41 PM IMPROVEMENT COORDINATOR - 10/13/2024 11:59 PM IMPROVEMENT COORDINATOR Hospital Encounter [facility] ([facility]) [address] [place] [phone] Discharge Disposition: Discharge to home or self care 10/13/2024 4:39 PM IMPROVEMENT COORDINATOR - 10/13/2024 11:59 PM IMPROVEMENT COORDINATOR Hospital Encounter [facility] ([facility]) [address] [place] [phone] Discharge Disposition: Discharge to home or self care 10/13/2024 4:37 PM IMPROVEMENT COORDINATOR - 10/13/2024 11:59 PM IMPROVEMENT COORDINATOR Hospital Encounter [facility] ([facility]) [address] [place] [address] Discharge Disposition: Discharge to home or self care 10/13/2024 4:36 PM IMPROVEMENT COORDINATOR - 10/13/2024 11:59 PM IMPROVEMENT COORDINATOR Hospital Encounter [facility] ([facility]) [address] [place] [phone] Discharge Disposition: Discharge to home or self care 10/08/2024 10:52 AM IMPROVEMENT COORDINATOR - 10/08/2024 11:59 PM IMPROVEMENT COORDINATOR Hospital Encounter [facility] ([facility]) [address] [place] [phone] Discharge Disposition: Discharge to home or self care 10/08/2024 10:50 AM IMPROVEMENT COORDINATOR - 10/08/2024 11:59 PM IMPROVEMENT COORDINATOR Hospital Encounter [facility] ([facility]) [address] [place] [phone] Discharge Disposition: Discharge to home or self care 10/08/2024 10:41 AM IMPROVEMENT COORDINATOR - 10/08/2024 11:59 PM IMPROVEMENT COORDINATOR Hospital Encounter [facility] ([facility]) [address] [place] [address] Discharge Disposition: Discharge to home or self care 10/07/2024 3:30 PM IMPROVEMENT COORDINATOR Imaging Exam [facility] [address] [place] [address] Outpatient Health [address] [place] [phone] 10/07/2024 3:20 PM IMPROVEMENT COORDINATOR Imaging Exam [facility] [address] [place] [phone] 10/07/2024 3:10 PM IMPROVEMENT COORDINATOR Imaging Exam [facility] [address] [place] [phone] 10/07/2024 2:30 PM IMPROVEMENT COORDINATOR Office Visit [facility] [address] [place] [phone] Eligio Payne MD Chronic migraine w/o aura [...] on file Legal Sex Female 9:08 PM IMPROVEMENT COORDINATOR Gender Identity Not on file Sexual Orientation Not on file Obstetrics History Last Filed Vital Signs Vital Sign Reading Time Taken Comments Blood Pressure 112/76 10/19/2021 10:44 AM IMPROVEMENT COORDINATOR Pulse 76 09/26/2021 8:40 PM IMPROVEMENT COORDINATOR Temperature 36.8 ??C (98.2 ??F) 09/26/2021 3:57 PM CS T Respiratory Rate 18 09/26/2021 8:40 PM IMPROVEMENT COORDINATOR Oxygen Saturation 100% 09/26/2021 8:40 PM IMPROVEMENT COORDINATOR Inhaled Oxygen Concentration - - Weight 106.6 kg (235 lb) 10/19/2021 10:44 AM IMPROVEMENT COORDINATOR Height 180.3 cm (5' 10.98 ) 10/19/2021 10:44 AM IMPROVEMENT COORDINATOR Body Mass Index 32.79 10/19/2021 10:44 AM IMPROVEMENT COORDINATOR Plan of Treatment Health Maintenance Due Date [...] CT OUTSIDE REFERENCE Routine 10/13/2024 4:41 PM IMPROVEMENT COORDINATOR NEURO MR OUTSIDE REFERENCE Routine 10/13/2024 4:39 PM IMPROVEMENT COORDINATOR XR TRANSFER OF OUTSIDE FILMS Routine 10/13/2024 4:37 PM IMPROVEMENT COORDINATOR NEURO MR OUTSIDE REFERENCE Routine 10/13/2024 4:36 PM IMPROVEMENT COORDINATOR NEURO MR OUTSIDE REFERENCE Routine 10/08/2024 10:52 AM IMPROVEMENT COORDINATOR NEURO MR OUTSIDE REFERENCE Routine 10/08/2024 10:50 AM IMPROVEMENT COORDINATOR NEURO MR OUTSIDE REFERENCE Routine 10/08/2024 10:41 AM IMPROVEMENT COORDINATOR OCT, OPTIC NERVE - OU - BOTH EYES Routine 10/07/2024 3:59 PM IMPROVEMENT COORDINATOR Pseudopapilledema of both optic discs OCT, RETINA - OU - BOTH EYES Routine 10/07/2024 3:59 PM IMPROVEMENT COORDINATOR Pseudopapilledema of both optic discs FUNDUS PHOTOS/FAF - OU - BOTH EYES Routine 10/07/2024 2:30 PM IMPROVEMENT COORDINATOR Pseudopapilledema of both optic discs HOLLIDAY VISUAL FIELD - OU - BOTH EYES Routine 10/07/2024 2:30 PM IMPROVEMENT COORDINATOR Pseudopapilledema of both optic discs from Last 3 Months Results * Neuro CT Outside Reference (10/13/2024 4:41 PM IMPROVEMENT COORDINATOR) Impressions [facility] - 10/13/2024 4:41 PM IMPROVEMENT COORDINATOR These images are for Reference purposes only and have not been reviewed by [facility]. ??There will be no report generated by a [facility] Radiologist. Narrative [facility] - 10/13/2024 4:41 PM IMPROVEMENT COORDINATOR EXAMINATION: ??Images For Reference Purposes Only Eligio Payne MD IMG CT PROCEDURES Fi nal Result [facility] * Neuro MR Outside Reference (10/13/2024 4:39 PM IMPROVEMENT COORDINATOR) Impressions [facility] - 10/13/2024 4:39 PM IMPROVEMENT COORDINATOR These images are for Reference purposes only and have not been reviewed by [facility]. ??There will be no report generated by a [facility] Radiologist. Narrative [facility] - 10/13/2024 4:39 PM IMPROVEMENT COORDINATOR EXAMINATION: ??Images For Reference Purposes Only Eligio Payne MD IMG MRI PROCEDURES F inal Result Performing Organization Address [facility] de Phone Number [facility] * XR Outside Reference (10/13/2024 4:37 PM IMPROVEMENT COORDINATOR) Impressions [facility] - 10/13/2024 4:37 PM IMPROVEMENT COORDINATOR These images are for Reference purposes only and have not been reviewed by [facility]. ??There will be no report generated by a [facility] Radiologist. Narrative [facility] - 10/13/2024 4:37 PM IMPROVEMENT COORDINATOR EXAMINATION: ??Images For Reference Purposes Only Eligio Payne MD IMG XR PROCEDURES Fi nal Result Performing Organization Address [facility] de Phone Number [facility] * Neuro MR Outside Reference (10/13/2024 4:36 PM IMPROVEMENT COORDINATOR) Impressions [facility] - 10/13/2024 4:36 PM IMPROVEMENT COORDINATOR These images are for Reference purposes only and have not been reviewed by [facility]. ??There will be no report generated by a [facility] Radiologist. Narrative [facility] - 10/13/2024 4:36 PM IMPROVEMENT COORDINATOR EXAMINATION: ??Images For Reference Purposes Only Eligio Payne MD IMG MRI PROCEDURES F inal Result Performing Organization Address [facility] de Phone Number [facility] * Neuro MR Outside Reference (10/08/2024 10:52 AM IMPROVEMENT COORDINATOR) Impressions [facility] - 10/08/2024 10:52 AM IMPROVEMENT COORDINATOR These images are for Reference purposes only and have not been reviewed by [facility]. ??There will be no report generated by a [facility] Radiologist. Narrative [facility] - 10/08/2024 10:52 AM IMPROVEMENT COORDINATOR EXAMINATION: ??Images For Reference Purposes Only Eliigo Payne MD IM MRI PROCEDURES F inal Result Performing Organization Address [facility] de Phone Number [facility] * Neuro MR Outside Reference (10/08/2024 10:50 AM IMPROVEMENT COORDINATOR) Impressions [facility] - 10/08/2024 10:50 AM IMPROVEMENT COORDINATOR These images are for Reference purposes only and have not been reviewed by [facility]. ??There will be no report generated by a [facility] Radiologist. Narrative [facility] - 10/08/2024 10:50 AM IMPROVEMENT COORDINATOR EXAMINATION: ??Images For Reference Purposes Only Eligio Payne MD [facility] MRI PROCEDURES F inal Result Performing Organization Address [facility] de Phone Number [facility] * Neuro MR Outside Reference (10/08/2024 10:41 AM IMPROVEMENT COORDINATOR) Impressions [facility] - 10/08/2024 10:41 AM IMPROVEMENT COORDINATOR These images are for Reference purposes only and have not been reviewed by [facility]. ??There will be no report generated by a [facility] Radiologist. Narrative [facility] - 10/08/2024 10:41 AM IMPROVEMENT COORDINATOR EXAMINATION: ??Images For Reference Purposes Only Eligio Payne MD [facility] MRI PROCEDURES F inal Result Performing Organization Address [facility] de Phone Number [facility] * OCT, Optic Nerve - OU - Both Eyes (10/07/2024 3:59 PM IMPROVEMENT COORDINATOR) RNFL OS 95 micrometers CONTINUUM RNFL OD 99 micrometers CONTINUUM Anatomical Region Laterality Modality Head Other Narrative 10/08/2024 9:42 AM IMPROVEMENT COORDINATOR Right Eye Reliability was good. Average RNFL thickness 99 micrometers. Left Eye Reliability was good. Average RNFL thickness 95 micrometers. Notes No signs of thinning or thickening both eyes (OU) us Ivonne Foreman MD OPHTH TOMOGRAPHY Final Resu lt * OCT, Retina - OU - Both Eyes (10/07/2024 3:59 PM IMPROVEMENT COORDINATOR) Central Macular Thickness OS 266 mircometers CONTINUUM Central Macular Thickness OD 270 micrometers CONTINUUM Anatomical Region Laterality Modality Head Other Narrative 10/08/2024 9:42 AM IMPROVEMENT COORDINATOR Right Eye Quality was good. Macular thickness was 270 micrometers. Left Eye Quality was good. Macular thickness was 266 mircometers. Notes Normal OCT mac OU GCC without thinning OU; 81/80 us Ivonne Foreman MD OPHTH TOMOGRAPHY Final Resu lt * Fundus Photos/FAF - OU - Both Eyes (10/07/2024 2:30 PM IMPROVEMENT COORDINATOR) Anatomical Region Laterality Modality Head Fundus Photograp hy Narrative 10/08/2024 9:42 AM IMPROVEMENT COORDINATOR Right Eye Quality was good. Left Eye [...] OU - Both Eyes (10/07/2024 2:30 PM IMPROVEMENT COORDINATOR) Pattern Deviation OS 1.73 CONTINUUM Pattern Deviation OD 1.17 CONTINUUM Mean Deviation OS -1.06 CONTINUUM Mean Deviation OD -1.71 CONTINUUM Anatomical Region Laterality Modality Head Other Narrative 10/08/2024 9:41 AM IMPROVEMENT COORDINATOR Right Eye Fixation was good. Cooperation was good. Reliability was good. Mean Deviation was -1.71. Pattern Deviation was 1.17. Left Eye Fixation was good. Cooperation was good. Reliability was good. Mean Deviation was -1.06. Pattern Deviation was 1.73. Notes Full OU Ivonne Foreman MD OPHTH VISUAL FIELD Final Re sult from Last 3 Months Insurance [facility] [place] [employer] Care Teams Prep Manager Relationship Specialty Start Date End Date No, Physician PCP - General 02/28/20
--- OUTSIDE RECORDS SUMMARY | 2024-12-01 08:15 | XMS_ITS | Clinical Summary ---
Author Organization [facility] [employer] [place] Address [address] [address] Care Team Providers Care Picker Operator Name Role Phone Unavailable Primary Care Provider [...] st Contact Info) Description 12/28/2024 9:40 AM SAFETY INTERN Office Visit [facility] [employer] [address] [place] [address] Health Maintenance Due Date Last Done Comments DTAP/TDAP/TD VACCINES (1 - Tdap) 01/13/2015 HEPATITIS B VACCINES (1 of 3 - 19+ 3-dose series) 01/13/2015 CERVICAL CANCER SCREENING 01/13/2017 INFLUENZA VACCINE (#1) 2024 HPV VACCINES Aged Out No longer eligi ble based on patient's age to complete this topic Insurance [employer] OPEN ACCESS * Guarantor: [employer] (C) Account Type Relation to Patient Date of Phone Billing Address Corporate Employer ATTN: JULIUS CAPPS [address] [address] [employer] OPEN [employer]ESS
--- OUTSIDE RECORDS SUMMARY | 2024-12-01 08:15 | XMS_ITS | Referral Summary ---
Author Organization [facility] Address [address] [place] [address] Care Team Providers Care Policy Service Coordinator Name Role Phone SotoSuzanna delacruz PADMINI Primary Care Provider + Source Comments [facility],non-owned Affiliates and Associated Physician Practices is amultiple site organization consisting of ambulatory clinics and hospital sitesin [place], [place], [place] and [place]. This disclosure is being madepursuant to the Care Everywhere program and may not contain all information available regarding this patient. Last updated 18.[facility] Encounters Date Type Department Care Team Description 09/07/2024 Refill [facility] - Neurology [address] [place] [phone] Simran Montes De Oac APRN-CNP Refill Request from Last 3 Months [...] of Treatment Not on file Care Teams Policy Service Coordinator Relationship Specialty Start Date End Date Suzanna Soto APRN-RAMÓN [address] [place] [id number] [facility] - General 02/06/24
--- OUTSIDE RECORDS SUMMARY | 2024-12-01 08:15 | XMS_ITS | Patient Health Summary ---
Author Organization [facility] Address [address] [place] [address] Care Team Providers Care Bottle Filler Name Role Phone Suzanna Soto LACHELLE-DIRECTOR SEARCH MARKETING STRATEGIES Primary Care Provider + Note from [facility],non-owned Affiliates and Associated Physician Practices is amultiple site organization consisting of ambulatory clinics and hospital sitesin [place], [place], [place] and [place]. This disclosure is being madepursuant to the Care Everywhere program and may not contain all information available regarding this patient. Last updated 18.[facility] Allergies * Seasonal(Cough,Eye Discomfort,Eye Itching,Eye Redness,Headache,Itching, Shortness [...] the original result were not included. OCT Adams Nerve - no significant swelling/edema or thinning of RNFL OU. Avg 102 OD, 103 OS. OCT Adams Macula - normal retinal layers without disruption [...] DATE/TIME OF EXAM: ??07/04/2024 1:56 PM, LOCATION [facility] INDICATION: H47.10: Papilledema ADDITIONAL CLINICAL INFORMATION: Ordering [...] CONT, DATE/TIME OF EXAM: 07/04/2024 1:56 PM,LOCATION [facility] INDICATION: H47.10: Papilledema ADDITIONAL CLINICAL INFORMATION: Ordering [...] DATE/TIME OF EXAM: ??07/04/2024 1:56 PM, LOCATION [facility] INDICATION: H47.10: Papilledema ADDITIONAL CLINICAL INFORMATION: Ordering [...] CONT, DATE/TIME OF EXAM: 07/04/2024 1:56 PM,LOCATION [facility] INDICATION: H47.10: Papilledema ADDITIONAL CLINICAL INFORMATION: Ordering [...] DATE/TIME OF EXAM: ??07/04/2024 1:56 PM, LOCATION [facility] INDICATION: H47.10: Papilledema ADDITIONAL CLINICAL INFORMATION: Ordering [...] CONT, DATE/TIME OF EXAM: 07/04/2024 1:56 PM,LOCATION [facility] INDICATION: H47.10: Papilledema ADDITIONAL CLINICAL INFORMATION: Ordering [...] of2 resultswithin the time period is included. [facility] Creatinine POCT 0.58 0.30 - 1.30 mg/dL 07/04/2024 12:58 PM [facility] Comment:Range ok for MRI eGFR >90 >=90 mL/min/1.7 3 m2 07/04/2024 12:58 PM [facility] Blood BLOOD SPECIMEN / Unknown 07/04/2024 12:31 PM CDT 07/04/2024 12:58 PM CDT Pieter Knott MD LAB - POINT OF CARE ORDERABLES Performing Organization Address City/State/[facility] Co de Phone Number [facility] [address] [place] [address], [facility] [phone] * (ABNORMAL) CBC W AUTO DIFFERENTIAL (05/26/2024 7:23 AM CDT) [facility] WBC 7.7 4.0 - 10.7 x10E9/L 05/26/2024 7:39 AM [facility] RBC Count 4.88 3.90 - 5.20 x10E12/L 05/26/2024 7:39 AM [facility] Hemoglobin 12.6 11.9 - 15.8 g/dL 05/26/2024 7:39 AM [facility] Hematocrit 39.0 34.8 - 46.1 % 05/26/2024 7:39 AM [facility] MCV 79.9(L) 80.0 - 98.0 fL 05/26/2024 7:39 AM [facility] MCH 25.8(L) 26.7 - 33.6 pg 05/26/2024 7:39 AM [facility] MCHC 32.3 31.7 - 36.3 g/dL 05/26/2024 7:39 AM [facility] RDW-CV 14.6 11.3 - 14.8 % 05/26/2024 7:39 AM [facility] Platelet Count 233 150 - 420 x10E9/L 05/26/2024 7:39 AM [facility] MPV 9.3 7.8 - 11.4 fL 05/26/2024 7:39 AM [facility] Neutrophil % 59.2 41.0 - 74.0 % 05/26/2024 7:39 AM [facility] Lymphocyte % 30.7 17.0 - 47.0 % 05/26/2024 7:39 AM [facility] Monocyte % 7.6 3.0 - 11.0 % 05/26/2024 7:39 AM [facility] Eosinophil % 1.7 0.0 - 7.0 % 05/26/2024 7:39 AM [facility] Basophil % 0.7 0.0 - 1.6 % 05/26/2024 7:39 AM [facility] Immature Granulocytes % 0.1 0.0 - 1.0 % 05/26/2024 7:39 AM [facility] Neutrophil Absolute 4.55 1.60 - 7.50 x10E9/L 05/26/2024 7:39 AM [facility] Lymphocyte Absolute 2.36 1.00 - 4.40 x10E9/L 05/26/2024 7:39 AM [facility] Monocyte Absolute 0.58 0.15 - 1.00 x10E9/L 05/26/2024 7:39 AM [facility] Eosinophil Absolute 0.13 0.00 - 0.60 x10E9/L 05/26/2024 7:39 AM [facility] Basophil Absolute 0.05 0.00 - 0.13 x10E9/L 05/26/2024 7:39 AM [facility] Blood BLOOD SPECIMEN / Unknown Venipuncture / Unknown 05/26/2024 7:23 AM T 05/26/2024 7:29 AM [facility] Jasper Jade MD LAB - HEMATOLOGY ORD ERABLES [facility] [address] [place] [address], [facility] [phone] * (ABNORMAL) COMPREHENSIVE METABOLIC PANEL (05/26/2024 7:[address] [facility]) BUN 13 7 - 26 mg/dL 05/26/2024 7:56 AM [facility] Creatinine 0.97(H) 0.56 - 0.96 mg/dL 05/26/2024 7:56 AM [facility] Sodium 137 136 - 145 mmol/L 05/26/2024 7:56 AM [facility] Potassium 3.9 3.5 - 4.5 mmol/L 05/26/2024 7:56 AM [facility] Chloride 106 98 - 107 mmol/L 05/26/2024 7:56 AM [facility] CO2 27 22 - 29 mmol/L 05/26/2024 7:56 AM [facility] Glucose 96 70 - 115 mg/dL 05/26/2024 7:56 AM [facility] Calcium 8.6 8.4 - 10.2 mg/dL 05/26/2024 7:56 AM [facility] Protein Total 7.0 6.0 - 8.3 g/dL 05/26/2024 7:56 AM [facility] Albumin 3.9 3.4 - 5.0 g/dL 05/26/2024 7:56 AM [facility] Bilirubin Total 0.5 0.2 - 1.2 mg/dL 05/26/2024 7:56 AM [facility] Alkaline Phosphatase 43 40 - 150 U/L 05/26/2024 7:56 AM [facility] ALT 24 5 - 55 U/L 05/26/2024 7:56 AM [facility] AST 23 5 - 34 U/L 05/26/2024 7:56 AM [facility] Anion Gap 4(L) 6 - 16 05/26/2024 7:56 AM [facility] BUN/Creatinine Ratio 13 7 - 23 05/26/2024 7:56 AM [facility] Osmolality Calculated 284 275 - 295 mOsm/kg 05/26/2024 7:56 AM [facility] Albumin/Globulin Ratio 1.3 1.1 - 2.3 05/26/2024 7:56 AM CDT [facility] eGFR by CKD-EPI 82(L) >=90 mL/min/1.7 3 m2 05/26/2024 7:56 AM CDT [facility] Blood BLOOD SPECIMEN / Unknown Venipuncture / Unknown 05/26/2024 7:23 AM CDT 05/26/2024 7:29 AM CDT Jasper Jade MD LAB - CHEMISTRY GLORIA VEGA Performing Organization Address City/[facility]/ZIP Co de Phone Number [address] [address], [facility] [phone] * (ABNORMAL) CELL COUNT W DIFFERENTIAL CSF (05/22/2024 12:54 PM CDT) Tube Number [id number] 05/22/2024 1:24 PM CDT [facility] Xanthochromia ABSENT ABSENT 05/22/2024 1:24 PM CDT [facility] CSF Appearance CLEAR 05/22/2024 1:24 PM CDT [facility] CSF Color COLORLESS 05/22/2024 1:24 PM CDT [facility] Total Nucleated Cells CSF 3 <=5 x10E6/L 05/22/2024 1:24 PM CDT [facility] Comment:No differential perf ormed per procedure RBC Count CSF 52(H) <1 x10E6/L 05/22/2024 1:24 PM CDT [facility] Cerebral spinal fluid CEREBROSPINAL FLUID SPECIMEN / Unknown Collection / Unknown 05/22/2024 12:54 PM CDT 05/22/2024 1:03 PM CDT Pieter Knott MD LAB - BODY FLUID ORD ZENA [address] [address], [place] [phone] * PROTEIN CSF (05/22/2024 12:54 PM CDT) Protein CSF 17 15 - 45 mg/dL 05/22/2024 5:41 PM CDT [facility] Cerebral spinal fluid CEREBROSPINAL FLUID SPECIMEN / Unknown Collection / Unknown 05/22/2024 12:54 PM CDT 05/22/2024 1:03 PM CDT Pieter Knott MD LAB - BODY FLUID ORD ERABLES Performing Organization Address City/[facility]/ZIP Co de Phone Number [address] [address], [facility] [phone] * GLUCOSE CSF (05/22/2024 12:54 PM CDT) Glucose CSF 48 40 - 70 mg/dL 05/22/2024 1:29 PM CDT [facility] Cerebral spinal fluid CEREBROSPINAL FLUID SPECIMEN / Unknown Collection / Unknown 05/22/2024 12:54 PM CDT 05/22/2024 1:03 PM CDT Pieter Knott MD LAB - BODY FLUID ORD ERABLES Performing Organization Address City/[facility]/ZIP Co de Phone Number [address] [address], [facility] [phone] * FL LUMBAR PUNCTURE (05/22/2024 12:43 PM CDT) Anatomical Region Laterality Modality Spine Radiographic Radha ging 05/22/2024 1:10 PM CDT Impressions 05/22/2024 2:52 PM CDT IMPRESSION: 1. Successful lumbar puncture under fluoroscopic guidance at L4-5. The report is dictated by Estevan Herndon MD, (residential program worker) IDaysi MD have personally reviewed and interpreted this examination/study. > Interpreting Provider: Daysi El MD on 05/22/2024 2:52 PM Narrative 05/22/2024 2:52 PM CDT PROCEDURE: ??FL LUMBAR PUNCTURE, DATE/TIME OF EXAM: ??05/22/2024 12:56 PM, LOCATION ??[facility] INDICATION: H47.10: Papilledema EXAMINATION: Diagnostic lumbar puncture [...] The patient was then transferred to the plant health care technician unit for further observation and 2 hrs of bedrest. OPENING PRESSURE: Prone position: [id number]; Left lateral decubitus position: [id number]. FLUOROSCOPY TIME: 53.6 Procedure Note Daysi El MD - 05/22/2024 PROCEDURE: FL LUMBAR PUNCTURE, DATE/TIME OF EXAM: 05/22/2024 12:56 PM, LOCATION [facility] INDICATION: H47.10: Papilledema EXAMINATION: Diagnostic lumbar puncture [...] The patient was then transferred to the plant health care technician unit for further observation and 2 hrs of bedrest. OPENING PRESSURE: Prone position: [id number]; Left lateral decubitusposition: [id number]. FLUOROSCOPY TIME: 53.6 IMPRESSION: 1. Successful lumbar puncture under fluoroscopic guidance at L4-5. The report is dictated by Estevan Herndon MD, (residential program worker) I, Daysi El MD have personally reviewed and interpreted this examination/study. > Interpreting Provider: Daysi El MD on 05/22/2024 2:52 PM Pieter Knott MD FLUOROSCOPY ORDERABL ES * HCG URINE QUALITATIVE - POCT (IP) INTERFACED (05/22/2024 10:31 AM CDT) HCG Qual Urine Negative Negative 05/22/2024 10:38 AM CDT [facility] Urine URINE / Unknown 05/22/2024 1 0:31 AM CDT 05/22/2024 10:38 AM CDT Pieter Knott MD LAB - POINT OF CARE ORDERABLES [address] [address], [place] [phone] * HCG URINE QUAL POCT NOTIFICATION (05/22/2024 10:24 AM CDT) Comment Notification Label Only - See Separate Report 05/22/2024 11:31 AM CDT [facility] Urine URINE / Unknown 05/22/2024 1 0:24 AM CDT 05/22/2024 10:28 AM CDT Pieter Knott MD LAB - URINALYSIS ORD ERABLES Performing Organization Address City/[facility]/ZIP Co de Phone Number [address] [address], [place] [phone] * PROPHYLAXIS RETINA DETACH PHOTOCOAG OS (05/15/2024 12:58 PM CDT) Anatomical Region Laterality Modality Head Other Narrative 05/15/2024 12:58 PM CDT Table formatting from the original result was not included. [facility] Ophthalmology Procedure Note 05/14/2024 Patient: Yovana White [...] from the original result was not included. [facility] Ophthalmology Procedure Note 05/07/2024 Patient: Yovana White [...] DATE/TIME OF EXAM: ??03/21/2024 5:22 PM, LOCATION ??[facility] INDICATION: G50.0: Trigeminal neuralgia G44.59: Other complicated [...] DATE/TIME OF EXAM: 03/21/2024 5:22 PM, LOCATION [facility] INDICATION: G50.0: Trigeminal neuralgia G44.59: Other complicated [...] 03/24/2024 8:37 AM Simran Montes De Oca APRN-DIRECTOR SEARCH MARKETING STRATEGIES MR ORDERABLES * CT HEAD WO CONTRAST (10/29/2022 6:46 AM SENIOR SQL DBA) Anatomical Region Laterality Modality Head Computed Tomogra phy 10/30/2022 8:03 AM [employer]IOR [employer] Impressions 10/30/2022 1:08 PM [employer]IOR [employer] IMPRESSION: No acute intracranial abnormality. Daysi Flynn MD have personally reviewed and interpreted this examination/study. > Interpreting Provider: Daysi El MD on 10/30/2022 1:08 PM Narrative 10/30/2022 1:08 PM [employer] PROCEDURE: ??CT HEAD WO CONTRAST, DATE/TIME OF EXAM: ??10/29/2022 6:46 AM, LOCATION ??[facility] INDICATION: G44.59: Other complicated headache syndrome COMPARISON: [...] DATE/TIME OF EXAM: 10/29/2022 6:46 AM, LOCATION [facility] INDICATION: G44.59: Other complicated headache syndrome COMPARISON: [...] 10/30/2022 1:08 PM Simran Montes De Oca PALLET STONE INSERTER-DIRECTOR SEARCH MARKETING STRATEGIES CT ORDERABLES * XR LUMBAR SPINE 2 OR 3VW (09/06/2022 1:12 PM SENIOR SQL DBA) Anatomical Region Laterality Modality Spine Radiographic Radha ging 09/06/2022 1:19 PM SENIOR [employer] D[employer] Impressions 09/06/2022 1:20 PM S[employer]IOR [employer] IMPRESSION: 1. ??L5-S1 chronic degenerative disc disease > Interpreting Provider: Julio Amezcua MD on 09/06/2022 1:20 PM Narrative 09/06/2022 1:20 PM SENIOR [employer] PROCEDURE: ??XR LUMBAR SPINE 2 OR 3VW, DATE/TIME OF EXAM: ??09/06/2022 1:13 PM, LOCATION ??[facility] INDICATION: M54.50: Low back pain, unspecified ADDITIONAL [...] 3VW, DATE/TIME OF EXAM: :13 PM, LOCATION [facility] INDICATION: M54.50: Low back pain, unspecified ADDITIONAL [...] MD DIAGNOSTIC IMAGING O RDERABLES Care Teams Bottle Filler Relationship Specialty Start Date End Date Suzanna Soto APRN-RAMÓN [address] [place] [phone] PCP - General 02/06/24
--- OUTSIDE RECORDS SUMMARY | 2024-12-01 08:15 | XMS_ITS | Clinical Summary ---
Author Organization [facility] Address [address] [place] [address]. [place] [address] [place] [address] Care Team Providers Care Train Attendant Name Role Phone New Referring, Provider Primary [...] topic Insurance GENERIC - COMMERCIAL Care Teams Train Attendant Relationship Specialty Start Date End Date New Referring, Provider PCP - General UNKNOWN PHYSICIAN SPECIALTY 06/01/19
== END 2024-12-01 08:08 | disposition home or self-care (01) ==
LOC: ANHED 08:06
PROVIDERS: Emergency Provider Family Medicine; PCP Nurse Practitioner Family
DX: R51.9 Headache, unspecified (principal); G89.29 Other chronic pain; J45.909 Unspecified asthma, uncomplicated; H40.9 Unspecified glaucoma; M81.0 Age-related osteoporosis without current pathological fracture; Z86.711 Personal history of pulmonary embolism; Z86.2 Personal history of diseases of the blood and blood-forming organs and certain disorders involving the immune mechanism; Z79.899 Other long term (current) drug therapy
CPT/HCPCS: 99281

== ENCOUNTER 2024-12-18 10:21 | Outpatient (CLI) | payer OTHER, SELFPAY ==
--- NOTE | ~2024-12-18 | CT_ITS ---
EXAMINATION: CT soft tissue neck w con DATE: 12/18/2024 11:02 INDICATION: Right mandibular sialoadenitis. TECHNIQUE: Computed tomography (CT) of the neck was performed with 75 mL Omnipaque-350 intravenous co ntrast. Automated exposure control and iterative reconstruction technique were employed. The dose-corinne gth product was 363.85 mGy-cm. COMPARISON: None FINDINGS: There is mucosal thickening in the paranasal sinuses. There is no sialolith. The major sali vary glands are unremarkable. A skin marker overlies the right submandibular gland. There are no path ologically enlarged lymph nodes. The mastoid air cells are normal. There is mild cervical spondylosis . IMPRESSION: 1. Unremarkable major salivary glands. No sialolith. Reviewed, dictated and finalized at location A. BOSS
== END 2024-12-18 10:22 | disposition home or self-care (01) ==
PROVIDERS: PCP Nurse Practitioner Family; Visit Provider Otolaryngology
DX: K11.23 Chronic sialoadenitis (principal); K14.0 Glossitis
CPT/HCPCS: 70491; Q9967

== ENCOUNTER 2025-05-10 14:54 | Outpatient (CLI) | payer OTHER, SELFPAY ==
--- OUTSIDE RECORDS SUMMARY | 2025-05-10 15:00 | XMS_ITS | Clinical Summary ---
Author Organization [facility] Address [address] [place] [address] Care Team Providers Care Sous Chef Kitchen Manager Name Role Phone New Referring, Provider Primary [...] 56 06/01/2019 2:39 PM CDT Temperature 36.7 C (98.1 F) 06/01/2019 2:39 PM CDT Respiratory Rate 20 06/01/2019 2:39 PM CDT Oxygen Saturation 100% 06/01/2019 2:41 PM CDT Inhaled Oxygen Concentration - - Weight 81.2 kg (179 lb) 06/01/2019 2:39 PM CDT Height 180.3 cm (5' 11) 06/01/2019 2:39 PM CDT Body Mass Index [...] Vaccine ( - 2023-2 5 season) 2024 HPV Vaccines Aged Out No longer eligi ble based on patient's age to complete this topic Meningococcal B Vaccine Aged Out No l onger eligible based on patient's age to complete this topic Meningococcal Vaccine Aged Out No arianna alexandrea eligible based on patient's age to complete this topic Pneumococcal Vaccine: Pediat rics (0 to 5 Years) and At-Risk Patients (6 to 49 Years) Aged Out No longer eligible b ased on patient's age to complete this topic RSV Immunizations Under 20 Months Aged Out No longer eligible based on patient's age to complete this topic Insurance GENERIC - COMMERCIAL Care Teams Sous Chef Kitchen Manager Relationship Specialty Start Date End Date New Referring, Provider PCP - General UNKNOWN PHYSICIAN SPECIALTY 06/01/19
--- OUTSIDE RECORDS SUMMARY | 2025-05-10 15:00 | XMS_ITS ---
Author Organization [facility] [employer] [facility] Address [facility] [address] [address] Care Team Providers Care Cripple Worker Name Role Phone Yesenia Mckenzie Unavailable [phone] Maribell Castro Nikolas [phone] REASON FOR VISIT Therapy Social History Sex Assigned At : Social History Observation Description Sex Assigned At Unknown Encounters Encounter Location Date Provider Diagnosis [facility] [employer] [place] [address] [facility] [address] [address] 04/26/2025 Maribell Castro Plan Of Treatment Next Appt Details Provider Name:Maribell Castro, 06/02/2025 03:00:00 PM, [facility] [address], [place] [address], [place], [address], Progress Notes * ANTWON KEBEDE EDOB:1994 (30 yo F)Acc No.[id number]:04/26/2025 Patient: Marcio ANTWON PEREZ Provider: Heena CASTRO LCSW :1995 A ge:30 Y S ex:Female Date:04/26/2025 Address:[address] [place] [address] [address] [place] [id number] Data: * Chief Complaints: * 1 . Therapy. Assessment: Plan: * Treatment: * Billing Information: * Visit Code: * Procedure Codes: * Electronic signature of Maribell Castro LCSW on 05/10/2025 at 02:59 PM CDT Sign off status: Pending Signatures: No Ad Hoc Signature Added * Provider: Heena CASTRO LCSW Date: 0 04/26/2025 Generated for Colin anand/Jani/Tian on: 0 05/10/2025 02:59 PM CDT
--- OUTSIDE RECORDS SUMMARY | 2025-05-10 15:00 | XMS_ITS | Patient Health Record ---
Author Organization [facility] [employer] [facility] Address [address] [place] [address] Care Team Providers Care Simulation Specialist Name Role Phone Yesenia Mckenzie Unavailable [phone] Maribell Veronica Unavailable [phone] Allergies No Known Allergies Reason For Referral No Information Medications Medication SIG (Take, Route, Frequency, Duration) Notes Start Date End Date Status hydrOXYzine HCl 10 MG 1 tablet Orally three times a day; Duration: 30 days 04/29/2024 Active Topiramate 25 MG Oral 02/26/2024 Un known LIDOCAINE/ANTACID/WAL -DRYL 111 *Reorder from [employer]terity for eRx and Interaction Alerts* 02/26/2024 Unknown buPROPion HCl ER (XL) 300 MG 1 tablet in the morning Orally Once a day; Duration: 90 days Active OXcarbazepine 600 MG Oral 02/26/2024 Unknown Fluticasone Propionate Diskus 50 MCG/ACT Inhalation *Reorder from Exterity for eRx and Interaction Alerts* 02/26/2024 Unknown traZODone HCl 50 MG 1 tablet at bedtime as needed Oral Once a day; Duration: 90 days 02/26/2024 Active Gabapentin 100 MG Oral 02/26/2024 U nknown Rizatriptan Benzoate 5 MG Oral 02/26/2024 Unknown MIRENA 21 MCG/24 HR (UP TO 8 YEARS) 52 MG INTRAUTERINE DEVICE *Reorder from Exterity for eRx and Interaction Alerts* 02/26/2024 Unknown Sertraline HCl 50 MG 1.5 tablet Oral Once a day; Duration: 90 days Active Social History Tobacco Use: Social History Observation Description Date Details (start date - stop date) Never Smoker NA - NA Sex Assigned At : Social History Observation Description Sex Assigned At Unknown Tobacco Control (Standard) Question Answer Notes Tobacco use: Nonsmoker AUDIT-C (Standard) Question Answer Notes Interpretation Positive Did you have a drink contain ing alcohol in the past year? Yes How often did you have six o r more drinks on one occasion in the past year? 2 to 4 times a month (2 points) How many drinks did you have on a typical day when you were drinking in the past year? 3 or 4 drinks (1 point) How often did you have a dri nk containing alcohol in the past year? 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 disorder (89494230) Insomnia due to other mental disorder (F51.05) Active confirmed Problem Posttraumatic stress disorder (35417052) Post traumatic stress disorder (PTSD) (F43.10) Active confirmed Encounters Encounter Location Date Provider Diagnosis [employer] [address] [address] 05/19/2024 Maribell Hemgrant Post traumatic stres s disorder (PTSD) F43.10 ; Major depressive disorder, recurrent severe without psychotic features F33.2 and Generalized anxiety disorder F41.1 [employer] [facility] [address] [address] 05/28/2024 Yesenia Mckenzie Major depressive disorder, recurrent severe without psychotic features F33.2 and Generalized anxiety disorder F41.1 [employer] [address] [facility] [address] [place] [address] 06/23/2024 Maribell Veronica Post traumatic stres s disorder (PTSD) F43.10 ; Major depressive disorder, recurrent severe without psychotic features F33.2 and Generalized anxiety disorder F41.1 [employer] [address] [place] [address] 06/24/2024 Yesenia Mckenzie Major depressive disorder, recurrent severe without psychotic features F33.2 and Generalized anxiety disorder F41.1 [facility], [facility] [address] [place] [address] 07/22/2024 Yesenia Mckenzie Major depressive disorder, recurrent severe without psychotic features F33.2 and Generalized anxiety disorder F41.1 [facility], [facility] [address] [place] [address] 05/19/2024 Yeseniamanolo Mckenzie [facility], [facility] [address] [place] [address] 05/20/2024 Yeseniamanolo Mckenzie [facility], [facility] [address] [place] [address] 05/21/2024 Yesenia Mckenzie [facility], [facility] [address] [place] [address] 05/21/2024 Yesenia Mckenzie [facility], [facility] [address] [place] [address] 05/21/2024 Yesenia Mckenzie [facility], [facility] [address] [place] [address] 05/27/2024 Yesenia Mckenzie [facility], [facility] [address] [place] [address] 06/19/2024 Yesenia Mckenzie [facility], [facility] [address] [place] [address] 08/19/2024 Yesenia Mckenzie [facility], [place] [address] [place] [address] 12/25/2024 Yesenia Mckenzie [facility], [facility] [address] [place] [address] 03/10/2025 Yesenia Mckenzie Assessments Encounter Date Diagnosis (ICD Code) Assessment Notes Treatment Notes Treatment Clinical Notes Section Notes 05/19/2024 Major depressive disorder, recurrent severe without psychotic features (ICD-10 - F33.2) 05/19/2024 Post traumatic stress disorder (PTSD) (ICD-10 - F43.10) 05/28/2024 Major depressive disorder, recurrent severe without psychotic features (ICD-10 - F33.2) 06/23/2024 Major depressive disorder, recurrent severe without psychotic features (ICD-10 - F33.2) 06/23/2024 Post traumatic stress disorder (PTSD) (ICD-10 - F43.10) 06/24/2024 Major depressive disorder, recurrent severe without psychotic features (ICD-10 - F33.2) 07/22/2024 Major depressive disorder, recurrent severe without psychotic features (ICD-10 - F33.2) Common side effects to SSRI medications include headaches, dry mouth/eye, GI upset (including indigestion, nausea, diarrhea), sleeping problems (insomnia or drowsiness), decreased libido, blurred vision, dizziness. Generally, side effects will subside or lessen with time and are common during drug initiation and dose changes. If they persist please contact the office. Common side effects of Wellbutrin include insomnia, increased anxiety, nausea, dizziness, decreased appetite, restlessness, irritability and anger, increased sweating or hot flashes, tremors, joint pain. Wellbutrin is not recommended in individuals with a history of seizures. If side effects persist, please contact the office. 07/22/2024 Generalized anxiety disorder (ICD-10 - F41.1) 06/24/2024 Generalized anxiety disorder (ICD-10 - F41.1) 06/23/2024 Generalized anxiety disorder (ICD-10 - F41.1) 05/28/2024 Generalized anxiety disorder (ICD-10 - F41.1) 05/19/2024 Generalized anxiety disorder (ICD-10 - F41.1) 05/28/2024 Other Increase sertraline to 100mg daily for anxiety, mood. Patient educated on all medications including potential benefits, side effects, risks. Educated on proper dosing schedule and importance of compliance. Continue counseling with Maribell. 06/24/2024 Other Increase sertraline to 75mg daily Patient educated on all medications including potential benefits, side effects, risks. Educated on proper dosing schedule and importance of compliance. 07/22/2024 Other Increase Wellbutrin to 300mg for mood Patient educated on all medications including potential benefits, side effects, risks. Educated on proper dosing schedule and importance of compliance. Discussed adding magnesium glycinate for sleep support, limiting simple carbs before bedtime. Plan Of Treatment Next Appt Details Provider Name:Maribell Veronica, 06/02/2025 03:00:00 PM, [address], [facility] [address], [place], [address], Insurance Providers Payer Name Payer Address Payer Phone Subscriber Number Group Number Insured Name Patient Relationship to Insured Coverage Start Date Coverage End Date [facility] [address] [place], [place] [phone] [id number] ANTWON KEBEDE Self - patient is the insured
[2025-05-10 16:46] LABS: Hemoglobin A1C 5.6 % (<5.7)
[2025-05-10 16:56] LABS: Thyroid Stimulating Hormone Reflex 3.400 uIU/mL (0.465-4.68)
[2025-05-11 11:08] LABS: FSH 5.6 mIU/mL (.); LH 20.6 mIU/mL (.)
[2025-05-13 02:07] LABS: Free Testosterone (Direct) 2.0 pg/mL (0.0-4.2)
== END 2025-05-10 14:55 | disposition home or self-care (01) ==
LOC: ANHLAB 14:57
PROVIDERS: PCP Nurse Practitioner Family; Visit Provider Obstetrics & Gynecology
DX: N92.6 Irregular menstruation, unspecified (principal); N91.1 Secondary amenorrhea
CPT/HCPCS: 36415; 82627; 83001; 83002; 83036; 83525; 84144; 84146; 84402; 84443

== ENCOUNTER 2025-05-27 07:24 | Outpatient (CLI) | payer OTHER, SELFPAY ==
--- OUTSIDE RECORDS SUMMARY | 2025-05-27 07:28 | XMS_ITS | Clinical Summary ---
Author Organization [facility] [employer] [place] Address [address] [address] Care Team Providers Care Nursery Nurse Name Role Phone Unavailable Primary Care Provider Unavailabl e Active Problems No known active problems Encounters Date Type Department Care Team Description 05/12/2025 External Device Data [facility] ABSTRACTION Provider, Abstract 05/11/2025 External Device Data [facility] Provider, Abstract 04/27/2025 External Device Data [facility] Provider, Abstract from Last 3 Months Social History Tobacco Use Types Packs/Day Years Used Date Smoking Tobacco: Never Assessed Comments Unknown Sex and Gender Information Value Date Recorded Sex Assigned at Not on file Legal Sex Female 8:47 AM CDT Gender Identity Not on file Sexual Orientation Not on file Last Filed Vital Signs Vital Sign Reading Time Taken Comments Blood Pressure 124/88 12/28/2024 9:33 AM RUBBER BALL FINISHER Pulse - - Temperature - - Respiratory Rate - - Oxygen Saturation - - Inhaled Oxygen Concentration - - Weight 108.4 kg (239 lb) 12/28/2024 9:33 AM RUBBER BALL FINISHER Height 180.3 cm (5' 11) 12/28/2024 9:33 AM RUBBER BALL FINISHER Body Mass Index 33.33 12/28/2024 9:33 AM RUBBER BALL FINISHER Plan of Treatment Health Maintenance Due Date Last Done Comments HPV VACCINES (1 - 3-dose series) 01/13/2011 DTAP/TDAP/TD VACCINES (1 - Tdap) 01/13/2015 HEPATITIS B VACCINES (1 of 3 - 19+ 3-dose series) 12/26 CERVICAL CANCER SCREENING 01/13/2017 HPV/Cotest (21-29) 01/13/2017 PAP SMEAR 01/13/2017 INFLUENZA VACCINE (#1) 2025 Insurance [employer] OPEN ACCESS [facility] OPEN ACCESS
--- OUTSIDE RECORDS SUMMARY | 2025-05-27 07:28 | XMS_ITS | Clinical Summary ---
Author Organization [facility] Address [address] [place] [address] Care Team Providers Care Bus And Trolley Inspecting Dispatcher Name Role Phone New Referring, Provider Primary [...] of 3 - 19+ 3-dose series) 01/13/2015 HPV Vaccines (1 - 3-dose SCD M series) 01/13/2023 COVID-19 Vaccine ( - 2023-2 5 season) 2024 Meningococcal B Vaccine Aged Out No l [...] topic Insurance GENERIC - COMMERCIAL Care Teams Bus And Trolley Inspecting Dispatcher Relationship Specialty Start Date End Date New Referring, Provider PCP - General UNKNOWN PHYSICIAN SPECIALTY 06/01/19
[2025-05-27 09:37] LABS: Hepatitis B Surface Anti Res Negative
[2025-05-28 08:08] LABS: Measles Antibodies, IgG 43.9 AU/mL (Immune >16.4)
[2025-05-28 14:08] LABS: Varicella-Zoster Ab, IgG Reactive (Non Reactive); Varicella-Zoster Ab, IgM <0.91 index (0.00-0.90)
== END 2025-05-27 07:25 | disposition home or self-care (01) ==
LOC: ANHLAB 07:25
PROVIDERS: PCP Nurse Practitioner Family; Visit Provider Nurse Practitioner Family
DX: Z11.1 Encounter for screening for respiratory tuberculosis (principal); Z11.59 Encounter for screening for other viral diseases
CPT/HCPCS: 36415; 86480; 86706; 86735; 86762; 86765; 86787

== ENCOUNTER 2025-07-28 05:58 | Emergency (ER) | payer OTHER, SELFPAY ==
--- OUTSIDE RECORDS SUMMARY | 2025-04-26 10:00 | XMS_ITS ---
Author Organization [facility] [employer] Address [address] [place] [address] Care Team Providers Care Director Social Name Role Phone Suzanna Soto APRN Primary Care Provider Yesenia Peterson Unavailable [phone] Maribell Castro Unavailable [phone] REASON FOR VISIT Therapy Social History Sex Assigned At : Social History Observation Description Sex Assigned At Unknown Encounters Encounter Location Date Provider Diagnosis [facility] [address] [place] [address] 04/26/2025 Maribell Castro Plan Of Treatment Next Appt Details Provider Name:Maribell Castro, 08/20/2025 11:00:00 AM, [address], [facility], [place], [address], Progress Notes * ANTWON KEBEDE EDOB:1994 (30 yo F)Acc No.[id number]:04/26/2025 Patient: Marcio ANTWON PEREZ Provider: Heena CASTRO LCSW :1995 A ge:30 Y S ex:Female Date:04/26/2025 Address:[address] [place] [address], [address] [place] [id number] Pcp:Suzanna Soto APRN Data: * Chief Complaints: * T herapy Billing Information: * Procedure Codes: * Electronic signature of Maribell Castro LCSW on 07/28/2025 at 07:23 AM CDT Sign off status: Pending Signatures: No Ad Hoc Signature Added * Provider: Heena CASTRO LCSW Date: 0 04/26/2025 Generated for Colin anand/Jani/Tian on: 1 07:23 AM CDT
--- OUTSIDE RECORDS SUMMARY | 2025-06-30 10:00 | XMS_ITS ---
Author Organization [facility] [employer] Address [address] [facility] [address] [place] [address] Care Team Providers Care Ground Worker Name Role Phone Suzanna Soto APRN Primary Care Provider Yesenia Peterson Unavailable [phone] Maribell Castro Unavailable [phone] REASON FOR VISIT 1 month f/u Social History Sex Assigned At : Social History Observation Description Sex Assigned At Unknown Encounters Encounter Location Date Provider Diagnosis [facility] [employer] [facility] [address] [facility] [address] [place] [address] 06/30/2025 Maribell Castro Plan Of Treatment Next Appt Details Provider Name:Maribell Castro, 08/20/2025 11:00:00 AM, [address], [facility] [address], [place], [address], Progress Notes * ANTWON KEBEDE EDOB:1994 (30 yo F)Acc No.[id number]:06/30/2025 Patient: Macrio PEREZ NATWON [place] Provider: Heena CASTRO LCSW :1995 A ge:30 Y S ex:Female Date:06/30/2025 Address:[facility] [place] [place] [facility] Pcp:Suzanna Soto APRN Data: * Chief Complaints: * 1 month f/u * Electronic signature of Maribell Castro LCSW on 07/28/2025 at 07:21 AM CDT Sign off status: Pending Signatures: No Ad Hoc Signature Added * Provider: Heena CASTRO LCSW Date: 0 06/30/2025 Generated for Colin Hoffman/Tian on: 1 07:21 AM CDT
--- OUTSIDE RECORDS SUMMARY | 2025-07-26 10:00 | XMS_ITS ---
Author Organization [facility] [employer] Address [address] [place] [address] Care Team Providers Care Inner Layer Scrubber Tender Name Role Phone Suzanna Soto APRN Primary Care Provider Yesenia Peterson Unavailable [phone] Maribell Castro Unavailable [phone] REASON FOR VISIT Therapy Follow Up Social History Sex Assigned At : Social History Observation Description Sex Assigned At Unknown Encounters Encounter Location Date Provider Diagnosis [facility] [place] [facility] [address] [place] [address] 07/26/2025 Maribell Castro Plan Of Treatment Next Appt Details Provider Name:Maribell Castro, 08/20/2025 11:00:00 AM, [address], [address], [place], [address], Progress Notes * ANTWON KEBEDE EDOB:1994 (30 yo F)Acc No.[id number]:07/26/2025 Patient: Marcio PEREZ ANTWON [place] Provider: Heena CASTRO LCSW :1995 A ge:30 Y S ex:Female Date:07/26/2025 Address:[facility] [place] [place] [facility] Pcp:Suzanna Soto APRN Data: * Chief Complaints: * T herapy Follow Up Billing Information: * Procedure Codes: * Electronic signature of Maribell Castro LCSW on 07/28/2025 at 07:22 AM CDT Sign off status: Pending Signatures: No Ad Hoc Signature Added * Provider: Heena CASTRO LCSW Date: 0 07/26/2025 Generated for Colin Hoffman/Tian on: 1 07:22 AM CDT
[2025-07-28 06:02] VITALS: BP 133/94; PULSE 91; RESP 16; TEMP 36.7; O2SAT 99
[2025-07-28 06:35] LABS: Hematocrit 30.1 % (37.0-47.0); Hemoglobin 9.4 g/dL (12.0-15.0); Immature Granulocyte Percent A 0.2 % (0-0.5); Lymphocytes Absolute Auto 2.09 K/mm3 (0.9-3.2); Mean Corpuscular HGB Conc 31.2 g/dl (32-36); Mean Corpuscular Hemoglobin 25.2 pg (26-34); Mean Corpuscular Volume 80.7 fl (80-100); Nucleated Red Blood Cells Absolute Auto 0.000 K/mm3 (0.0-0.012); Nucleated Red Blood Cells Perc 0.0 % (0.0-0.2); Platelet Count Result 306 k/mm3 (150-375); Red Blood Count 3.73 M/mm3 (4.2-5.4); White Blood Count 5.8 K/mm3 (4.5-10.0)
[2025-07-28 06:45] LABS: INR 1.1; Prothrombin Time 14.1 Seconds (11.1-14.7)
[2025-07-28 06:46] LABS: Alanine Aminotransferase 19 U/L (6-35); Albumin Level 3.7 g/dL (3.5-5.1); Alkaline Phosphatase 50 U/L (38-126); Anion Gap 5 mmol/L (4-12); Aspartate Amino Transferase 29 U/L (14-36); Bilirubin,Total 0.4 mg/dL (0.2-1.3); Blood Urea Nitrogen 9 mg/dL (7-17); Calcium 8.5 mg/dL (8.4-10.2); Carbon Dioxide 25 mmol/L (22-30); Chloride 106 mmol/L (98-107); Estimated CRCL calculation 96 ml/min; Estimated Glomerular Filt Rate 59; Glucose 102 mg/dL (65-110); Partial Thromboplastin Time 27.8 Seconds (22.3-36.8); Potassium 3.7 mmol/L (3.4-5.0); Sodium 136 mmol/L (137-145); Total Protein 6.7 g/dL (6.3-8.2)
[2025-07-28 07:01] LABS: Beta HCG Quantitative < 2.39 mIU/ML
--- OUTSIDE RECORDS SUMMARY | 2025-07-28 07:20 | XMS_ITS | Clinical Summary ---
Author Organization [facility] Address [address] [place] [address] Care Team Providers Care Boat Canvas Maker Installer Name Role Phone New Referring, Provider Primary [...] 3-dose SCD M series) 01/13/2023 COVID-19 Vaccine (1 - 2023-2 5 season) 2025 Meningococcal B Vaccine Aged Out No l [...] topic Insurance GENERIC - COMMERCIAL Care Teams Boat Canvas Maker Installer Relationship Specialty Start Date End Date New Referring, Provider PCP - General UNKNOWN PHYSICIAN SPECIALTY 06/01/19
--- OUTSIDE RECORDS SUMMARY | 2025-07-28 07:21 | XMS_ITS | Encounter Summary ---
Author Organization [facility] Care Team Providers Care Plug Wirer Name Role Phone No, Physician Primary Care Provider [phone] Encounter Details Date Type Department Care Team (Latest Contact Info) Description 12/22/2018 Orders Only [facility] ProviderDale MD [address] [place] [address] Social History Tobacco Use Types Packs/Day Years Used Date Smoking Tobacco: Never Assessed Comments Unknown Sex and Gender Information Value Date Recorded Sex Assigned at Not on file Legal Sex Female 9:08 PM SECURITY SHIFT SUPERVISOR Gender Identity Not on file Sexual Orientation [...] MRSA Comment:thinks 5 years ago when in [place]. had iv antibiotics for days 08/05/2019 08/04/20192020 5:00 AM CDT documented as of this encounter Care Teams Plug Wirer Relationship Specialty Start Date End Date No, Physician PCP - General 02/28/20 documented as of this encounter
--- OUTSIDE RECORDS SUMMARY | 2025-07-28 07:21 | XMS_ITS | Clinical Summary ---
Author Organization [facility] Address [address] [place] [address] Care Team Providers Care Tile Decorator Name Role Phone Suzanna Soto OPEN HEARTH HELPER-MARKET RISK MANAGER Primary Care Provider + Source Comments [facility],non-owned Affiliates and Associated Physician Practices is amultiple site organization consisting of ambulatory clinics and hospital sitesin [place], [place], [place] and [place]. This disclosure is being madepursuant to the Care Everywhere program and may not contain all information available regarding this patient. Last updated 18.[facility] Allergies Active Allergy Reactions Criticality Noted Date Comments Seasonal Cough,Eye Discomfort ,Eye Itching,Eye Redness,Headache,Itching,Shortness of Breath,Wheezing High 03/21/2007 Medications * Be aware that medications may not be up to date on this document. Alwaysverify current medications with the patient. rizatriptan (Maxalt) 5 MG tabletIndicatio ns:Intractable migraine with status migrainosus, unspecified migraine type TAKE 1 TABLET BY MOUTH 1 TIME AT EARLY ONSET OF MIGRAINE. MAY REPEAT 1 TIME AFTER 2 HOURS NEEDED 9 tablet 11 4 Active fluticasone propionate (Flonase) 50 MCG/ACT nasal spray SHAKE LIQUID AND USE 1 SPRAY IN EACH NOSTRIL TWICE DAILY 3 Active hydrocortisone (Hytone) 1 % ointment APPLY TOPICALLY TO THE AFFECTED AREA THREE TIMES DAILY NEEDED FOR RASH 4 Active Mirena, 52 MG, 20 MCG/DAY IUD 4 Active acetaZOLAMIDE ER 12hr (Diamox Sequel) 500 MG capsule Take 1 (one) capsule by mouth 2 times daily 60 capsule 11 4 Active doxycycline hyclate 100 MG tablet 4 Active buPROPion XL 24hr (Wellbutrin-XL) 300 MG tablet 1 tablet in the morning Orally Once a day for 90 days Active sertraline (Zoloft) 50 MG tablet 1.5 tablet Oral Once a day for 90 days Active traZODone (Desyrel) 50 MG tablet 1 tablet at bedtime as needed Oral Once a day for 90 days 4 Active albuterol HFA (Proventil; Ventolin; Proair) 108 (90 Base) MCG/ACT inhaler 4 Active Levonorgestrel (MIRENA, 52 MG, IU) MIRENA 21 MCG/24 HR (UP TO 8 YEARS) 52 MG INTRAUTERINE DEVICE 4 Active valACYclovir (Valtrex) 500 MG tablet Oral 4 Active fluticasone diskus (Flovent Diskus) 50 MCG/ACT inhaler Inhalation 4 Active topiramate (Topamax) 25 MG tabletIndicatio ns:Intractable migraine with status migrainosus, unspecified migraine type TAKE 1 TABLET BY MOUTH TWICE DAILY 180 tablet 3 4 Active Active Problems No known active problems Family History Medical History Relation Name Comments [...] of Binge Drinking Not on file 04/28 Comments Unknown Sex and Gender Information Value Date Recorded Sex Assigned at Female 05/11/2024 7:36 AM CDT Legal Sex Female 9:54 AM CDT Gender Identity Female 05/11/2024 7:36 AM CDT Sexual Orientation Straight 05/11/2024 7: 36 AM CDT Last Filed Vital Signs Vital Sign Reading Time Taken Comments Blood Pressure 154/95 05/26/2024 6:54 AM CDT Pulse 65 05/26/2024 6:54 AM CDT Temperature 36.4 C (97.6 F) 05/26/2024 6:54 AM CDT Respiratory Rate 18 05/26/2024 6:54 AM CDT Oxygen Saturation 100% 05/26/2024 6:54 AM CDT Inhaled Oxygen Concentration - - Weight 86.2 kg (190 lb) 05/26/2024 6:54 AM CDT Height 180.3 cm (5' 11) 05/26/2024 6:54 AM CDT Body Mass Index 26.5 05/26/2024 6:54 AM CDT Plan of Treatment Health Maintenance Due Date Last Done Comments HIV SCREENING 01/13/2011 HEPATITIS C SCREENING 01/09/2014 DTAP/TDAP/TD VACCINES (1 - Tdap) 01/13/2015 HEPATITIS B VACCINE (1 of 3 - 19+ 3-dose series) 01/13/2015 PAP SMEAR 01/13/2017 HPV VACCINE (1 - 3-dose SCDM series) 01/13/2023 DEPRESSION SCREENING 10/28/2024 COVID-19 VACCINE (3 - 2024-2 6 season) 2025 09/15/2021, 08/25/2021 INFLUENZA VACCINE (#1) 2025 ZOSTER VACCINE (1 of 2) 01/13/2046 HIB VACCINE Aged Out No longer eligi ble based on patient's age to complete this topic MENINGOCOCCAL (Group B) VACCINE SHARED DECISION-MAKING Aged Out No longer eligible based on patient's age to complete this topic MENINGOCOCCAL GROUPS A/C/Y/W VACCINE Aged Out No longer eligible b ased on patient's age to complete this topic PNEUMOCOCCAL VACCINE Aged Out No long er eligible based on patient's age to complete this topic Insurance [facility] MEDICAID - [place] Care Teams Tile Decorator Relationship Specialty Start Date End Date Suzanna Soto APRN-CNP [address] [place] [address] PCP - General 02/06/24
--- OUTSIDE RECORDS SUMMARY | 2025-07-28 07:21 | XMS_ITS | Clinical Summary ---
Author Organization [facility] Address [address] [place] [address] Care Team Providers Care Laundromat Manager Name Role Phone No, Physician Primary Care Provider [phone] Allergies Active Allergy Reactions Criticality Noted Date [...] discs 10/08/2024 Abnormal uterine bleeding (AUB) 10/23/2021 Medical History Medical History Date Comments Asthma PE (pulmonary thromboembolism) 2015 Family History Medical History Relation Name Comments [...] on file Legal Sex Female 9:08 PM SHOWER ATTENDANT Gender Identity Not on file Sexual Orientation Not on file Obstetrics History Last Filed Vital Signs Vital Sign Reading Time Taken Comments Blood Pressure 112/76 10/19/2021 10:44 AM SHOWER ATTENDANT Pulse 76 09/26/2021 8:40 PM SHOWER ATTENDANT Temperature 36.8 C (98.2 F) 09/26/2021 3:57 PM SHOWER ATTENDANT Respiratory Rate 18 09/26/2021 8:40 PM SHOWER ATTENDANT Oxygen Saturation 100% 09/26/2021 8:40 PM SHOWER ATTENDANT Inhaled Oxygen Concentration - - Weight 106.6 kg (235 lb) 10/19/2021 10:44 AM SHOWER ATTENDANT Height 180.3 cm (5' 10.98) 10/19/2021 10:44 AM SHOWER ATTENDANT Body Mass Index 32.79 10/19/2021 10:44 AM SHOWER ATTENDANT Plan of Treatment Health Maintenance Due Date Last Done Comments Cervical Cancer Screening 1996 Depression Screening 1996 Hepatitis C Screening 1996 Varicella Vaccines (1 of 2 - 13+ 2-dose series) 2008 Hepatitis B Screening 01/13/2014 Regular Well Visit/Exam 18-64 01/13/2014 Pneumococcal vaccine <65 (1 of 2 - PCV) 01/13/2015 HPV Vaccines (1 - 3-dose SCDM series) 01/13/2023 Influenza Vaccine (#1) 2025 DTaP/Tdap/Td Vaccine (2 - Td or Tdap) 02/26/203011/2019 Insurance [facility] Care Teams Laundromat Manager Relationship Specialty Start Date End Date No, Physician PCP - General 02/28/20
--- OUTSIDE RECORDS SUMMARY | 2025-07-28 07:22 | XMS_ITS | Encounter Summary ---
Author Organization [facility] Address [address] [place] [address] Care Team Providers Care Rail Car Mechanic Name Role Phone Unavailable Primary Care Provider Unavailabl e Encounter Details Date Type Department Care Team (Late st Contact Info) Description 07/27/2025 External Device Data [facility] Provider, Abstract NO ADDRESS ON FILE Social History Tobacco Use Types Packs/Day Years Used Date Smoking Tobacco: Never Assessed Comments Unknown Sex and Gender Information Value Date Recorded Sex Assigned at Not on file Legal Sex Female 8:47 AM CDT Gender Identity Not on file Sexual Orientation Not on file documented as of this encounter Plan of Treatment Not on file documented as of this encounter Visit Diagnoses Not on filedocumented in this encounter
--- OUTSIDE RECORDS SUMMARY | 2025-07-28 07:23 | XMS_ITS | Patient Health Record ---
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 Name Role Phone Suzanna Soto APRN Primary Care Provider Yesenai Peterson Unavailable [phone] Maribell Veronica Unavailable [phone] Allergies No Known Allergies Reason For Referral No Information Medications Medication SIG (Take, Route, Frequency, Duration) Notes Start Date End Date Status Fluticasone Propionate Diskus 50 MCG/ACT Aerosol Powder Breath Activated Inhalation *Reorder from [employer] for eRx and Interaction Alerts* 02/26/2024 Unknown Gabapentin 100 MG Capsule Oral 02/26/2024 Unknown hydrOXYzine HCl 10 MG Tablet 1 tablet Orally three times a day; Duration: 30 days 04/29/2024 Active Sertraline HCl 50 MG Tablet 1.5 tablet Oral Once a day; Duration: 90 days Active Topiramate 25 MG Tablet Oral 02/26/2024 Unknown LIDOCAINE/ANTACID/WAL -DRYL 111 *Reorder from [employer] for eRx and Interaction Alerts* 02/26/2024 Unknown Rizatriptan Benzoate 5 MG Tablet Oral 02/26/2024 Unknown MIRENA 21 MCG/24 HR (UP TO 8 YEARS) 52 MG INTRAUTERINE DEVICE *Reorder from [employer] for eRx and Interaction Alerts* 02/26/2024 Unknown traZODone HCl 50 MG Tablet 1 tablet at bedtime as needed Oral Once a day; Duration: 90 days 02/26/2024 Active buPROPion HCl ER (XL) 300 MG Tablet Extended Release 24 Hour 1 tablet in the morning Orally Once a day; Duration: 90 days Active OXcarbazepine 600 MG Tablet Oral 02/26/2024 Unknown Social History Tobacco Use: Social History Observation Description Date Details (start date - stop date) Never Smoker NA - NA Sex Assigned At : Social History Observation Description Sex Assigned At Unknown Social History Drug/Alcohol: Social Info Question Answer Notes AUDIT-C (Standard) Interpretation Positive Did you have a drink contain ing alcohol in the past year? Yes How often did you have six or more drinks on one occasion in the past year? 2 to 4 times a month (2 points) How many drinks did you have on a typical day when you were drinking in the past year? 3 or 4 drinks (1 point) How often did you have a drink containing alcohol in the past year? Monthly or less (1 point) Tobacco Use: Social Info Question Answer Notes Tobacco Control (Standard) Tobacco use: Nonsmoker Additional Details Category Social Info Options Details Migrated Social History Migrated Social History Alcohol Intake: Occasional 02/26/2024,Tobacco Years: Never smoker 02/26/2024 Problems Problem Type SNOMED Code ICD Code Onset Dates Problem Status W/U Status Risk Notes Problem Severe recurrent major depression without psychotic features (17934032) Major depressive disorder, recurrent severe without psychotic features (F33.2) Active confirmed Problem Generalized anxiety disorder (72779891) Generalized anxiety disorder (F41.1) Active confirmed Problem Insomnia disorder related to another mental disorder (82546977) Insomnia due to other mental disorder (F51.05) Active confirmed Problem Posttraumatic stress disorder (28523172) Post traumatic stress disorder (PTSD) (F43.10) Active confirmed Encounters Encounter Location Date Provider Diagnosis [facility] Only-apartments [address] [address] 06/02/2025 Maribell Veronica Post traumatic stres s disorder (PTSD) F43.10 ; Major depressive disorder, recurrent severe without psychotic features F33.2 and Generalized anxiety disorder F41.1 [facility] Only-apartments [facility] [address] [facility] [address] [address] 08/19/2024 Yesenia Mckenzie [facility] [place] [id number] [facility] [address] [address] 12/25/2024 Yesenia Mckenzie [facility] [place] [address] [facility] [address] [facility] [address] [place] [address] 03/10/[address] [facility], [facility] [address] [place] [address] 06/27/2025 Yesenia Mckenzie Assessments Encounter Date Diagnosis (ICD Code) Assessment Notes Treatment Notes Treatment Clinical Notes Section Notes 06/02/2025 Major depressive disorder, recurrent severe without psychotic features (ICD-10 - F33.2) 06/02/2025 Post traumatic stress disorder (PTSD) (ICD-10 - F43.10) 06/02/2025 Generalized anxiety disorder (ICD-10 - F41.1) Plan Of Treatment Next Appt Details Provider Name:Maribell Veronica, 08/20/2025 11:00:00 AM, [address], [address], [place], [address], Insurance Providers Payer Name Payer Address Payer Phone Subscriber Number Group Number Insured Name Patient Relationship to Insured Coverage Start Date Coverage End Date Thierno [address] [place], [place] [phone] [id number] ANTWON KEBEDE Self - patient is the insured
--- OUTSIDE RECORDS SUMMARY | 2025-07-28 07:23 | XMS_ITS | Clinical Summary ---
Author Organization [facility] [employer] Address [address] [address] Care Team Providers Care Physician Neonatology Name Role Phone Unavailable Primary Care Provider Unavailabl e Active Problems No known active problems Encounters Date Type Department Care Team Description 07/27/2025 External Device Data [facility] ABSTRACTION Provider, Abstract 06/02/2025 External Device Data [facility] Provider, Abstract 06/01/2025 External Device Data [facility] Provider, Abstract 05/12/2025 External Device Data [facility] Provider, [...] Comments Blood Pressure 124/88 12/28/2024 9:33 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 Pulse - - Temperature - - Respiratory Rate - - Oxygen Saturation - - Inhaled Oxygen Concentration - - Weight 108.4 kg (239 lb) 12/28/2024 9:33 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 Height 180.3 cm (5' 11) 12/28/2024 9:33 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 Body Mass Index 33.33 12/28/2024 9:33 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 Plan of Treatment Health Maintenance Due Date Last Done Comments DTAP/TDAP/TD VACCINES (1 - Tdap) 01/13/2015 HEPATITIS B VACCINES (1 of 3 - 19+ 3-dose series) 12/26 CERVICAL CANCER SCREENING 01/13/2017 HPV/Cotest (21-29) 01/13/2017 PAP SMEAR 01/13/2017 HPV VACCINES (1 - 3-dose SCDM series) 01/13/2023 INFLUENZA VACCINE (#1) 2025 Insurance ALLEGIANCE OPEN ACCESS ALLEGIANCE OPEN ACCESS
--- NOTE | 2025-07-28 07:35 | ED_ITS ---
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 Patient did have an IUD placed on . Patient reports she did discuss the bleeding with that physician. Patient reports that she has had increasing generalized weakness daytime tiredness over the last few days and she attributed this to her persistent bleeding. Related Data Allergies Allergy/AdvReac Type Severity Reaction Status Date / Time No Known Allergies Allergy Verified 07/28/25 06:06 [facility] Past Medical History Medical History Encounter for IUD removal Glaucoma Vaginal odor IUD surveillance Laryngopharyngeal reflux Osteoporosis Anxiety History of airborne allergies History of uterine fibroid ??? Per pt History of pulmonary embolism From OCP's Anemia Asthma Surgical History Surgical History [place] teeth removed Family History Family History Mother Asthma Diabetes mellitus Hypertension Heart disease Cerebrovascular accident Thyroid disorder Depression Sibling Asthma Diabetes mellitus Depression Hypertension Heart disease Grandparent Asthma Hypertension Father Hypertension Social History Social History Social History: Caffeine-daily Smoking status: Never smoker Alcohol intake: current Alcohol use details: Rarely, special occasions Substance use: never Substance use type: does not use Do You Feel Safe in your Home?: Yes Lack of Transportation: No Lack of Food: Never True Current Housing: I Have Housing Concerned About Future Housing: No Difficulty Paying Gas/Electric Bills: No Difficulty Paying for Meds: No Currently Unemployed: No Education: Bachelor's Degree Difficulty w/ Childcare or Family Care: No Living arrangements: alone Gender identity (if verbalized by the patient): Female Course Vital Signs Vital signs: Vital Signs Temperature 98.1 F 07/28/25 06:02 Pulse Rate 91 07/28/25 06:02 Respiratory Rate 16 07/28/25 06:02 Blood Pressure 133/94 H 07/28/25 06:02 Pulse Oximetry 99 07/28/25 06:02 Oxygen Delivery Room Air 07/28/25 06:02 Temperature 98.1 F 07/28/25 06:02 Pulse Rate 91 07/28/25 06:02 Respiratory Rate 16 07/28/25 06:02 Blood Pressure 133/94 H 07/28/25 06:02 Pulse Oximetry 99 07/28/25 06:02 Oxygen Delivery Room Air 07/28/25 06:02 Medical Decision Making MDM Narrative Medical decision making narrative: 30-year-old female presents emergency department for evaluation for persistent vaginal bleeding. Patient is currently afebrile with no leukocytosis and hemoglobin of 9.4 which is lower than her recent baseline. Patient does have an INR 1.1. No acute abnormalities on her CMP patient's blood type is A positive. Patient is beta hCG was negative and patient is not . Patient does have a copper IUD in place. Dr Estrada Vital Signs Vital Signs: Vital Signs Temperature 98.1 F 07/28/25 06:02 Pulse Rate 91 07/28/25 06:02 Respiratory Rate 16 07/28/25 06:02 Blood Pressure 133/94 H 07/28/25 06:02 Pulse Oximetry 99 07/28/25 06:02 Oxygen Delivery Room Air 07/28/25 06:02 Temperature 98.1 F 07/28/25 06:02 Pulse Rate 91 07/28/25 06:02 Respiratory Rate 16 07/28/25 06:02 Blood Pressure 133/94 H 07/28/25 06:02 Pulse Oximetry 99 07/28/25 06:02 Oxygen Delivery Room Air 07/28/25 06:02 Lab Data 07/28/25 06:27 07/28/25 06:27 Labs: Lab Results 07/28/25 Range/Units 06:27 WBC 5.8 (4.5-10.0) K/mm3 RBC 3.73 L (4.2-5.4) M/mm3 Hgb 9.4 L D (12.0-15.0) g/dL Hct 30.1 L (37.0-47.0) % MCV 80.7 (80-100) fl MCH 25.2 L (26-34) pg MCHC 31.2 L (32-36) g/dl RDW 14.7 H (11.5-14.5) % Plt Count 306 (150-375) k/mm3 MPV 9.0 (7.4-10.4) fl Immature Gran % (Auto) 0.2 (0-0.5) % Neut % (Auto) 50.3 (45.5-73.1) % Lymph % (Auto) 35.8 (18.3-44.2) % [place] % (Auto) 8.2 (2.6-8.5) % Eos % (Auto) 4.8 H (0-4.4) % Baso % (Auto) 0.7 (0.2-1.2) % Lymph # (Auto) 2.09 (0.9-3.2) K/mm3 [place] # (Auto) 0.5 (0.1-0.6) K/mm3 Eos # (Auto) 0.3 (0-0.3) K/mm3 Baso # (Auto) 0.0 (0.0-0.1) K/mm3 Abs Immat Gran (auto) 0.01 (0.00-0.031) K/mm3 Absolute Neuts (auto) 2.9 (1.3-6.7) K/mm3 Absolute Nucleated RBC 0.000 (0.0-0.012) K/mm3 Nucleated RBC % 0.0 (0.0-0.2) % PT 14.1 (11.1-14.7) Seconds INR 1.1 APTT 27.8 (22.3-36.8) Seconds Sodium 136 L (137-145) mmol/L Potassium 3.7 (3.4-5.0) mmol/L Chloride 106 (98-107) mmol/L Carbon Dioxide 25 (22-30) mmol/L Anion Gap 5 (4-12) mmol/L BUN 9 D (7-17) mg/dL Creatinine 1.09 H (0.7-1.0) mg/dL Estim Creat Clear Calc 96 ml/min Estimated GFR 59 (59 - ) Glucose 102 (65-110) mg/dL Calcium 8.5 (8.4-10.2) mg/dL Total Bilirubin 0.4 (0.2-1.3) mg/dL AST 29 (14-36) U/L ALT 19 (6-35) U/L Alkaline Phosphatase 50 (38-126) U/L Total Protein 6.7 (6.3-8.2) g/dL Albumin 3.7 (3.5-5.1) g/dL Beta HCG, Quant < 2.39 mIU/ML Blood Type A Positive Antibody Screen Negative Screen Not Reportable Baby's Blood Type Not Reportable Baby's ISABEL Not Reportable Doses of RhIg Required 0 Discharge Plan Discharge Patient Language: Chinese Prescriptions: No Action albuterol sulfate 90 mcg/actuation HFA aerosol inhaler 2 puff inhalation Q4H PRN (Reason: shortness of breath or wheezing) Qty: 8.5 0RF albuterol 90 mcg-budesonide 80 mcg/actuation HFA aerosol inhaler 90-80 mcg/actuation HFA aerosol inhaler 0RF Follow-up/Referrals: Suzanna Soto APRN [Primary Care Provider, Internal Medicine]
--- NOTE | 2025-07-28 07:42 | ED_ITS ---
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 Patient did have an IUD placed on . Patient reports she did discuss the bleeding with that physician. Patient reports that she has had increasing generalized weakness daytime tiredness over the last few days and she attributed this to her persistent bleeding. Related Data Allergies Allergy/AdvReac Type Severity Reaction Status Date / Time No Known Allergies Allergy Verified 07/28/25 06:06 Review of Systems 2 Review of Systems: All systems reviewed & are unremarkable except as noted in HPI and below PMFSH Past Medical History Medical History Encounter for IUD removal Glaucoma Vaginal odor IUD surveillance Laryngopharyngeal reflux Osteoporosis Anxiety History of airborne allergies History of uterine fibroid ??? Per pt History of pulmonary embolism From OCP's Anemia Asthma Surgical History Surgical History [place] teeth removed Family History Family History Mother Asthma Diabetes mellitus Hypertension Heart disease Cerebrovascular accident Thyroid disorder Depression Sibling Asthma Diabetes mellitus Depression Hypertension Heart disease Grandparent Asthma Hypertension Father Hypertension Social History Social History Social History: Caffeine-daily Smoking status: Never smoker Alcohol intake: current Alcohol use details: Rarely, special occasions Substance use: never Substance use type: does not use Do You Feel Safe in your Home?: Yes Lack of Transportation: No Lack of Food: Never True Current Housing: I Have Housing Concerned About Future Housing: No Difficulty Paying Gas/Electric Bills: No Difficulty Paying for Meds: No Currently Unemployed: No Education: Bachelor's Degree Difficulty w/ Childcare or Family Care: No Living arrangements: alone Gender identity (if verbalized by the patient): Female Exam 2 Narrative: APPEARANCE: Well appearing, no pain, no distress, well-nourished. HEAD: normocephalic, atraumatic. EYES: PERRLA/EOMI, conjunctivae clear. NOSE: Normal no drainage EARS:TMS clear with good light reflex. THROAT: Pharynx clear, no exudate. NECK: Supple. No adenopathy, no masses. RESPIRATORY: Airway patent, respirations nonlabored. Clear to auscultation bilaterally, no rales, rhonchi, wheezing. CARDIOVASCULAR: Regular rate and rhythm without murmurs rubs or gallops. ABDOMINAL: Soft, nontender, nondistended, normal bowel sounds MUSCULOSKELETAL: Moves all extremities. Strength/ROM intact, No edema, No calf tenderness. NEURO: Alert. Cranial nerves II through XII intact. Grossly intact SKIN: Warm, dry. Normal Color Course Vital Signs Vital signs: Vital Signs Temperature 98.1 F 07/28/25 06:02 Pulse Rate 91 07/28/25 06:02 Respiratory Rate 16 07/28/25 06:02 Blood Pressure 133/94 H 07/28/25 06:02 Pulse Oximetry 99 07/28/25 06:02 Oxygen Delivery Room Air 07/28/25 06:02 Temperature 98.1 F 07/28/25 06:02 Pulse Rate 75 07/28/25 08:58 Respiratory Rate 18 07/28/25 08:58 Blood Pressure 147/82 H 07/28/25 08:58 Pulse Oximetry 99 07/28/25 08:58 Oxygen Delivery Room Air 07/28/25 06:02 Medical Decision Making [facility] Narrative Medical decision making narrative: 30-year-old female present emergency department for evaluation for persistent vaginal bleeding. Patient's vital signs are within normal limits. Patient is not tachycardic. Patient is afebrile no leukocytosis hemoglobin is 9.4 which is lower than her baseline of 11-12. INR is 1.1. Patient's platelets are 306. Patient has low on iron binding. Patient's test was negative. Discussed case with Dr. Estrada. Patient will be started on doxycycline in for the next 7 days. Patient was also started on p.o. TXA. Patient was encouraged of close follow-up with OB Gyne Differential Diagnosis Differential Diagnosis: Cervicitis, dysfunctional vaginal bleeding, anemia, dehydration, orthostatic hypertension, COVID, RSV, influenza, UTI Vital Signs Vital Signs: Vital Signs Temperature 98.1 F 07/28/25 06:02 Pulse Rate 91 07/28/25 06:02 Respiratory Rate 16 07/28/25 06:02 Blood Pressure 133/94 H 07/28/25 06:02 Pulse Oximetry 99 07/28/25 06:02 Oxygen Delivery Room Air 07/28/25 06:02 Temperature 98.1 F 07/28/25 06:02 Pulse Rate 75 07/28/25 08:58 Respiratory Rate 18 07/28/25 08:58 Blood Pressure 147/82 H 07/28/25 08:58 Pulse Oximetry 99 07/28/25 08:58 Oxygen Delivery Room Air 07/28/25 06:02 Lab Data Lab results reviewed: Yes I reviewed the patient's lab results. 07/28/25 06:27 07/28/25 06:27 Labs: Lab Results 07/28/25 07/28/25 Range/Units 06:26 06:27 WBC 5.8 (4.5-10.0) K/mm3 RBC 3.73 L (4.2-5.4) M/mm3 Hgb 9.4 L D (12.0-15.0) g/dL Hct 30.1 L (37.0-47.0) % MCV 80.7 (80-100) fl MCH 25.2 L (26-34) pg MCHC 31.2 L (32-36) g/dl RDW 14.7 H (11.5-14.5) % Plt Count 306 (150-375) k/mm3 MPV 9.0 (7.4-10.4) fl Immature Gran % (Auto) 0.2 (0-0.5) % Neut % (Auto) 50.3 (45.5-73.1) % Lymph % (Auto) 35.8 (18.3-44.2) % [place] % (Auto) 8.2 (2.6-8.5) % Eos % (Auto) 4.8 H (0-4.4) % Baso % (Auto) 0.7 (0.2-1.2) % Lymph # (Auto) 2.09 (0.9-3.2) K/mm3 [place] # (Auto) 0.5 (0.1-0.6) K/mm3 Eos # (Auto) 0.3 (0-0.3) K/mm3 Baso # (Auto) 0.0 (0.0-0.1) K/mm3 Abs Immat Gran (auto) 0.01 (0.00-0.031) K/mm3 Absolute Neuts (auto) 2.9 (1.3-6.7) K/mm3 Absolute Nucleated RBC 0.000 (0.0-0.012) K/mm3 Nucleated RBC % 0.0 (0.0-0.2) % PT 14.1 (11.1-14.7) Seconds INR 1.1 APTT 27.8 (22.3-36.8) Seconds Sodium 136 L (137-145) mmol/L Potassium 3.7 (3.4-5.0) mmol/L Chloride 106 (98-107) mmol/L Carbon Dioxide 25 (22-30) mmol/L Anion Gap 5 (4-12) mmol/L BUN 9 D (7-17) mg/dL Creatinine 1.09 H (0.7-1.0) mg/dL Estim Creat Clear Calc 96 ml/min Estimated GFR 59 (59 - ) Glucose 102 (65-110) mg/dL Calcium 8.5 (8.4-10.2) mg/dL Iron 28 L (37-170) ug/dL TIBC 377 (261-462) ug/dL % Saturation 7 L (20-50) % Total Bilirubin 0.4 (0.2-1.3) mg/dL AST 29 (14-36) U/L ALT 19 (6-35) U/L Alkaline Phosphatase 50 (38-126) U/L Total Protein 6.7 (6.3-8.2) g/dL Albumin 3.7 (3.5-5.1) g/dL Beta HCG, Quant < 2.39 mIU/ML Blood Type A Positive Antibody Screen Negative Screen Not Reportable Baby's Blood Type Not Reportable Baby's ISABEL Not Reportable Doses of RhIg Required 0 Discharge Plan Discharge Clinical Impression: PCOS (polycystic ovarian syndrome), Abnormal vaginal bleeding Patient Disposition: Home Condition: Stable Instructions: Antibiotic Form Additional Instructions: Your being started on doxycycline after placement of the IUD. You also being started on TXA to help with that the vaginal bleeding. Take a daily iron supplement. Follow-up balanced diet and drink plenty of fluids. Have close follow-up with OB Gyne. If you have any worsening symptoms please call or return to the emergency department. Patient Language: Polish Prescriptions: New tranexamic acid 650 mg tablet 1,300 mg PO TID 5 Days Qty: 30 0RF doxycycline monohydrate 100 mg capsule 100 mg PO BID 7 Days Qty: 14 0RF No Action albuterol sulfate 90 mcg/actuation HFA aerosol inhaler 2 puff inhalation Q4H PRN (Reason: shortness of breath or wheezing) Qty: 8.5 0RF albuterol 90 mcg-budesonide 80 mcg/actuation HFA aerosol inhaler 90-80 mcg/actuation HFA aerosol inhaler 0RF Follow-up/Referrals: Suzanna Soto APRN [Primary Care Provider, Internal Medicine] Siddharth Estrada MD [Physician, HEALTH OFFICER]
[2025-07-28 07:46] LABS: Iron 28 ug/dL (37-170)
[2025-07-28] MEDS: LACTATED RINGERS 1,000 ML 999 ML IV CONT (07:49)
[2025-07-28 07:56] LABS: Percent Iron Saturation 7 % (20-50)
[2025-07-28 08:58] VITALS: BP 147/82; PULSE 75; RESP 18; O2SAT 99
== END 2025-07-28 08:59 | disposition home or self-care (01) ==
PROVIDERS: Student in an Organized Health Care Education/Training Program; Emergency Provider Emergency Medicine; PCP Nurse Practitioner Family
DX: N93.9 Abnormal uterine and vaginal bleeding, unspecified (principal); E28.2 Polycystic ovarian syndrome; J45.909 Unspecified asthma, uncomplicated; H40.9 Unspecified glaucoma; M81.0 Age-related osteoporosis without current pathological fracture; D64.9 Anemia, unspecified; Z97.5 Presence of (intrauterine) contraceptive device; Z86.711 Personal history of pulmonary embolism
CPT/HCPCS: 36415; 80053; 83540; 83550; 84702; 85025; 85461; 85610; 85730; 86850; 86900; 86901; 96360; 99284; J7120

== ENCOUNTER 2025-09-11 08:17 | Outpatient (CLI) | payer OTHER, SELFPAY ==
--- OUTSIDE RECORDS SUMMARY | 2025-09-11 08:20 | XMS_ITS | Encounter Summary ---
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 had iv antibiotics for days 08/05/2019 08/04/20192020 5:00 AM CDT documented as of this encounter Care Teams Cad Application Support Specialist Relationship Specialty Start Date End Date No, Physician PCP - General 02/28/20 documented as of this encounter
--- OUTSIDE RECORDS SUMMARY | 2025-09-11 08:21 | XMS_ITS | Clinical Summary ---
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 Gender Identity Not on file Sexual Orientation Not on file Last Filed Vital Signs Vital Sign Reading Time Taken Comments Blood Pressure 112/76 10/19/2021 10:44 AM COOLING MACHINE OPERATOR Pulse 76 09/26/2021 8:40 PM COOLING MACHINE OPERATOR Temperature 36.8 C (98.2 F) 09/26/2021 3:57 PM COOLING MACHINE OPERATOR Respiratory Rate 18 09/26/2021 8:40 PM COOLING MACHINE OPERATOR Oxygen Saturation 100% 09/26/2021 8:40 PM COOLING MACHINE OPERATOR Inhaled Oxygen Concentration - - Weight 106.6 kg (235 lb) 10/19/2021 10:44 AM COOLING MACHINE OPERATOR Height 180.3 cm (5' 10.98) 10/19/2021 10:44 AM COOLING MACHINE OPERATOR Body Mass Index 32.79 10/19/2021 10:44 AM COOLING MACHINE OPERATOR Plan of Treatment Health Maintenance Due Date [...] (2 - Td or Tdap) 02/26/203011/2019 Insurance [facility] Care Teams Pump Installer Relationship Specialty Start Date End Date No, Physician PCP - General 02/28/20
--- OUTSIDE RECORDS SUMMARY | 2025-09-11 08:21 | XMS_ITS | Clinical Summary ---
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 MECHANIC Pulse - - Temperature - - Respiratory Rate - - Oxygen Saturation - - Inhaled Oxygen Concentration - - Weight 108.4 kg (239 lb) 12/28/2024 9:33 AM EDGE TRIMMER MECHANIC Height 180.3 cm (5' 11) 12/28/2024 9:33 AM EDGE TRIMMER MECHANIC Body Mass Index 33.33 12/28/2024 9:33 AM EDGE TRIMMER MECHANIC Plan of Treatment Health Maintenance Due Date Last Done Comments DTAP/TDAP/TD VACCINES (1 - Tdap) 01/13/2015 HEPATITIS B VACCINES (1 of 3 - 19+ 3-dose series) 12/26 CERVICAL CANCER SCREENING 01/13/2017 HPV/Cotest (21-29) 01/13/2017 PAP SMEAR 01/13/2017 HPV VACCINES (1 - 3-dose SCDM series) 01/13/2023 INFLUENZA VACCINE (#1) 2025 Insurance [employer]LE[employer]ANCE OPEN ACCESS ALLEGIANCE OPEN ACCESS
[2025-09-11 08:47] LABS: Hematocrit 32.9 % (37.0-47.0); Hemoglobin 9.7 g/dL (12.0-15.0); Immature Granulocyte Percent A 0.3 % (0-0.5); Lymphocytes Absolute Auto 2.78 K/mm3 (0.9-3.2); Mean Corpuscular HGB Conc 29.5 g/dl (32-36); Mean Corpuscular Hemoglobin 22.2 pg (26-34); Mean Corpuscular Volume 75.5 fl (80-100); Nucleated Red Blood Cells Absolute Auto 0.000 K/mm3 (0.0-0.012); Nucleated Red Blood Cells Perc 0.0 % (0.0-0.2); Platelet Count Result 326 k/mm3 (150-375); Red Blood Count 4.36 M/mm3 (4.2-5.4); White Blood Count 7.5 K/mm3 (4.5-10.0)
[2025-09-11 09:09] LABS: Hypochromasia 1+; Microcytosis 1+ (NORMAL); Ovalocytes 1+; Polychromasia 1+
[2025-09-11 09:10] LABS: Burr Cells Occasional; Schistocytes 1+
[2025-09-11 09:23] LABS: Iron 27 ug/dL (37-170)
[2025-09-11 10:05] LABS: Ferritin 5.78 ng/mL (6.24-137)
[2025-09-12 05:38] LABS: FSH 4.5 mIU/mL (.); LH 19.9 mIU/mL (.)
== END 2025-09-11 08:18 | disposition home or self-care (01) ==
LOC: ANHLAB 08:17
PROVIDERS: Visit Provider Obstetrics & Gynecology
DX: N92.6 Irregular menstruation, unspecified (principal); D50.0 Iron deficiency anemia secondary to blood loss (chronic)
CPT/HCPCS: 36415; 82728; 83001; 83002; 83540; 85025